=== PATIENT | female | born 1940 | race Caucasian/White ===

== ENCOUNTER 2018-02-05 02:13 | Outpatient (CLI) | payer MEDICARE, OTHER, SELFPAY ==
[2018-02-05 08:18] LABS: ALT 26 U/L (12-78); AST 20 U/L (15-37); Albumin 3.7 g/dL (3.4-5.0); Alkaline Phosphatase 95 U/L (46-116); Anion Gap 6.1 mmol/L (3-11); BUN 17 mg/dL (7-18); Bilirubin, Total 0.5 mg/dL (0.2-1.0); CO2 29.9 mmol/L (21.0-32.0); CREATININE 0.77 mg/dL (0.55-1.02); Chloride 104 mmol/L (98-107); Cholesterol 249 mg/dL (50-200); Glucose 87 mg/dL (70-100); HDL Cholesterol 84 mg/dL (40-60); LDL CHOLESTEROL 147 mg/dL (<100); Potassium 4.5 mmol/L (3.5-5.1); Sodium 140 mmol/L (136-145); Total Protein 6.9 g/dL (6.4-8.2); Triglyceride 90 mg/dL (30-150)
== END 2018-02-05 02:33 ==
DX: E78.5 Hyperlipidemia, unspecified (principal); K21.9 Gastro-esophageal reflux disease without esophagitis; R53.83 Other fatigue
CPT/HCPCS: 36415; 80053; 80061; 83721

== ENCOUNTER 2018-02-20 17:32 | Outpatient (REF) | payer MEDICARE, OTHER, SELFPAY ==
[2018-02-20 22:05] LABS: Bilirubin Negative (Negative); Blood Trace-intact (Negative); Clarity Clear; Glucose Negative (Negative); Ketones Negative (Negative); Leukocyte Esterase Trace (Negative); Nitrite Negative (Negative); Urobilinogen 0.2 EU/dL (Up TO 0.2); pH 5.5 (5-8)
[2018-02-20 22:24] LABS: Bacteria Rare HPF (Negative); C & S Indicated? No; Casts Negative LPF (Negative); Crystals Negative HPF (Negative); Epithelial Cells Negative HPF (Negative); Mucus Negative (Negative); Other Cells Negative (Negative)
== END 2018-02-20 17:52 ==
LOC: LBN 17:32
DX: R31.9 Hematuria, unspecified (principal)
CPT/HCPCS: 81003; 81015

== ENCOUNTER 2018-06-02 12:54 | Outpatient (REF) | payer MEDICARE, OTHER, SELFPAY ==
[2018-06-02 13:47] LABS: Bilirubin Negative (Negative); Blood Negative (Negative); Clarity Clear; Glucose Negative (Negative); Ketones Negative (Negative); Leukocyte Esterase Trace (Negative); Nitrite Negative (Negative); Specific Gravity 1.015 (1.005-1.025); Urobilinogen 0.2 EU/dL (Up TO 0.2); pH 6.5 (5-8)
[2018-06-02 14:37] LABS: Bacteria Rare HPF (Negative); C & S Indicated? Yes; Casts Negative LPF (Negative); Crystals Negative HPF (Negative); Epithelial Cells Negative HPF (Negative); Mucus Negative (Negative); Other Cells Rare Renal (Negative); RBC Negative (0-2)
== END 2018-06-02 13:14 ==
LOC: LBN 12:54
DX: R31.9 Hematuria, unspecified (principal)
CPT/HCPCS: 81003; 81015; 87086

== ENCOUNTER 2019-01-13 00:44 | Outpatient (CLI) | payer MEDICARE, OTHER, SELFPAY ==
[2019-01-13 09:02] LABS: ALT 22 U/L (14-59); AST 17 U/L (15-37); Albumin 3.8 g/dL (3.4-5.0); Alkaline Phosphatase 84 U/L (46-116); BUN 16 mg/dL (7-18); Bilirubin, Total 0.4 mg/dL (0.2-1.0); CREATININE 0.75 mg/dL (0.55-1.02); Calcium 9.5 mg/dL (8.5-10.1); Calculated LDL 143 mg/dL; Chloride 105 mmol/L (98-107); Cholesterol 251 mg/dL (50-200); Glucose 87 mg/dL (70-100); HDL Cholesterol 88 mg/dL (40-60); Potassium 4.5 mmol/L (3.5-5.1); Sodium 141 mmol/L (136-145); Total Protein 7.1 g/dL (6.4-8.2); Triglyceride 102 mg/dL (30-150)
== END 2019-01-13 01:04 ==
DX: E78.5 Hyperlipidemia, unspecified (principal); R53.83 Other fatigue; J30.9 Allergic rhinitis, unspecified
CPT/HCPCS: 36415; 80053; 80061

== ENCOUNTER 2019-02-23 09:21 | Emergency (ER) | payer MEDICARE, OTHER, SELFPAY ==
--- NOTE | 2019-02-23 09:38 | W.ED.GENAD ---
Discharge Plan Disposition Patient Disposition: HOME Condition: Good Discharge Details Chief Complaint: RashLesion Clinical Impression: Tick bite Primary Care Provider: Shelley Ortez ED Provider: Anastasia Cheng Home Meds and New Rx's Prescriptions: Continued cholecalciferol (vitamin D3) 1,000 unit capsule 1,000 unit PO DAILY RF: 0 calcium citrate-vitamin D3 1 EACH tablet 1 ea PO DAILY RF: 0 CENTRUM SILVER TABLET 1 EACH tablet 1 ea PO DAILY RF: 0 Prevnar 13 (PF) 0.5 mL syringe 0.5 ml IM ONCE Qty: 0.5 RF: 0 Shingrix (PF) 50 mcg/0.5 mL suspension for reconstitution 0.5 ml IM ONCE Qty: 1 RF: 0 Discharge Instructions Instructions: Tick Bite (ED) Additional Instructions: You were given a one-time dosing of doxycycline to cover you for Lyme disease after tick bite. This should be only does he need. Please do not take your calcium citrate today. Please monitor areas for signs of bacterial infection including spreading of the redness, pain, discharge, fever/chills. If you develop these or the new/worsening symptoms please seek care urgently once again. Otherwise, please follow-up with your primary care as needed. Referrals: Shelley Ortez, CREDIT AND COLLECTION MANAGER [Primary Care Provider] - Medical Decision Making Patient is an 78-year-old female, otherwise healthy, presenting today with chief complaint of tick bite. She reports that she removed a tick from her back yesterday evening. States that she does not how long it may have been embedded. Reports she does have cats and [place] area this is not unusual to note ticks. States that the tick was clearly embedded and may have been on for at least 48 hours. Denies any fevers or chills. No body aches. No chest pain or shortness of breath. Has a tick card and indicates the deer tick as the offending agent. At this point, patient similar for one-time dose of doxycycline. I do not see any evidence of bacterial infection at this point. Appears appropriately erythematous and irritated from the tick being removed. She was given return precautions. Advise follow-up with primary care as needed. She will be given a 200 mg dose of doxycycline here prior to discharge. All of her questions and concerns were addressed and she is in agreement this plan. Patient does take calcium citrate which is reactive with doxycycline, she has not taken this today and was advised to not take this until at least tomorrow. HPI General Mode of arrival: ambulatory. Date/Time Provider Initiated Documentation: 02/23/19 09:27. Limitations to Documentation: no limitations. Information obtained by: patient and RN notes reviewed. History of Present Illness 78 year old F presents to the emergency department with the chief complaint of tick bite, described as mild, and is localized to the back. Patient reports no radiation. Patient started experiencing this day(s) (found last night) Patient notes rash (small area of erythema where tick had been embedded); denies chest pain, cough, diaphoresis, fever/chills, loss of appetite, nausea/vomiting and shortness of breath. Patient did receive the following treatments prior to arrival, none Related Data Home Medications Medication Instructions Recorded Confirmed Centrum Silver Tablet 1 ea PO DAILY 01/03/13 02/04/19 calcium citrate-vitamin D3 1 ea PO DAILY 01/03/13 02/04/19 cholecalciferol (vitamin D3) 1,000 1,000 unit PO DAILY 02/20/18 02/04/19 unit capsule pneumoc 13-sandra conj-dip cr(PF) 0.5 0.5 ml IM ONCE #0.5 ml 02/12/19 mL IM syringe varicella-zoster [id number] (PF) 50 0.5 ml IM ONCE #1 each 02/12/19 mcg/0.5 mL IM susp, kit Previous Rx's Medication Instructions Recorded pneumoc 13-sandra conj-dip cr(PF) 0.5 0.5 ml IM ONCE #0.5 ml 02/12/19 mL IM syringe varicella-zoster [id number] (PF) 50 0.5 ml IM ONCE #1 each 02/12/19 mcg/0.5 mL IM susp, kit Allergies Allergy/AdvReac Type Severity Reaction Status Date / Time No Known Allergies Allergy Verified 02/23/19 09:25 General Stated Complaint: RashLesion DILLON: 5 Review of Systems Constitutional Constitutional: Reports as per HPI, Denies chills and Denies fever(s) Musculoskeletal Musculoskeletal: Reports as per HPI Integumentary/Breasts Skin/Breast: Reports as per HPI Neurologic Neurologic: Reports as per HPI, Denies sensory deficit and Denies paresthesias [facility] Surgical History Biopsy of breast (~2004) Extraction of cataract 10/2014~B/L Social History Smoking/Tobacco Use Status: Never Alcohol Intake: current Alcohol Intake frequency: a few times a month Alcohol type: beer, wine and hard liquor Drug use: Never Substance use type: does not use Counseling given: No Counseling provided: none Household members: none Pets and animals: Yes Pets and animals: cat(s) Duration: 30-45 minutes/day Frequency: 5-6 times per week Brooke/Religious: Scientology Special brooke needs: No Do you feel safe at home: Yes Do you feel safe in your relationship?: Yes Exam Const General: cooperative, healthy appearing, comfortable, no acute distress and well developed Nutritional Appearance: average body habitus and well nourished Orientation: alert and awake Resp Effort & Inspection: normal respiratory effort, able to speak in complete sentences and no respiratory distress Cardio Rate: regular rate Rhythm: regular rhythm Skin General skin exam: erythema Full body images: 1. 5mm area of erythema wth central open area consistent with where tick was removed. No retained fragments noted. No fluctuance, tenderness, warmth, discharge. Neuro General: alert and awake Cognition: normal cognition Speech: speech normal Gait: normal gait Sensory Exam: no sensory deficits noted Psych Appearance: grossly normal and well kempt Mental Status: mental status grossly normal Speech and Movement: speech and movement normal Course Vital Signs Vital signs: Respiratory Effort Non-Labored 02/23/19 09:23 Pain Level 0 02/23/19 09:23
[2019-02-23] MEDS: Doxycycline Hyclate 100 MG CAP 200 MG PO (09:46)
== END 2019-02-23 09:50 | disposition home or self-care (01) ==
LOC: ER 09:45
PROVIDERS: Emergency Provider Physician Assistant
DX: S21.95XA Open bite of unspecified part of thorax, initial encounter (principal); W57.XXXA Bitten or stung by nonvenomous insect and other nonvenomous arthropods, initial encounter
CPT/HCPCS: 99283

== ENCOUNTER 2020-01-22 02:28 | Outpatient (CLI) | payer MEDICARE, OTHER, SELFPAY ==
[2020-01-22 08:43] LABS: ALT 25 U/L (14-59); AST 21 U/L (15-37); Albumin 3.8 g/dL (3.4-5.0); Alkaline Phosphatase 88 U/L (46-116); Anion Gap 5.3 mmol/L (3-11); BUN 11 mg/dL (7-18); Bilirubin, Total 0.4 mg/dL (0.2-1.0); CO2 30.7 mmol/L (21.0-32.0); CREATININE 0.78 mg/dL (0.55-1.02); Calcium 9.6 mg/dL (8.5-10.1); Chloride 107 mmol/L (98-107); Glucose 92 mg/dL (74-106); Potassium 4.4 mmol/L (3.5-5.1); Sodium 143 mmol/L (136-145); Total Protein 6.9 g/dL (6.4-8.2)
== END 2020-01-22 02:48 ==
DX: Z00.00 Encounter for general adult medical examination without abnormal findings (principal)
CPT/HCPCS: 36415; 80053

== ENCOUNTER 2020-02-24 03:01 | Outpatient (CLI) | payer MEDICARE, OTHER, SELFPAY ==
[2020-02-24 14:22] LABS: TSH (W/Ref FT4) 1.85 uIU/mL (0.36-3.74)
== END 2020-02-24 03:21 ==
DX: E04.9 Nontoxic goiter, unspecified (principal)
CPT/HCPCS: 36415; 84443

== ENCOUNTER 2021-01-17 01:32 | Outpatient (CLI) | payer MEDICARE, OTHER, SELFPAY ==
[2021-01-17 09:07] LABS: ALT 21 U/L (14-59); AST 13 U/L (15-37); Albumin 4.1 g/dL (3.4-5.0); Alkaline Phosphatase 102 U/L (46-116); Anion Gap 7.9 mmol/L (3-11); BUN 14 mg/dL (7-18); Bilirubin, Total 0.4 mg/dL (0.2-1.0); CO2 31.1 mmol/L (21.0-32.0); CREATININE 0.9 mg/dL (0.55-1.02); Calcium 9.5 mg/dL (8.5-10.1); Chloride 105 mmol/L (98-107); Estimated GFR 59.94 (mL/min/1.73m2); Glucose 87 mg/dL (74-106); Potassium 4.7 mmol/L (3.5-5.1); Sodium 144 mmol/L (136-145); Total Protein 7.5 g/dL (6.4-8.2)
== END 2021-01-17 01:33 | disposition home or self-care (01) ==
LOC: LBO 01:32
DX: Z00.00 Encounter for general adult medical examination without abnormal findings (principal)
CPT/HCPCS: 36415; 80053

== ENCOUNTER 2022-02-06 01:56 | Outpatient (CLI) | payer MEDICARE, OTHER, SELFPAY ==
[2022-02-06 08:53] LABS: ALT 27 U/L (14-59); AST 20 U/L (15-37); Albumin 3.8 g/dL (3.4-5.0); Alkaline Phosphatase 86 U/L (46-116); Anion Gap 7.2 mmol/L (3-11); BUN 17 mg/dL (7-18); Bilirubin, Total 0.3 mg/dL (0.2-1.0); CO2 30.8 mmol/L (21.0-32.0); CREATININE 0.7 mg/dL (0.55-1.02); Calcium 9.2 mg/dL (8.5-10.1); Calculated LDL 149 mg/dL (<100); Chloride 104 mmol/L (98-107); Cholesterol 268 mg/dL (<200); Estimated GFR 85.76 (mL/min/1.73m2); Glucose 90 mg/dL (74-106); HDL Cholesterol 85 mg/dL (40-60); Sodium 142 mmol/L (136-145); Total Protein 7.6 g/dL (6.4-8.2); Triglyceride 174 mg/dL (<150)
== END 2022-02-06 01:57 | disposition home or self-care (01) ==
LOC: LBO 01:56
DX: R53.83 Other fatigue (principal); E04.9 Nontoxic goiter, unspecified; E78.2 Mixed hyperlipidemia; K21.9 Gastro-esophageal reflux disease without esophagitis
CPT/HCPCS: 36415; 80053; 80061

== ENCOUNTER 2022-02-24 14:52 | Outpatient (REF) | payer MEDICARE, OTHER, SELFPAY ==
[2022-02-24 16:53] LABS: Abs Immature Grans 0.03 10^3/uL (0.0-0.06); Absolute Basophil Count 0.05 10^3/uL (0.0-0.2); Absolute Eosinophil Count 0.08 10^3/uL (0.0-0.7); Absolute Lymphocyte Count 1.61 10^3/uL (1.2-3.4); Absolute Monocyte Count 0.53 10^3/uL (0.1-0.8); Absolute Neutrophil Count 5.98 10^3/uL (1.2-6.7); Basophils % 0.6; HCT 40.9 % (36.0-46.0); HGB 13.4 g/dL (11.2-15.7); Immature Grans % 0.4; Lymphocytes % 19.4; MCHC 32.8 % (32.0-36.0); MCV 98 fL (80-95); MPV 9.6 fL (8.0-11.0); Monocytes % 6.4; Neutrophils % 72.2; Platelet Count 418 10^3/uL (130-400); RBC 4.19 10^6/uL (3.93-5.22); RDW 13.4 % (11.7-14.6); RDW-SD 48.5 fL; WBC 8.28 10^3/uL (4.4-10.8)
[2022-02-24 17:18] LABS: TSH (W/Ref FT4) 2.04 uIU/mL (0.36-3.74)
== END 2022-02-24 14:53 | disposition home or self-care (01) ==
LOC: LBN 14:52
PROVIDERS: Visit Provider Nurse Practitioner Family
DX: R53.81 Other malaise (principal)
CPT/HCPCS: 87077; 87186; 84443; 85025; 87086

== ENCOUNTER 2023-02-02 09:40 | Emergency (ER) | payer MEDICARE, SELFPAY ==
[2023-02-02 10:04] VITALS: BP 152/78; PULSE 90; RESP 22; TEMP 36.8; O2SAT 95
--- NOTE | 2023-02-02 10:15 | DI.RAD_ITS ---
Exam(s) XR CHEST 2V PA LATERAL EXAM: XR CHEST 2V PA LATERAL CLINICAL HISTORY: Cough, SOB. TECHNIQUE: 2D digital imaging was performed. COMPARISON: CR CHEST 2 VIEWS PA,LAT from 08/23/2015 FINDINGS: 2 views: Heart size is normal. The mediastinum is not widened. There is mild infiltrate in the right upper lobe. Left upper lobe is clear but there appears to be s ome increased markings behind the left side of the heart in the left lower lobe posterior basal segme nt left lower lobe. There are no pleural effusions. IMPRESSION: Patchy right upper lobe infiltrate. Possible infiltrate in left lower lobe posterior basal segment. There are no pleural effusions. DATA REPOSITORY: RADIATION DOSE DELIVERED:
--- NOTE | 2023-02-02 10:20 | W.ED.GENAD ---
Discharge Plan Disposition Patient Disposition: Home Condition: Stable Discharge Details Clinical Impression: Pneumonia and influenza Primary Care Provider: Wooyd Wright ED Provider: Rahda Berg Home Meds and New Rx's Prescriptions: New doxycycline hyclate 100 mg tablet 100 mg PO BID 7 Days Qty: 14 0RF oseltamivir [Tamiflu] 75 mg capsule 75 mg PO BID 5 Days Qty: 10 0RF benzonatate 100 mg capsule 100 mg PO BID-TID PRN (Reason: cough) Qty: 14 0RF Rx Instructions: Take one capsule 2-3 times daily as needed for cough No Action cholecalciferol (vitamin D3) 1,000 unit capsule 1,000 unit PO DAILY calcium citrate-vitamin D3 1 EACH tablet 1 ea PO DAILY Patient Comments: 600mg CENTRUM SILVER TABLET 1 EACH tablet 1 ea PO DAILY ciprofloxacin HCl 500 mg tablet 500 mg PO BID Qty: 10 0RF Discharge Instructions Instructions: Influenza (ED), Community Acquired Pneumonia (ED) Additional Instructions: XR does show some mild left lower lobe pneumonia. Also you are testing positive for Influenza. Take the antibiotics and Tamiflu as directed. Use the Tessalon Perles as needed for cough, use the albuterol inhaler 1 or 2 puffs every 4-6 hours as needed for wheezing. Follow up with primary care provider in 3-5 days. Return to ED sooner if any worsening or concerns. Increase oral fluids. Please take Tylenol or Ibuprofen with food every 4-6 hours as needed for pain and swelling. Referrals: Woody Wright, WIRE MACHINE CUTTER [Primary Care Provider] - 3 days Discharge Data Discharge Date/Time-TO BE ENTERED AT DEPARTURE: 02/02/23 12:07 Medical Decision Making 82 year old female presents to the ED with chief complaint of cough for the last week. She reports a bronchial type cough. She recently got back from a cruise. She denies any fever denies any productive cough. Denies any sore throat ear pain. FLUVID swab obtained upon arrival. She is speaking in full sentences alert and oriented. Denies any nausea vomiting diarrhea. Chest x-ray ordered. Does have a history of a large thyroid gland, osteoporosis hyperlipidemia, GERD, eczema. She does have a history of a tonsillectomy. FLUVID swab ordered. Chest x-ray. Tessalon Perles and albuterol inhaler. Positive for influenza, Negative for Covid. Discussed test results with patient who verbalized understanding. XR pending at this time. Tamiflu ordered and Tessalon Perrles to go ordered. XR shows mild infiltrate, Doxycycline ordered. Discussed XR results with patient who verbalized understanding, Given prescription for Doxycycline, and discussed home care. This text was generated using [employer] dictation system, please disregard any oddities of phrase or misspellings. Imaging Data Radiologic Study: Imaging: X-Ray Radiologist's impression: TECHNIQUE: Imaging protocol: Radiologic exam of the chest. Views: 2 views. COMPARISON: No relevant prior studies available. FINDINGS: Lungs: Mild reticular, interstitial prominence over portions of lungs bilaterally and mild coarse linear markings left lung base suggesting infiltrate, atelectasis, and/or fibrosis, of uncertain age. Pulmonary vasculature appears within normal. Pleural spaces: No pneumothorax and no pleural effusion seen. Heart/Mediastinum: Heart size appears within normal. Vasculature: Atherosclerotic disease aorta. Bones/joints: Curvature, degenerative changes spine. Mild anterior wedge configuration of midthoracic vertebral bodies, of uncertain age. Rib cartilage calcifications. IMPRESSION: 1. Mild infiltrate, atelectasis, and/or fibrosis of lungs including left lung base, of uncertain age. 2. Osteopenia. Mild anterior wedge configuration midthoracic vertebral bodies, of uncertain age. Thank you for allowing us to participate in the care of your patient. Dictated and Authenticated by: Les Haney MD Lab Data Lab results reviewed: Yes I reviewed the patient's lab results. Labs: Laboratory Tests Range/Units 02/02/23 10:18 COVID-19 Source Nasopharynx SARS-CoV-2 (PCR) (Negative) Negative Influenza Type A (PCR) (Negative) Positive A Influenza Type B (PCR) (Negative) Negative RSV (PCR) (Negative) Negative HPI General Mode of arrival: ambulatory. Date/Time Provider Initiated Documentation: 02/02/23 09:42. Limitations to Documentation: no limitations. Information obtained by: patient, RN notes reviewed and old records reviewed. HPI Narrative: 82 year old female presents to the ED with chief complaint of cough for the last week. She reports a bronchial type cough. She recently got back from a cruise. She denies any fever denies any productive cough. Denies any sore throat ear pain. FLUVID swab obtained upon arrival. She is speaking in full sentences alert and oriented. Denies any nausea vomiting diarrhea. Chest x-ray ordered. Does have a history of a large thyroid gland, osteoporosis hyperlipidemia, GERD, eczema. She does have a history of a tonsillectomy. Related Data Home Medications Medication Instructions Recorded Confirmed Centrum Silver Tablet 1 ea PO DAILY 01/03/13 02/24/22 calcium citrate 315 mg-vitamin D3 1 ea PO DAILY 01/03/13 02/24/22 5 mcg (200 unit) tablet cholecalciferol (vitamin D3) 25 1,000 unit PO DAILY 02/20/18 02/24/22 mcg (1,000 unit) capsule ciprofloxacin HCl 500 mg tablet 500 mg PO BID #10 tabs 02/28/22 benzonatate 100 mg capsule 100 mg PO BID-TID PRN cough #14 02/02/23 caps doxycycline hyclate 100 mg tablet 100 mg PO BID 7 days #14 tabs 02/02/23 oseltamivir 75 mg capsule (Tamiflu) 75 mg PO BID 5 days #10 caps 02/02/23 Previous Rx's Medication Instructions Recorded ciprofloxacin HCl 500 mg tablet 500 mg PO BID #10 tabs 02/28/22 benzonatate 100 mg capsule 100 mg PO BID-TID PRN cough #14 02/02/23 caps doxycycline hyclate 100 mg tablet 100 mg PO BID 7 days #14 tabs 02/02/23 oseltamivir 75 mg capsule (Tamiflu) 75 mg PO BID 5 days #10 caps 02/02/23 Allergies Allergy/AdvReac Type Severity Reaction Status Date / Time No Known Allergies Allergy Verified 02/24/22 10:37 General Stated Complaint: RespSymp DILLON: 3 Review of Systems All systems reviewed & are unremarkable except as noted in HPI and below Cardiovascular Cardiovascular: Reports dyspnea Respiratory Respiratory: Reports chest congestion, Reports cough and Reports dyspnea PFSH All Active Problems (Updated 02/02/23 @ 11:37 by Radha Berg NP) Pneumonia and influenza (Acute) Enlarged thyroid gland (Acute) Encounter for annual physical exam (Acute) Xerostomia (Acute) Osteoporosis (Chronic) Hyperlipidemia (Acute) Gastroesophageal reflux disease (Chronic) Allergic rhinitis (Chronic) Medical History Toe erythema Left, 4th & 5th toes Urinary tract infection Surgical History Biopsy of breast (~2004) Extraction of cataract 10/2014~B/L History of cataract removal with insertion of prosthetic lens Status post breast biopsy Family History Mother , CHF at age 77. Heart disease Father , SUICIDE at age 77. Diabetes Neoplasm LUNG Sister No problems noted. Brother Mentally challenged Maternal Grandmother Neoplasm BREAST Son No problems noted. Daughter Uterine cancer Social History Smoking/Tobacco Use Status: Never Smoking risk assessment performed?: Yes Alcohol Intake: current Alcohol Intake frequency: a few times a month Alcohol type: beer, wine and hard liquor Drug use: Never Substance use type: does not use Counseling given: No Counseling provided: none Caregiver/Support person: No Household members: none Housing: house Communication Needs: None Do you need help understanding health information?: Never Pets and animals: Yes Pets and animals: cat(s) Sexually active: No Do you think of yourself as: straight/heterosexual Current gender identity: male What is your relationship status?: How often do you talk on the phone with friends or family?: three or more times per week How often do you get together with friends or relatives?: three or more times per week How often do you attend advent or sabianism services?: 4 or more times per year Do you belong to any clubs or organized social groups?: yes Panel score (0-1 are the most socially isolated patients): 3 What type of physical activity do you participate in: walking Duration: 45-60 minutes/day Frequency: 3-4 times per week Brooke/Spiritism: Orthodoxy Special brooke needs: No Seatbelt use: always Drive intox or ride w/intox milk truck driver: No Do you feel safe at home: Yes Do you feel safe in your relationship?: Yes Exam Narrative Exam Narrative: Constitutional: Alert and oriented x3. Appears stated age. Normal body habitus. Head: Normocephalic, no trauma. Eyes: Pupils PERRL, Red reflex noted, EOM's intact. Eyelids symmetrical without lesions, discharge, or swelling. ENT: Bilateral TM's WNL, External ear normal to inspection, no mastoid TTP, swelling, or erythema, Nasal turbinates WNL, no nasal discharge. Normal dentition, Posterior pharynx WNL, no exudate. Chest: RRR, Normal S1, S2, distal pulses intact. Resp: Lungs clear to auscultation bilaterally, no wheezes, rales, or rhonchi. Abdomen: Soft, non-distended, Normoactive bowel sounds all 4 quads. Musculoskeletal: Normal gait, 5/5 strength to all four extremities. Skin: No suspicious rashes or lesions. Capillary refill less than 2 sec. Neurologic: Cranial nerves II-XII intact. Alert and oriented x 3. Motor: No deficits noted. Sensory: Intact bilaterally all 4 extremities. Reflexes: DTR's intact bilaterally.. Hematologic/Lymphatic: No ecchymosis, no lymphadenopathy. Course Vital Signs Vital signs: Vital Signs Temperature 36.8 C 02/02/23 10:04 Pulse 90 02/02/23 10:04 Respiratory Rate 22 02/02/23 10:04 Blood Pressure 152/78 H 02/02/23 10:04 Pulse Oximetry 95 02/02/23 10:04 Temperature 36.8 C 02/02/23 10:04 Pulse 90 02/02/23 10:04 Respiratory Rate 22 02/02/23 10:04 Blood Pressure 152/78 H 02/02/23 10:04 Blood Pressure Position Sitting 02/02/23 10:04 Pulse Oximetry 95 02/02/23 10:04 Oxygen Delivery Method Room Air 02/02/23 10:04 Oxygen Flow Rate 0 02/02/23 10:04 Pain Level 0 02/02/23 10:04
[2023-02-02] MEDS: Benzonatate 100 MG CAP PO ×2 (10:45→11:47)
[2023-02-02] MEDS: Albuterol HFA 8 GM 60 PUFF INH IH (10:46)
[2023-02-02 11:01] LABS: COVID-19 PCR Negative (Negative); Influenza A PCR Positive (Negative); Influenza B PCR Negative (Negative); RSV PCR Negative (Negative)
[2023-02-02 11:06] LABS: Source Nasopharynx
--- NOTE | 2023-02-02 11:28 | DI.VRAD_ITS ---
PROCEDURE INFORMATION: Exam: XR Chest Exam date and time: 02/02/2023 11:11 AM Age: 82 years old Clinical indication: Cough TECHNIQUE: Imaging protocol: Radiologic exam of the chest. Views: 2 views. COMPARISON: No relevant prior studies available. FINDINGS: Lungs: Mild reticular, interstitial prominence over portions of lungs bilaterally and mild coarse linear markings left lung base suggesting infiltrate, atelectasis, and/or fibrosis, of uncertain age. Pulmonary vasculature appears within normal. Pleural spaces: No pneumothorax and no pleural effusion seen. Heart/Mediastinum: Heart size appears within normal. Vasculature: Atherosclerotic disease aorta. Bones/joints: Curvature, degenerative changes spine. Mild anterior wedge configuration of midthoracic vertebral bodies, of uncertain age. Rib cartilage calcifications. IMPRESSION: 1. Mild infiltrate, atelectasis, and/or fibrosis of lungs including left lung base, of uncertain age. 2. Osteopenia. Mild anterior wedge configuration midthoracic vertebral bodies, of uncertain age. Dictated and Authenticated by: Les Haney MD. Ordering:CHAI Garcia MD
[2023-02-02] MEDS: Oseltamivir 75 MG CAP PO (11:47)
[2023-02-02] MEDS: Doxycycline Hyclate 100 MG CAP PO (11:48)
[2023-02-02 11:56] VITALS: BP 177/82; PULSE 90; RESP 14; TEMP 36.6; O2SAT 93
[2023-02-02 12:07] VITALS: BP 177/82; PULSE 90; RESP 14; TEMP 36.6; O2SAT 93
--- NOTE | 2023-02-02 14:59 | NUR.NOTE ---
Nursing Note:Patient was questioning her prescriptions. Able to answer her questions
== END 2023-02-02 12:07 | disposition home or self-care (01) ==
PROVIDERS: Emergency Provider Registered Nurse Emergency; PCP Nurse Practitioner Family
DX: J18.9 Pneumonia, unspecified organism (principal); J11.00 Influenza due to unidentified influenza virus with unspecified type of pneumonia
CPT/HCPCS: 87637; 99283; 71046; 99284

== ENCOUNTER 2023-02-26 03:01 | Outpatient (CLI) | payer MEDICARE, SELFPAY ==
[2023-02-26 08:05] LABS: HCT 40.1 % (36.0-46.0); HGB 13.2 g/dL (11.2-15.7); MCH 31.7 pg (27.0-33.0); MCHC 32.9 % (32.0-36.0); MCV 96 fL (80-95); MPV 8.8 fL (8.0-11.0); Platelet Count 420 10^3/uL (130-400); RBC 4.16 10^6/uL (3.93-5.22); RDW 13.3 % (11.7-14.6); RDW-SD 47.7 fL; WBC 6.08 10^3/uL (4.4-10.8)
[2023-02-26 08:39] LABS: ALT 21 U/L (14-59); AST 19 U/L (15-37); Albumin 3.4 g/dL (3.4-5.0); Alkaline Phosphatase 89 U/L (46-116); Anion Gap 9.7 mmol/L (3-11); BUN 9 mg/dL (7-18); Bilirubin, Total 0.3 mg/dL (0.2-1.0); CO2 27.3 mmol/L (21.0-32.0); CREATININE 0.8 mg/dL (0.55-1.02); Calcium 9.5 mg/dL (8.5-10.1); Calculated LDL 143 mg/dL (<100); Chloride 106 mmol/L (98-107); Cholesterol 246 mg/dL (<200); Estimated GFR 72.61 (mL/min/1.73m2); Glucose 98 mg/dL (74-106); HDL Cholesterol 79 mg/dL (40-60); Sodium 143 mmol/L (136-145); TSH (W/Ref FT4) 3.56 uIU/mL (0.36-3.74); Total Protein 7.2 g/dL (6.4-8.2); Triglyceride 124 mg/dL (<150)
== END 2023-02-26 03:02 | disposition home or self-care (01) ==
LOC: LBO 03:02
PROVIDERS: PCP Nurse Practitioner Family; Visit Provider Nurse Practitioner Family
DX: R53.83 Other fatigue (principal); E78.2 Mixed hyperlipidemia; E04.9 Nontoxic goiter, unspecified
CPT/HCPCS: 36415; 80053; 80061; 85027; 84443

== ENCOUNTER 2023-11-01 10:37 | Observation (INO) | payer MEDICARE, SELFPAY ==
[2023-11-01] VITALS (28 sets, daily range): BP systolic 84–190; BP diastolic 62–106; PULSE 81–112; RESP 16–34; TEMP 36.2–36.4; O2SAT 95–97
--- NOTE | 2023-11-01 10:30 | RT.EKG_ITS ---
APPROVED REPORT Exam: Resting ECG Reason for Exam: Possible stroke Patient Location: E HR:91 bpm ECG Measurements Heart Rate 91 AXIS NH 184 P 9 QRSd 71 QRS -10 QT 341 T 9 QTc 420 Conclusion Sinus rhythm...normal P axis, V-rate 60- 99 Narrow complex normal sinus rhythm at a rate of 91. Left axis deviation no signs of LVH. No ST segm ent abnormalities. T wave inversion in lead III. No acute injury pattern. No prior for comparison.
--- NOTE | 2023-11-01 10:30 | DI.RAD_ITS ---
Exam(s) XR CHEST 1V IN DI DEPT EXAM: XR CHEST 1V IN DI DEPT CLINICAL HISTORY: Near syncope TECHNIQUE: 2D digital imaging was performed of the chest. One image was obtained. An AP view was ob tained. 2D digital imaging was performed of the chest. Two images were obtained. PA and lateral views were obtained. COMPARISON: CR,XR XR CHEST 2V PA LATERAL from 02/02/2023 FINDINGS: MEDIASTINUM: Normal. HEART: Normal. PULMONARY VASCULATURE: Normal. LUNGS: No focal consolidating infiltrates are seen. PLEURAL SPACE: No pleural effusion or pneumothorax. BONE:Within normal limits for the patient's age. OTHER FINDINGS:Normal. BONE:Within normal limits for the patient's age. There is a mild S-type thoracolumbar scoliosis. IMPRESSION: No acute pulmonary findings. DATA REPOSITORY: RADIATION DOSE DELIVERED:
--- NOTE | 2023-11-01 10:45 | W.ED.GENAD ---
Discharge Plan Disposition Patient Disposition: Admit to [facility] Discharge Details Clinical Impression: Episode of unresponsiveness Primary Care Provider: Woody Wright ED Provider: Zeferino Mancini Home Meds and New Rx's Prescriptions: No Action cholecalciferol (vitamin D3) 1,000 unit capsule 1,000 unit PO DAILY calcium citrate-vitamin D3 1 EACH tablet 1 ea PO DAILY Patient Comments: 600mg CENTRUM SILVER TABLET 1 EACH tablet 1 ea PO DAILY HPI General Date/Time Provider Initiated Documentation: 11/01/23 10:43. HPI Narrative: MDM This is an overall well-appearing mildly tachycardic but afebrile 86-year-old female with feeling of unease and ringing in ears with reported mental status changes concerning for the possibility of subacute CVA for which patient will undergo CT head. No aphasia visual changes neglect or upper extremity weakness so based on fast ED score core I did not feel that the patient required any vessel imaging as I did not feel that she would be a thrombectomy candidate. No reported tonic-clonic activity to suggest seizure. No nuchal rigidity nor fevers so doubt CVA. No emesis to suggest increased risk for electrolyte abnormalities. No chest pain to suggest ACS and ECG is nonischemic. Given no chest pain I am not suspicious for aortic dissection. Given no shortness of breath and no chest pain I am not concerned for Lyme carditis. No history of trauma to head some are concerning for intracranial hemorrhage. No vomiting so my suspicion is low for intracranial hemorrhage. No recent chiropractic manipulation to suggest increased risk for cervical arterial dissection. No significant dizziness to suggest posterior circulation CVA. No nystagmus I did not apply the hints exam. 11:38 AM Negative troponin. Comprehensive metabolic panel with no acute electrolyte abnormalities. No ANGEL. No LFT abnormalities. Normal reassuring magnesium. CBC showing macrocytosis but no anemia. No leukocytosis. Thrombocytosis improved compared to prior. I spoke to patient's son who reported that three days stiffen up and turn her head left. This episode lasted for several seconds and resolved spontaneously. Patient and the patient's age and lack of postictal phase and loss of bowel or bladder control my suspicion is higher for syncope versus seizure. 1:20 PM I spoke with neurology, Dr. Haque. He advised hospitalization for MRI telemetry and EEG. I spoke with Dr. Hopkins and he graciously agreed to accept the patient for hospitalization. I ordered an MRI EEG and TSH along with an echocardiogram. 1:30 PM I updated the patient on this plan of care. She requested to be a full code. Chronic conditions affecting the care of the patient: N/A History obtained from an outside historian: N/A External record [place] [facility] [place] [Diagnostic interpretations performed by me: Per my independent interpretation chest x-ray shows: No acute cardiopulmonary process Per my independent interpretation EKG shows: Narrow complex normal sinus rhythm at a rate of 91. Left axis deviation no signs of LVH. No ST segment abnormalities. T wave inversion in lead III. No acute injury pattern. No prior for comparison. ]Medications: N/A Social determinants of health affecting disposition: N/A Management discussed with: Neurology and hospitalist Treatment/interventions considered: N/A Response to therapies provided: N/A HPI This is a previously healthy 83-year-old female with no history of hypertension hyperlipidemia nor diabetes arrived to the emergency department via private vehicle in the setting of an intense ringing in her ears. This is occurred multiple times over the past several days. Her symptoms began initially 3 days ago. She feels nervous as if something is going to happen. She denies any weakness. She has had no difficulty speaking. No recent falls. No chest pain. No dysuria nor frequency. No abdominal pain nor vomiting. She reportedly transiently had an episode of unresponsiveness several days ago when she was with her son. Exam General: Well-appearing in no acute distress speaking in complete sentences. Head: Normocephalic, atraumatic. Eye:[Pupils equal, round reactive to light.] Extraocular eye movements intact. No conjunctival injection. No scleral icterus. Ear, nose, mouth, throat: Grossly normal inspection. Normal voice, handling secretions normally. Neck: Trachea midline. Cardiovascular: Well-perfused distal extremities. Regular rate and rhythm Respiratory: Nonlabored respiration. Clear lungs bilaterally Gastrointestinal: Nondistended abdomen. Soft nontender Musculoskeletal: No edema. Moving all 4 extremities spontaneously. Skin: Normal for age and race, grossly normal temperature and turgor. No acute rash. Neurologic: Alert and appropriate, no apparent acute deficits. GCS 15. Cranial nerves II through XII intact grossly. 5 out of 5 bilateral upper and lower extremity strength. No dysmetria. No dysdiadochokinesia. Please see neuroexam for full NIH stroke scale. Psychiatric: Mood and manner are appropriate. Grooming and personal hygiene are appropriate. Related Data Home Medications Medication Instructions Recorded Confirmed Centrum Silver Tablet 1 ea PO DAILY 01/03/13 11/01/23 calcium citrate 315 mg-vitamin D3 1 ea PO DAILY 01/03/13 11/01/23 5 mcg (200 unit) tablet cholecalciferol (vitamin D3) 25 1,000 unit PO DAILY 02/20/18 11/01/23 mcg (1,000 unit) capsule Allergies Allergy/AdvReac Type Severity Reaction Status Date / Time No Known Allergies Allergy Verified 11/01/23 10:46 General Stated Complaint: GenMedical DILLON: 3 Course Vital Signs Vital signs: Vital Signs Temperature 36.4 C L 11/01/23 10:41 Pulse 107 H 11/01/23 10:41 Respiratory Rate 22 11/01/23 10:41 Blood Pressure 178/81 H 11/01/23 10:41 Pulse Oximetry 97 11/01/23 10:41 Temperature 36.4 C L 11/01/23 10:41 Temperature Source Temporal Artery Scan 11/01/23 10:41 Pulse 107 H 11/01/23 10:41 Respiratory Rate 22 11/01/23 10:41 Blood Pressure 178/81 H 11/01/23 10:41 Blood Pressure Position Sitting 11/01/23 10:41 Pulse Oximetry 97 11/01/23 10:41 Pain Level 0 11/01/23 10:41 Medical Decision Making Quality:SDOH Health Related Social Needs: No Data to Display PFSH All Active Problems (Updated 11/01/23 @ 13:23 by Zeferino Mancini MD) Episode of unresponsiveness (Acute) Enlarged thyroid gland (Acute) Encounter for annual physical exam (Acute) Xerostomia (Acute) Osteoporosis (Chronic) Hyperlipidemia (Acute) Gastroesophageal reflux disease (Chronic) Allergic rhinitis (Chronic) Medical History Urinary tract infection Toe erythema Left, 4th & 5th toes Surgical History History of cataract removal with insertion of prosthetic lens Status post breast biopsy Extraction of cataract 10/2014~B/L Biopsy of breast (~2004) Family History Mother , CHF at age 77. Heart disease Father , SUICIDE at age 77. Diabetes Neoplasm LUNG Sister No problems noted. Brother Mentally challenged Maternal Grandmother Neoplasm BREAST Son No problems noted. Daughter Uterine cancer Social History (Updated 02/26/23 @ 09:21 by Suzette Manley) Smoking/Tobacco Use Status: Never Second Hand Exposure: Yes Smoking risk assessment performed?: Yes Alcohol Intake: current Alcohol Intake frequency: a few times a month Alcohol type: beer, wine and hard liquor Drug use: Never Substance use type: does not use Counseling given: No Counseling provided: none Adopted: No Caregiver/Support person: No Foster care: No Household members: none Housing: house Number of Children: 2 number of grandchildren: 4 Communication Needs: None Education Level: college Do you need help understanding health information?: Never current occupation: Retired Pets and animals: Yes Pets and animals: cat(s) Sexually active: No Do you think of yourself as: straight/heterosexual Current gender identity: female What is your relationship status?: How often do you talk on the phone with friends or family?: three or more times per week How often do you get together with friends or relatives?: three or more times per week How often do you attend methodist or religion services?: 4 or more times per year Do you belong to any clubs or organized social groups?: yes Panel score (0-1 are the most socially isolated patients): 3 What type of physical activity do you participate in: walking and weight lifting Duration: < 15 minutes/day Frequency: 5-6 times per week Brooke/Hoahaoism: Denominational Special brooke needs: No Agree to transfusion: Yes Seatbelt use: always Helmet use: Yes Drive intox or ride w/intox dairy truck driver: No Working smoke detector in home: Yes Carbon monox detector in home: Yes Firearms in home: No Do you feel safe at home: Yes Do you feel safe in your relationship?: Yes Victim of physical abuse: No Victim of emotional abuse: No Victim of sexual abuse: No Would you like helpful sources: No
--- NOTE | 2023-11-01 11:00 | DI.CT_ITS ---
Exam(s) CT HEAD WO EXAM: CT HEAD WO CLINICAL HISTORY: Near syncope. TECHNIQUE: Imaging Protocol: Axial computed tomography images with coronal and sagittal reformatted images were created and reviewed COMPARISON: No exams were available for comparison FINDINGS: Ventricles and Extra axial spaces: Normal in size and morphology for the patient's age. Hemorrhage: None. Cerebral parenchyma: There are areas of decreased attenuation in the white matter consistent with chr onic microvascular ischemic disease. No mass effect is identified. No acute territorial infarct is seen. Midline shift: None. Brainstem/Cerebellum: Normal. Calvarium: Normal. Visualized Paranasal sinuses/Mastoids: Clear. Soft Tissues: Unremarkable. IMPRESSION: No acute intracranial process. RADIATION DOSE DELIVERED: 636.93mGy.cm Total DLP DATA REPOSITORY: All CT scans at this facility are submitted to the National Radiology Data Registry (NRDR) Dose Index Registry (DIR) with the [employer] (ACR). RADIATION OPTIMIZATION: All CT scans at this facility use at least one of these dose optimization te chniques: automated exposure control; mA and/or kV adjustment per patient size (includes targeted exa ms where dose is matched to clinical indication); or iterative reconstruction.
[2023-11-01 11:18] LABS: Abs Immature Grans 0.03 10^3/uL (0.0-0.06); Absolute Basophil Count 0.05 10^3/uL (0.0-0.2); Absolute Eosinophil Count 0.12 10^3/uL (0.0-0.7); Absolute Lymphocyte Count 1.88 10^3/uL (1.2-3.4); Absolute Monocyte Count 0.47 10^3/uL (0.1-0.8); Absolute Neutrophil Count 5.22 10^3/uL (1.2-6.7); Basophils % 0.6 %; Eosinophils % 1.5 %; HCT 40.8 % (36.0-46.0); HGB 13.7 g/dL (11.2-15.7); Immature Grans % 0.4 %; Lymphocytes % 24.2 %; MCH 32.2 pg (27.0-33.0); MCHC 33.6 % (32.0-36.0); MCV 96 fL (80-95); MPV 8.5 fL (8.0-11.0); Neutrophils % 67.3 %; Platelet Count 407 10^3/uL (130-400); RBC 4.25 10^6/uL (3.93-5.22); RDW-SD 46.2 fL; WBC 7.77 10^3/uL (4.4-10.8)
[2023-11-01 11:36] LABS: ALT 24 U/L (14-59); AST 20 U/L (15-37); Albumin 3.7 g/dL (3.4-5.0); Alkaline Phosphatase 85 U/L (46-116); Anion Gap 7.9 mmol/L (3-11); BUN 12 mg/dL (7-18); CO2 27.1 mmol/L (21.0-32.0); CREATININE 0.8 mg/dL (0.55-1.02); Chloride 106 mmol/L (98-107); Estimated GFR 72.16 (mL/min/1.73m2); Glucose 93 mg/dL (74-106); Magnesium 1.9 mg/dL (1.8-2.4); Potassium 3.8 mmol/L (3.5-5.1); Sodium 141 mmol/L (136-145); Total Protein 7.3 g/dL (6.4-8.2); Troponin I < 50 ng/L (< or =60)
--- NOTE | 2023-11-01 12:45 | DI.MRI_ITS ---
Exam(s) MR BRAIN WO EXAM: MR BRAIN WO CLINICAL HISTORY: ? sz TECHNIQUE: Multiplanar multisequence MRI of the brain was performed. COMPARISON: CT CT HEAD WO from 11/01/2023 FINDINGS: VENTRICLES AND EXTRA AXIAL SPACES: Normal in size and morphology for the patient's age. MIDLINE SHIFT: None. CEREBRAL PARENCHYMA: No focus of restricted diffusion to suggest acute infarct. No space-occupying le cliff identified. There are areas of hyperintense signal in the white matter on the FLAIR and T2 weigh tila images consistent with chronic microvascular ischemic disease. There is atrophy of the right hip pocampus with right temporal horn dilatation. This can be seen with mesial temporal sclerosis. HEMORRHAGE: None. BRAINSTEM/CEREBELLUM: Normal. CALVARIUM: Normal. VISUALIZED PARANASAL SINUSES/MASTOIDS:Clear. KENAITZE OF HILARIO: Normal flow void. PITUITARY GLAND: Unremarkable. OTHER FINDINGS: None. IMPRESSION: 1. Findings suggesting mesial temporal sclerosis. 2. No evidence of an acute territorial infarct. 3. Age-related cerebral atrophy and chronic microvascular ischemic disease. DATA REPOSITORY:
--- NOTE | 2023-11-01 13:30 | DI.US_ITS ---
APPROVED REPORT EXAM: Comprehensive 2D, Doppler, and color-flow Echocardiogram Patient Location: ER Intake Counselor: Pete Elder RDCS (AE) Indications: syncope Echo Enhancing Agent Indication: Rule out Shunt Agent(s) / Amount(s) Used: Agitated Saline 30.0 cc Comments: Contrast study was performed with 3 IV injections of 10ccs of agitated normal saline, at re st, with cough and post valsalva maneuver. Negative contrast study for shunt flow. Conclusion Normal left ventricular wall thickness and chamber size. Ejection fraction is 55 to 60%. Wall motio n is normal Normal right ventricular size and function Both atria are normal in size No intracardiac shunting is identified with injection of agitated saline Aortic valve is calcified. There is moderate aortic stenosis. Peak gradient is 35, mean is 22 mmHg. Calculated aortic valve area 0.9 cm??. There is no aortic regurgitation Wall motion Left Ventricle The left ventricle is grossly normal size. Unable to measure due to vertical orientation of the LV. T he overall left ventricular systolic function appears normal. Unable to assess LV wall thickness. The re is normal LV segmental wall motion. There is no ventricular septal defect visualized. LVEF is55-60 %. Right Ventricle The right ventricle is normal size. The right ventricular systolic function is normal. Atria The left atrium size is normal. The right atrium size is normal. The interatrial septum is intact wit h no evidence for an atrial septal defect. Saline bubble contrast intravenous injection does not demo nstrate PFO. Aortic Valve Aortic valve is calcified. Peak aortic valve gradient is 35.70 mmHg. Highest mean aortic valve gradie nt is 22.21 mmHg. Calculated VAL by the continuity equation is 0.9 cm2. No aortic regurgitation is pr esent. Mitral Valve The mitral valve is normal in structure. No evidence of mitral valve stenosis. Trace to mild mitral r egurgitation. Tricuspid Valve The tricuspid valve is normal in structure. There is no tricuspid valve stenosis. Trace tricuspid reg urgitation. Pulmonic Valve The pulmonary valve is normal in structure. There is no pulmonic valvular stenosis. There is no pulmo kristina valvular regurgitation. Great Vessels The aortic root is normal in size. The ascending aorta is normal in size. IVC is normal in size and c ollapses >50% with inspiration. Pericardium There is no pericardial effusion. 2D Dimensions Ao Root d 2.62 cm F: 2.7 - 3.3 Ao Asc Diam d 3.17 cm F: 2.3 - 3.1 M-Mode TAPSE 1.66 cm (M/F) >1.7 Auto EF LV EDV A4C 70.8 mL LV EDV A2C 56.4 mL LV EDV BP 62.9 mL LV ESV A4C 37.1 mL LV ESV A2C 31.3 mL LV ESV BP 33.8 mL LVEF(%) A4C 47.7 % LVEF(%) A2C 44.5 % LVEF(%) BP 46.3 % LV SV A4C 33.8 ml LV SV A2C 25.1 ml LV SV BP 29.1 ml LV CO A4C 3.2 L/min LV CO A2C 2.5 L/min LV CO BP 2.8 L/min HR A4C 94.50 BPM HR A2C 99.17 BPM LV EDV Index (BP) LA Volume LA Length A4C 3.3 cm LA Length A2C 4.6 cm LA Area A4C s 7.01 cm2 LA Area A2C s 9.34 cm2 LA Vol A4C A-L 12.59 mL LA Vol A2C A-L 16.08 mL LA Vol Biplane A-L 16.8 mL LA Vol/BSA A4C A-L LA Vol/BSA A2C A-L LA Vol/BSA BP A-L 11.0 mL/m2 LA Vol A4C MOD 12.1 mL LA Vol A2C MOD 16.0 mL LA Vol BP MOD 16.4 mL RA Volume RA Area A4C 4.9 cm2 RA ESV A4C (A-L) 10.4mL RA Vol/BSA A4C A-L RA Length A4C 1.9 cm RA ESV A4C (MOD) 9.3mL LV Diastology MV E' medial 0.137 (>0.07 m/s) MV E Vmax 0.68 (0.4-1.3 m/s) MV E/E' MED 4.94 (<14) MV A Vmax 1.10 (0.4-1.3 m/s) MV E' lateral 0.098 (>0.1 m/s) E/A Ratio 0.6 MV E/E' LAT 6.89 (<14) MV E' Average 0.118 m/s MV E/E'(average) 5.75 Aortic Valve AoV Vmax 2.99 m/s LVOT Vmax 1.04 m/s AoV Peak Grad 35.7 mmHg LVOT Peak Grad 4.3 mmHg AoV Area (Vmax) 0.84 cm2 LVOT VTI 0.245 m AoV VTI 0.659 m LVOT Mean Grad 2.5 mmHg AoV Mean Govind. 2.24 m/s LVOT SV 59.05 mL AoV Mean Grad 22.2 mmHg LVOT Diam s 1.75 cm AoV Area (VTI) 0.90 cm2 Velocity Ratio 0.35 Mitral Valve MV DT 284 (160-240 msec)
--- NOTE | 2023-11-01 14:16 | HPE_ITS ---
Date of service: 11/01/23 Time of Service: 14:16 Assessment and Plan Assessment and plan (1) Episode of unresponsiveness: Status: Acute Assessment and plan: intially I thought her symptoms were consistent syncope/near syncope but after further hx and now w/ abnormal MRI I am suspecting she has temporal lobe seizures w/ absence. I have sent her MRI images to [facility] and have requested repeat follow up teleneurology consult to discuss MRI findings and recommendations on starting her on AED medicaitons. She is quite anxious about going on new meds and what side effects it may have. 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 Patient and her daughter have been told no driving or swimming or tub baths and to avoid any activities in which she could be harmed in the event of sudden collapse from seizure/syncope. (3) Aortic stenosis: Status: Chronic Assessment and plan: moderate A.S. per echo. I have discussed this finding w/ her and given her copies of her echocardiogram. I told her that there is no immediate concerns but this needs follow up by cardiology w/ serial monitoring probably annual. Qualifiers: Cardiac valve disease etiology: etiology unspecified Qualified Code(s): I35.0 - Nonrheumatic aortic (valve) stenosis History of Present Illness Narrative: 83-year-old female right handed w/ past medical history of hyperlipidemia, GERD, thyromegaly, osteoporosis, who presents to the E.D. w/ c/o of experiencing intense ringing in her ears that began 3 days ago, a feeling of doom and per Dr. Mancini's report to me of his discussion w/ her son, she had a period of decreased consciousness associated stiffness. No noted tonic-clonic activity, no fevers or rigors and no dyspnea or CP and no focal weakness or language deficits. No hx of head or neck trauma. Patient had CT head done w/o contrast and no acute intracranial process was noted. Dr. Mancini obtained tele-neurology consult w/Dr. Jelani Haque. he obtained the following info from discussion w/ her son Juaquin: on 10/29/23 patient developed tinnitus in both ears described as a ringing guillaume, lasting a few seconds occurring while sitting w/ no positional changes. Repeat episode occurred again later that day again lasting a few seconds. Her son was w/ her during the first episode and reported yelling at her but she was not responding to him. Patient and son denied any focal weakness or language difficulty, and no urinary incontinence or tongue/mouth laceration. Son says that they were sitting on the porch together during this episode in which her eyes were open but she was not responding to him and this lasted 3 to 5 seconds. Tele neurology exam was nonfocal and the neurologist recommended admission for observation on telemetry, obtian EEG and MRI but decision for AED meds was deferred pending results of these tests. MRI was done as well as echo which was ordered by Dr. Mancini as part of syncope workup. However, EEG could not be completed today and this is Saturday afternoon so EEG will not get done until next week. Review of Systems All systems reviewed & are unremarkable except as noted in HPI and below Constitutional Constitutional: Reports as per HPI, Denies frequent falls, Denies headache(s) and Denies weakness Eyes Eyes: Denies loss of vision ENT Ears, Nose, Mouth, and Throat: Denies vertigo, Denies dizziness and Denies headache(s) Cardiovascular Cardiovascular: Reports system reviewed and no additional complaints, except as documented and Denies syncope Respiratory Respiratory: Reports system reviewed and no additional complaints, except as documented Gastrointestinal Gastrointestinal: Reports system reviewed and no additional complaints, except as documented Genitourinary Genitourinary: Reports system reviewed and no additional complaints, except as documented Musculoskeletal Musculoskeletal: Denies abnormal gait, Denies numbness and Denies tingling Neurologic Neurologic: Denies abnormal movements, Denies abnormal speech, Denies abnormal gait, Denies burning sensations, Denies confusion, Denies vertigo, Denies dizziness, Denies syncope, Denies frequent falls, Denies headache(s), Denies lack of coordination, Denies localized weakness, Denies loss of vision, Denies memory loss, Denies numbness, Denies other visual disturbances, Denies convulsions, Denies sensory deficit, Denies tingling, Denies paresthesias, Denies tremor(s) and Denies weakness Psychiatric Psychiatric: Reports system reviewed and no additional complaints, except as documented, Denies confusion and Denies memory loss Endocrine Endocrine: Reports system reviewed and no additional complaints, except as documented Hematologic/Lymphatic Hematologic/Lymphatic: Reports system reviewed and no additional complaints, except as documented PFSH All Active Problems (Updated 11/01/23 @ 19:07 by Michael Cullen MD) Aortic stenosis (Chronic) Episode of unresponsiveness (Acute) Enlarged thyroid gland (Acute) Encounter for annual physical exam (Acute) Xerostomia (Acute) Osteoporosis (Chronic) Hyperlipidemia (Acute) Gastroesophageal reflux disease (Chronic) Allergic rhinitis (Chronic) Medical History Urinary tract infection Toe erythema Left, 4th & 5th toes Surgical History History of cataract removal with insertion of prosthetic lens Status post breast biopsy Extraction of cataract 10/2014~B/L Biopsy of breast (~2004) Family History Mother , CHF at age 77. Heart disease Father , SUICIDE at age 77. Diabetes Neoplasm LUNG Sister No problems noted. Brother Mentally challenged Maternal Grandmother Neoplasm BREAST Son No problems noted. Daughter Uterine cancer Social History Smoking/Tobacco Use Status: Never Second Hand Exposure: Yes Smoking risk assessment performed?: Yes Alcohol Intake: current Alcohol Intake frequency: a few times a month Alcohol type: beer, wine and hard liquor Drug use: Never Substance use type: does not use Counseling given: No Counseling provided: none Adopted: No Caregiver/Support person: No Foster care: No Household members: none Housing: house Number of Children: 2 number of grandchildren: 4 Communication Needs: None Education Level: college Do you need help understanding health information?: Never current occupation: Retired Pets and animals: Yes Pets and animals: cat(s) Sexually active: No Do you think of yourself as: straight/heterosexual Current gender identity: female What is your relationship status?: How often do you talk on the phone with friends or family?: three or more times per week How often do you get together with friends or relatives?: three or more times per week How often do you attend latter-day or restoration services?: 4 or more times per year Do you belong to any clubs or organized social groups?: yes Panel score (0-1 are the most socially isolated patients): 3 What type of physical activity do you participate in: walking and weight lifting Duration: < 15 minutes/day Frequency: 5-6 times per week Brooke/Pentecostalism: Tenriism Special brooke needs: No Agree to transfusion: Yes Seatbelt use: always Helmet use: Yes Drive intox or ride w/intox racing driver: No Working smoke detector in home: Yes Carbon monox detector in home: Yes Firearms in home: No Do you feel safe at home: Yes Do you feel safe in your relationship?: Yes Victim of physical abuse: No Victim of emotional abuse: No Victim of sexual abuse: No Would you like helpful sources: No Meds Allergies and Home Medications Allergies Allergy/AdvReac Type Severity Reaction Status Date / Time No Known Allergies Allergy Verified 11/01/23 10:46 Home Medications Medication Instructions Recorded Confirmed Type Centrum Silver Tablet 1 ea PO DAILY 01/03/13 11/01/23 History calcium citrate 315 mg-vitamin D3 1 ea PO DAILY 01/03/13 11/01/23 History 5 mcg (200 unit) tablet cholecalciferol (vitamin D3) 25 1,000 unit PO DAILY 02/20/18 11/01/23 History mcg (1,000 unit) capsule Exam Narrative Exam Narrative: Alert and oriented x4 HEENT: Atraumatic normocephalic, pupils equally round reactive to light and accommodation, extraocular motion intact, TMs intact, nares moist and patent without exudate or bleeding, oropharynx noninjected without exudate, normal movement of palate and tongue, tongue midline Neck: Supple, nontender, without thyromegaly or lymphadenopathy or JVD. Bilateral carotid murmurs with slightly diminished carotid upstroke Lungs: Clear to auscultation and percussion Heart: Regular rate and rhythm with grade 3 crescendo decrescendo murmur over the second right intercostal space with transmission to the base of her carotids, no S3 gallop, rub no palpable thrill Abdomen: Nondistended, normal bowel sounds, nontender to palpation or percussion, no organomegaly, no bruits, no palpable masses Genitalia and rectal exam: Deferred Breasts: Deferred Extremities: Normal range of motion with normal strength. No peripheral cyanosis or edema. Normal pulses Neurologic: Cranial nerves II through XII grossly within normal limits. Normal strength and sensation over the face trunk and extremities. DTRs within normal limits. No tremors or asterixis. Babinski reflex absent Results Imaging Imaging Studies: CT HEAD w/o contrast: FINDINGS: Ventricles and Extra axial spaces: Normal in size and morphology for the patient's age. Hemorrhage: None. Cerebral parenchyma: There are areas of decreased attenuation in the white matter consistent with chronic microvascular ischemic disease. No mass effect is identified. No acute territorial infarct is seen. Midline shift: None. Brainstem/Cerebellum: Normal. Calvarium: Normal. Visualized Paranasal sinuses/Mastoids: Clear. Soft Tissues: Unremarkable. IMPRESSION: No acute intracranial process MRI BRAIN W/O CONTRAST: FINDINGS: VENTRICLES AND EXTRA AXIAL SPACES: Normal in size and morphology for the patient's age. MIDLINE SHIFT: None. CEREBRAL PARENCHYMA: No focus of restricted diffusion to suggest acute infarct. No space-occupying lesion identified. There are areas of hyperintense signal in the white matter on the FLAIR and T2 weighted images consistent with chronic microvascular ischemic disease. There is atrophy of the right hippocampus with right temporal horn dilatation. This can be seen with mesial temporal sclerosis. HEMORRHAGE: None. BRAINSTEM/CEREBELLUM: Normal. CALVARIUM: Normal. VISUALIZED PARANASAL SINUSES/MASTOIDS:Clear. LUMMI OF HILARIO: Normal flow void. PITUITARY GLAND: Unremarkable. OTHER FINDINGS: None. IMPRESSION: 1. Findings suggesting mesial temporal sclerosis. 2. No evidence of an acute territorial infarct. 3. Age-related cerebral atrophy and chronic microvascular ischemic disease. Labs 11/01/23 11:13 11/01/23 11:13 Labs: Laboratory Results - last 24 hr 11/01/23 11:13 WBC 7.77 RBC 4.25 Hgb 13.7 Hct 40.8 MCV 96 H MCH 32.2 MCHC 33.6 RDW 13.0 Plt Count 407 H MPV 8.5 Immature Gran % 0.4 Neutrophils % 67.3 Lymphocytes % 24.2 Monocytes % 6.0 Eosinophils % 1.5 Basophils % 0.6 Nucleated RBC % 0.0 Absolute Neutrophils 5.22 Absolute Lymphocytes 1.88 Absolute Monocytes 0.47 Absolute Eosinophils 0.12 Absolute Basophils 0.05 Sodium 141 Potassium 3.8 Chloride 106 Carbon Dioxide 27.1 Anion Gap 7.9 BUN 12 Creatinine 0.8 Est GFR (CKD-EPI 2020) 72.16 Glucose 93 Calcium 9.0 Magnesium 1.9 Total Bilirubin 0.30 AST 20 ALT 24 Alkaline Phosphatase 85 Troponin I < 50 Total Protein 7.3 Albumin 3.7 Last Vital Signs Temp 36.4 C L 11/01/23 10:41 Pulse 87 11/01/23 13:31 Resp 19 11/01/23 13:31 BP 115/99 H 11/01/23 13:31 Pulse Ox 97 11/01/23 10:41 Time Spent Time spent with Patient: 55-74 minutes Time was spent: preparing to see the patient(eg.review tests), obtaining and/or reviewing separately otained hiistory, ordering medications,tests, procedures, referring, communicating with other health respiratory care practitioner (discussion w/ Dr. Flores and w/ nursing), indepentently interpreting results, counseling the patient and care coordination
--- NOTE | 2023-11-01 14:40 | IN_ITS ---
PT Notes Visit Reasons: possible stroke Physical Therapy Inpatient Initial Evaluation Date: 11/01/2023 Referring Doctor: Michael Cullen MD PT Orders: PT CONSULT: Fall Safety assessment Precautions: Fall. Standard. Activity as tolerated. Patient Profile/Admitting Diagnosis: Suzette is an 83-year-old female admitted to the ED today with report of ringing sensation in ears multiple times in the past several days and altered mental status. She is being admitted for continued assessment to rule out subacute CVA. PMHX: All Active Problems (Updated 11/01/23 @ 13:23 by Zeferino Manicni MD) Episode of unresponsiveness (Acute) Enlarged thyroid gland (Acute) Encounter for annual physical exam (Acute) Xerostomia (Acute) Osteoporosis (Chronic) Hyperlipidemia (Acute) Gastroesophageal reflux disease (Chronic) Allergic rhinitis (Chronic) Medical History Urinary tract infection Toe erythema Left, 4th & 5th toes Surgical History History of cataract removal with insertion of prosthetic lens Status post breast biopsy Extraction of cataract 10/2014~B/L Biopsy of breast (~2004) Social History/Home Situation: Lives alone in a private home with 2 steps to enter with rails on B sides. Independent with all aspects of ADLs prior to admission. Still drives. Equipment Owned/DME: None Subjective: From below forehead down, patient states she feels normal. Still has the sensation of spaciness in her head which she feels she wants to know and understand more about. Feels that she may have had a TIA. On Saturday, felt some ringing sensation through her R ear which she felt moved over to her L side, symptom has not happened since. Her son stated that she looked like she went stiff for a moment before she could respond to him calling her name that day. Drover herself to the ED for examination as she still has that persistent spaciness. Objective: General Observation: Seated on bedside chair. IV access through antecubital area. Mental Status: Alert and oriented as to person, place, time, and purpose. Able to pay attention, focus, and respond appropriately. Pain: None reporetd Vital Signs: 143/82 mmHg, 106 bpm, 98% on RA ROM: Right Upper Extremity: Shoulder Flexion WFL. Shoulder abduction WFL. Elbow flexion WFL. Wrist flexion WFL. Functional opening and closing of hand WFL. Left Upper Extremity: Shoulder Flexion WFL. Shoulder abduction WFL. Elbow flexion WFL. Wrist flexion WFL. Functional opening and closing of hand WFL. Right Lower Extremity: Hip flexion WFL. Hip abduction WFL. Knee flexion WFL. Ankle dorsiflexion WFL. Ankle plantarflexion WFL. Left Lower Extremity: Hip flexion WFL. Hip abduction WFL. Knee flexion WFL. Ankle dorsiflexion WFL. Ankle plantarflexion WFL. Strength: Right Upper Extremity: Shoulder flexors 4-/5. Shoulder abductors 4-/5. Elbow flexors 5/5. Elbow extensors 4/5. Exhaust And Muffler Fitter strong. Left Upper Extremity: Shoulder flexors 4-/5. Shoulder abductors 4-/5. Elbow flexors 5/5. Elbow extensors 4/5. Exhaust And Muffler Fitter strong. Right Lower Extremity: Hip flexors 4/5. Hip abductors 4/5. Knee flexors 4/5. Knee extensors 4/5. Ankle dorsiflexors 4/5. Ankle plantarflexors 4/5. Left Lower Extremity: Hip flexors 4/5. Hip abductors 4/5. Knee flexors 4/5. Knee extensors 4/5. Ankle dorsiflexors 4/5. Ankle plantarflexors 4/5. Bed Mobility/Transfers: Supine to sit independent Sit to supine independent Sit to stand independent Stand to sit independent Bed to reclining chair supervision Reclining chair to bed supervision Gait: 300 feet without assistive device with stand by assist. Mild path deviation x 2 but no LOB. No report of increased spaciness. Denied headache, chest pain, and lightheadedness. No decline in gait speed per patient. Balance: Static Sitting: Normal Dynamic Sitting: Normal Static Standing: Fair Dynamic Standing: Fair Special Tests: Mobility Limitations Standardized Measure [facility]-PAC 6 clicks Basic Mobility Inpatient Short Form: Raw Score: 24 CMS Score: 0% deficit Romberg Test: Negative 4-Stage balance Test: Feet together 10 seonds Semi-tandem 10 seconds Full tandem with L foot leading 10 seonds Full Tandem with r foot leading <10 seonds One-legged stance Unable Rapid Alternating movements: Intact Pronator Drift: Negative Informed Consent/Education: Patient was instructed in purpose of PT consult and plan of care. Agreeable to proceed with established PT POC to achieve personal goals. Assessment: Strength to B UE/LE symmetric. Mild path deviation x 2 during level surface ambulation which may be age-related. Ringing sensation resolved. Feeling of being spacey remains. Patient presents with clinical signs and symptoms consistent with current/admitting diagnoses that have resulted to mobility limitations as demonstrated by the following impairment level findings: 1. Impaired standing balance 2. Impaired activity tolerance Impairments are contributing to the following functional limitations: 1. Increased completion time for mobility ADL performance 2. Increased risk for falls 3. Difficulty with managing steps alone safely Patient is assessed as a [id number] moderate complexity based on the following: History: 83-year-old female with past medical history as indicated above Examination: Demonstrable impairment in strength, balance, and mobility level with underlying impairments and functional limitations as exhibited above as well as deficit score of 11% utilizing the [facility] Mobility Inpatient Short Form Presentation: Evolving Decision Makin moderate complexity Goals: Goals X1 week 1. Supine-Sit independent 2. Sit-Supine independent 3. Sit-Stand independent 4. Stand-Sit independent with no AD 5. Bed-Chair independent with no AD 6. Chair-Bed independent with no AD 7. Independent gait on level surface with use of no AD for at least 300 feet without report of pain nor dyspnea 8. Independent stair negotiation while holding onto B rails for at least 2 steps without report of pain nor dyspnea 9. Independent with home exercise program 10. Good static and dynamic standing balance/tolerance Plan of Care/Treatment Plan: 1-2x/day, 7 days/week x 1 week. Plan of care has been reviewed with the LOGGING TRUCK DRIVER providing the service under Physical Therapy direction. Initiate Physical Therapy intervention for pain management as needed, strengthening, bed mobility, transfers, gait, stairs, balance training, and use of assistive device. -- Follow up appointment/session with PT/LOGGING TRUCK DRIVER to ensure safety with ambulation task performance without assistive device. DISCHARGE RECOMMENDATIONS: [] Home with no services 4- [X] Home with services. Patient will benefit from home health PT services in order to progress mobility level using least restrictive assistive ambulatory device, assess home safety, identify additional equipment needs, and establish a functional maintenance program that will increase ability of patient to remain at home. [] Home with outpatient PT [] [] SNF for continued rehabilitation [] [] [facility] [] [] SNF versus LTC based on ability to participate and progress [] TREATMENT CODE/TIME: 13177 x 20 minutes for 1 unit, 87643 x 18 minutes for 1 unit (14:40-15:18). Thank you for the opportunity to participate in the care of this patient. Ela Matta PT, DPT, CLT [facility] [place], [place]
[2023-11-01] MEDS: Enoxaparin 40 MG/0.4 ML SYR SC (17:50)
[2023-11-01 21:20] LABS: TSH (W/Ref FT4) 5.39 uIU/mL (0.36-3.74)
[2023-11-01 21:37] LABS: FREE T4 0.85 ng/dL (0.76-1.46)
[2023-11-01] MEDS: Normal Saline Flush 10 ML SYR IVP (23:16)
[2023-11-02 02:35] VITALS: BP 132/85; PULSE 91; RESP 16; TEMP 36.7; O2SAT 94
[2023-11-02 08:34] VITALS: BP 133/69; PULSE 93; RESP 15; TEMP 36.9; O2SAT 95
[2023-11-02] MEDS: Divalproex 500 MG TABEC PO (09:30)
--- NOTE | 2023-11-02 09:34 | PDOC.CMIN ---
Date of service: 11/02/23 Time of Service: 09:35 Care Management Initial Assmt Initial Assessment Reason for Hospitalization: seizure Functional Status/Living Situation Patient Presentation: Nelida was sitting up in a chair, fully dressed, waiting for her discharge paperwork when CM met with her. She stated she feels great and is anxious to get home. Her great granddaughter has a birthday alliance party today and Nikky wants to participate. Nikky came to the hospital because of a possible seizure. She had an echocardiogram, head CT and an MRI which seems to make the diagnosis of a seizure more likely. She will have an EEG scheduled as an outpatient. Town of Residence: [facility] Resides with: Alone Natural Supports: son ,daughter and [id number] all live with in 5 minuted of her. Employment Status: Retired Instrumental Activities of Daily Living (ADLs): Independent Medications Medication Management: No Issues/Barriers identified Physical Functioning/Mobility Assistive Device: none Advance Directives Advance Directives: Do you have an Advance Directive: Y 12/11/12 14:48 AD On File at [facility]: Y 12/11/12 14:43 Date Asked 11/01/23 11/01/23 10:39 AD Date Reviewed 02/23/23 02/23/23 18:03 COLST On File at [facility] COLST Date Scanned Code Status Resuscitation Status Full Code Portal Pt does not currently have a portal and education provided: No Insurance Coverage/Financial Issues Insurance: Medicare [place] supplement ACO Member: Yes Care Team Visit Care Team Role Provider Type Woody Puente NP Primary Care Provider NURSE PRACTITIONER InPatient Almas Costello Other Providers OTHER Zeferino Mancini MD Emergency Provider [facility] STAFF PHYSICIAN Michael Cullen MD Admit Provider [facility] STAFF PHYSICIAN Attending Provider Discharge Potential Discharge Needs: PCP F/U Appt Anticipated Barriers to Discharge: None Identified Patient/Family Education Needs: Review discharge instructions, discuss Ask Me Three Transportation: Private vehicle Plan: Nikky will be discharged home with no new services. She will follow up with her PCP and plan of care. An outpatient EEG will be scheduled with likely follow up with neurology. Nikky will transport with family via private vehicle. CM will continue to support discharge needs. PFSH All Active Problems Medication monitoring encounter (Acute) Aortic stenosis (Chronic) Episode of unresponsiveness (Acute) Enlarged thyroid gland (Acute) Encounter for annual physical exam (Acute) Xerostomia (Acute) Osteoporosis (Chronic) Hyperlipidemia (Acute) Gastroesophageal reflux disease (Chronic) Allergic rhinitis (Chronic) Medical History Urinary tract infection Toe erythema Left, 4th & 5th toes Surgical History History of cataract removal with insertion of prosthetic lens Status post breast biopsy Extraction of cataract 10/2014~B/L Biopsy of breast (~2004) Family History Mother , CHF at age 77. Heart disease Father , SUICIDE at age 77. Diabetes Neoplasm LUNG Sister No problems noted. Brother Mentally challenged Maternal Grandmother Neoplasm BREAST Son No problems noted. Daughter Uterine cancer Social History Smoking/Tobacco Use Status: Never Second Hand Exposure: Yes Smoking risk assessment performed?: Yes Alcohol Intake: current Alcohol Intake frequency: a few times a month Alcohol type: beer, wine and hard liquor Drug use: Never Substance use type: does not use Counseling given: No Counseling provided: none Adopted: No Caregiver/Support person: No Foster care: No Household members: none Housing: house Number of Children: 2 number of grandchildren: 4 Communication Needs: None Education Level: college Do you need help understanding health information?: Never current occupation: Retired Pets and animals: Yes Pets and animals: cat(s) Sexually active: No Do you think of yourself as: straight/heterosexual Current gender identity: female What is your relationship status?: How often do you talk on the phone with friends or family?: three or more times per week How often do you get together with friends or relatives?: three or more times per week How often do you attend restorationist or episcopalian services?: 4 or more times per year Do you belong to any clubs or organized social groups?: yes Panel score (0-1 are the most socially isolated patients): 3 What type of physical activity do you participate in: walking and weight lifting Duration: < 15 minutes/day Frequency: 5-6 times per week Brooke/Baptist: Holiness Special brooke needs: No Agree to transfusion: Yes Seatbelt use: always Helmet use: Yes Drive intox or ride w/intox experienced truck driver: No Working smoke detector in home: Yes Carbon monox detector in home: Yes Firearms in home: No Do you feel safe at home: Yes Do you feel safe in your relationship?: Yes Victim of physical abuse: No Victim of emotional abuse: No Victim of sexual abuse: No Would you like helpful sources: No SDOH(Care Management) Screening Will the Patient Participate in the Screening?: Yes Do you worry about having a steady place to live?: no Problems where you live: no known problems In the past 12 months, have you had to go without electric, gas, oil or water in your home?: no Have you or anyone in your house had to go without enough food to eat?: no Has lack of transportation kept you from medical appointments or from doing things needed for daily living?: no Has anyone in your support network made you feel unsafe for any reason?: no
[2023-11-02] MEDS: Multivitamin TAB 1 TAB PO (10:23)
--- NOTE | 2023-11-02 11:32 | W.PM.DS.N ---
Date of service: 11/02/23 Time of Service: 11:32 DS: Diagnosis Discharge Diagnosis (1) Episode of unresponsiveness: Status: Acute Asessment and Plan: patient had witnessed episode of transient decreased level of consciousness that lasted less than a minute, witnessed by her son and associated w/ generalized stiffness but not actual tonic/clonic seizures, and not associated w/ post ictal state although patient described some feeling of fuzziness in her head. She has another episode which was unwitnessed. Suspected ddx included near syncope/syncope vs seizure. CT head was negative for CVA, bleed or mass but showed chronic small vessle disease. Tele-neurology consult was obatined w/ Dr. Jelani Vega, who recommended overnight admission for observation, telemetry monitoring, neuro checks, seizure precautions and obtain MRI brain and EEG. Because she was admitted on Saturday afternoon, EEG was unavailable. 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 She has no arrhythmias overnight and no further episodes of decreased LOC. Initiation of anti-epileptic drugs was deferred pending results of her studies but when the MRI came back abnormal, Dr. Vega was recontacted to overread the MRI and discuss AED use. He agreed w/ radiologists diagnosie and recommended initiation of AED w/ depakote 500 mg loading and 250 mg bid. The patient initially refused the depakote 500 mg loading dose however on the day of her discharge she did take the loading dose and agreed to go on the maintenance dose of depakote 250 mg bid. She also had an echocardiogram to evaluate a crescendo/decrescendo murmur and was found to have moderate aortic stenosis. Patient will be dc home w/ Rx for depakote sustained release 250 mg bid and orders for EEG next week and valproic acid level next week. Patient will be referred to Dr. Cassidy Dodson for local neurology follow up and w/ Dr. Ramos for her aortic stenosis. (2) Mesial temporal sclerosis: Status: Chronic (3) Aortic stenosis: Status: Chronic (4) Seizure: Status: Suspected Discharge Plan Disposition Patient Disposition: Home Condition: Good Discharge Details Reason For Visit: Syncope Admit Date/Time: 11/01/23 13:21 Admit Provider: Michael Cullen Attending Provider: Michael Cullen Primary Care Provider: Woody Wright Home Meds and New Rx's Prescriptions: New divalproex [Depakote] 250 mg tablet,delayed release (DR/EC) 250 mg PO BID Qty: 60 1RF Continued cholecalciferol (vitamin D3) 1,000 unit capsule 1,000 unit PO DAILY calcium citrate-vitamin D3 1 EACH tablet 1 ea PO DAILY Patient Comments: 600mg CENTRUM SILVER TABLET 1 EACH tablet 1 ea PO DAILY Discharge Instructions Instructions: Seizures, Valproic Acid and Derivatives Additional Instructions: You were admitted to evaluate you for episodes of brief unresponsiveness associated w/ generalized stiffness in your limbs that had been preceded by vague feelings of sense of doom, bilateral tinnitus (ringing in the ears) and feelings of spaciness in your head. As these spells for fleeting lasting a few seconds, it is difficult to determine the exact etiology. It was suspected that you either were having non-convulsive seizures, probably temporal lobe seizures or were having near syncope. CT of the head was performed which showed decreased attenuation of the white matter of the brain that is consistent w/ aging and microvascular ischemic changes, i.e. atherosclerosis. but no strokes or tumors or bleeds. A tele-neurology consult was obtained w/ [facility] provider, Dr. Jelani Haque, who interviewed you and talked w/ your son who described your episodes. Dr. Haque recommended overnight admission for observation, telemetry monitoring for any cardiac arrhythmias and to proceed w/ getting an MRI of the brain and an EEG. Unfortunately an EEG could not be done prior to your discharge but will be scheduled as an outpatient. 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 This is an area of scar tissue that predisposes to seizures. Based on a follow up conversation w/ Dr. Haque, it was recommended that you be started on depakote 250 mg twice a day w/ a loading dose of 500 mg to be started prior to your discharge home. You should have a follow up with a local neurologist, Dr. Dodson within the next 2 to 4 weeks. Because of a heart murmur that was found on your examination, you had an echocardiogram (ultrasound of the heart) you were found to have moderate aortic stenosis (narrowing of the aortic valve of the heart). Nothing needs to be done immediately about this but you should have a follow up w/ a body team member to monitor this w/ follow up echocardiogram in a year. Avoid swimming, tub baths, driving, any dangerous sports or activities that can potentially lead to injuries in the event of sudden loss of consciousness including (but not limited to only) driving, motorcycle use, climbing up ladders and working on high spaces or cycling. Continue these precautions until you are cleared by your neurologist. Stand Alone Forms: Nursing Discharge Form Referrals: Woody Wright NP [Primary Care Provider] - (call the office for follow up in the next week) Marycruz Ramos MD [ [facility] STAFF PHYSICIAN] - (call office next week for follow up in the next month for follow up on aortic stenosis) Cassidy Dodson MD [ [facility] STAFF PHYSICIAN] - (call the office on Saturday to set up follow appointment in the next 2 to 4 weeks regarding mesial temporal lobe sclerosis and probable seizure disorder) Activity:: see above restrictions Equipment/Supplies:: No Equipment Needed Diet:: Normal Diet Discharge Orders Discharge Orders: Discharge Order (Routine); Ordered 11/02/23 Ordered By: Michael Cullen Other Ambulatory Orders: EEG(Regular) (Routine) Timeframe: 1 Week Facility: [facility] - Location: Respiratory Therapy Ordered By: Michael Cullen Valproic Acid (Routine) Timeframe: 1 Week Facility: [facility] - Location: Laboratory Outpatient - [facility] Ordered By: Michael Cullen Discharge Data Discharge Date/Time-TO BE ENTERED AT DEPARTURE: 11/02/23 12:13 DS: Summary Time Spent with Patient providing and/or coordinating discharge services: Greater than 30 minutes Specific discharge activities: Interview/exam of patient; review of discharge instructions, completion of prescriptions/discharge instructions; discussion w/ nursing and CM; documentation of hospital visit Status at Discharge Functional status at discharge: independent ambulation Overall status at discharge: patient is progressing back to baseline Mental Status: mental status grossly normal Speech and Movement: speech and movement normal Mood: congruent mood Affect: normal affect Quality:SDOH Health Related Social Needs: No Data to Display Exam Narrative Exam Narrative: Maryjo is sitting up in her chair eating breakfast she is alert and orient x 3 no acute distress she has had no tremors no seizures overnight. She is an anxious individual has a lot of questions which I went over with her as well as her family. She refused to take the Depakote last night because she did not have a chance to talk to me again about the results of my conversation with the [facility] neurologist. However she understands she needs to take a loading dose of Depakote 500 mg before she leaves here. She will go home on Depakote 250 mg twice a day and follow-up with a neurologist within the next month and see her primary care provider next week. Also explained to her and her family that she needs to follow-up with cardiology regarding her moderate aortic stenosis. Psych Mental Status: mental status grossly normal Speech and Movement: speech and movement normal Mood: congruent mood Affect: normal affect DS: Data Vitals/I&O Vitals and I&O: Vital Signs Temperature 36.9 C 11/02/23 08:34 Temperature Source Temporal Artery Scan 11/02/23 08:34 Pulse 93 H 11/02/23 08:34 Pulse Rhythm Regular 11/02/23 08:15 Pulse 85 11/01/23 13:31 Respiratory Rate 15 11/02/23 08:34 Respiratory Effort Normal, Non-Labored 11/02/23 08:15 Respiratory Depth Normal 11/02/23 08:15 Respiratory Pattern Normal 11/02/23 08:15 Blood Pressure 133/69 11/02/23 08:34 Blood Pressure Mean 103 11/01/23 13:31 Blood Pressure Position Sitting 11/01/23 10:41 Pulse Oximetry 95 11/02/23 08:34 Oxygen Delivery Method Room Air 11/02/23 08:34 Oxygen Flow Rate 0 11/02/23 08:34 Pain Level 0 11/02/23 08:34 Intake & Output 11/01/23 11/01/23 11/02/23 11:59 23:59 11:59 Intake Total 240 / 240 Output Total 400 / 400 Balance 240 / 240 -400 / -400 Weight 57.153 kg 57 kg Intake: Oral 240 / 240 Output: Urine 400 / 400 Other: Urine Color Yellow Urine Appearance Clear Clear Urine Odor None Stool Size Small Stool Characteristics Soft Voiding Methods Toilet Data Completed and Pending Labs on day of discharge: Labs from last 24 hours 11/01/23 11/01/23 20:22 11:13 Sodium 141 Potassium 3.8 Chloride 106 Carbon Dioxide 27.1 Anion Gap 7.9 BUN 12 Creatinine 0.8 Est GFR (CKD-EPI 2020) 72.16 Glucose 93 Calcium 9.0 Magnesium 1.9 Total Bilirubin 0.30 AST 20 ALT 24 Alkaline Phosphatase 85 Troponin I < 50 Total Protein 7.3 Albumin 3.7 TSH 5.39 H Free T4 0.85 PFSH All Active Problems (Updated 11/02/23 @ 15:03 by Michael Cullen MD) Medication monitoring encounter (Acute) Aortic stenosis (Chronic) Mesial temporal sclerosis (Chronic) Episode of unresponsiveness (Acute) Enlarged thyroid gland (Acute) Encounter for annual physical exam (Acute) Xerostomia (Acute) Osteoporosis (Chronic) Hyperlipidemia (Acute) Gastroesophageal reflux disease (Chronic) Allergic rhinitis (Chronic) Medical History Urinary tract infection Toe erythema Left, 4th & 5th toes Surgical History History of cataract removal with insertion of prosthetic lens Status post breast biopsy Extraction of cataract 10/2014~B/L Biopsy of breast (~2004) Family History Mother , CHF at age 77. Heart disease Father , SUICIDE at age 77. Diabetes Neoplasm LUNG Sister No problems noted. Brother Mentally challenged Maternal Grandmother Neoplasm BREAST Son No problems noted. Daughter Uterine cancer Social History Smoking/Tobacco Use Status: Never Second Hand Exposure: Yes Smoking risk assessment performed?: Yes Alcohol Intake: current Alcohol Intake frequency: a few times a month Alcohol type: beer, wine and hard liquor Drug use: Never Substance use type: does not use Counseling given: No Counseling provided: none Adopted: No Caregiver/Support person: No Foster care: No Household members: none Housing: house Number of Children: 2 number of grandchildren: 4 Communication Needs: None Education Level: college Do you need help understanding health information?: Never current occupation: Retired Pets and animals: Yes Pets and animals: cat(s) Sexually active: No Do you think of yourself as: straight/heterosexual Current gender identity: female What is your relationship status?: How often do you talk on the phone with friends or family?: three or more times per week How often do you get together with friends or relatives?: three or more times per week How often do you attend shinto or protestant services?: 4 or more times per year Do you belong to any clubs or organized social groups?: yes Panel score (0-1 are the most socially isolated patients): 3 What type of physical activity do you participate in: walking and weight lifting Duration: < 15 minutes/day Frequency: 5-6 times per week Brooke/Scientology: Orthodox Special brooke needs: No Agree to transfusion: Yes Seatbelt use: always Helmet use: Yes Drive intox or ride w/intox miniature train driver: No Working smoke detector in home: Yes Carbon monox detector in home: Yes Firearms in home: No Do you feel safe at home: Yes Do you feel safe in your relationship?: Yes Victim of physical abuse: No Victim of emotional abuse: No Victim of sexual abuse: No Would you like helpful sources: No Time Spent with Patient Time Spent with Patient: <45 minutes Time was spent: preparing to see the patient(eg.review tests), ordering medications,tests, procedures, referring, communicating with other health home health aide caregiver, indepentently interpreting results, counseling the patient and care coordination
--- NOTE | 2023-11-02 16:27 | PDOC.CMDIS ---
Date of service: 11/02/23 Time of Service: 16:27 LACE Index Scoring Tool Questions: Length of Stay (in days): 1 Was the patient admitted via the E.D.?: Yes E.D. Visits: 1 Answers: Total Score: 5 Risk of Readmission: Low Risk Care Management Discharge Plan Reason for Hospitalization: seizure Discharge Plan: Nikky will be discharged home with no new services. She will follow up with her PCP and plan of care. An outpatient EEG will be scheduled with likely follow up with neurology. Nikky will transport with family via private vehicle. . Patient/Family Education Needs: Review discharge instructions, discuss Ask Me Three SDOH Health Related Social Needs: No Data to Display
== END 2023-11-02 12:13 | disposition home or self-care (01) ==
LOC: ER 13:23 → MS 14:33
PROVIDERS: Admitting Provider Internal Medicine; Emergency Provider Emergency Medicine; PCP Nurse Practitioner Family; Visit Provider Internal Medicine
DX: R40.4 Transient alteration of awareness (principal); I35.0 Nonrheumatic aortic (valve) stenosis; H93.13 Tinnitus, bilateral; R90.89 Other abnormal findings on diagnostic imaging of central nervous system; E04.9 Nontoxic goiter, unspecified; J30.9 Allergic rhinitis, unspecified; E78.5 Hyperlipidemia, unspecified; M81.0 Age-related osteoporosis without current pathological fracture; K21.9 Gastro-esophageal reflux disease without esophagitis; K11.7 Disturbances of salivary secretion
CPT/HCPCS: 00123; 80053; 93005; 93306; 96372; 97163; 97530; 99285; J1650; 70450; 70551; 71045; 83735; 84439; 84443; 84484; 85025; 93010; 99222; 99238; G0378

== ENCOUNTER 2023-11-18 03:58 | Outpatient (CLI) | payer MEDICARE, SELFPAY ==
[2023-11-18 15:55] LABS: VALPROIC ACID 74.1 ug/mL
== END 2023-11-18 03:59 | disposition home or self-care (01) ==
LOC: LBO 03:58
PROVIDERS: PCP Nurse Practitioner Family; Visit Provider Internal Medicine
DX: Z51.81 Encounter for therapeutic drug level monitoring (principal)
CPT/HCPCS: 36415; 80164

== ENCOUNTER 2023-11-19 05:00 | Outpatient (CLI) | payer MEDICARE, SELFPAY ==
--- NOTE | 2023-11-20 22:35 | PDOC.EEG_ITS ---
Neurology EEG EEG: [facility] Department of Neurology EEG REPORT Date of Recordin11/19/23 Interpreting Physician: Dr. Cassidy Dodson PCP/Referring Provider: Woody Puente NP/Dr. Cullen Reason for study: Ms. Courtney is an 83 year-old who had a recent episode concerning for seizure. Current Medications: Home Medications ?Medication ?Instructions ?Recorded ?Confirmed ?Type Centrum Silver Tablet 1 ea PO DAILY 01/03/13 11/12/23 History calcium citrate 315 mg-vitamin D3 1 ea PO DAILY 01/03/13 11/12/23 History 5 mcg (200 unit) tablet cholecalciferol (vitamin D3) 25 1,000 unit PO DAILY 02/20/18 11/12/23 History mcg (1,000 unit) capsule divalproex 250 mg tablet,delayed 250 mg PO BID #60 tabs 11/02/23 11/12/23 Rx release (Depakote) METHODS: A 21 channel digitized electroencephalogram was performed in the [facility]. The 10/20 international system of electrode placement was used and bipolar and referential electrode montages were recorded. In addition to EEG the patient was monitored for EKG and lateral/vertical eye movements. Activation procedures of photic stimulation and hyperventilation were performed if applicable. Video was used during activation procedures and during events where applicable. The duration of the recording was 30 minutes. DESCRIPTION OF EEG: The patient was noted to be awake only during the recording. During maximal wakefulness a 9-Hz posterior background rhythm was present which was well-m odulated, symmetrical, reactive to eye opening, and of moderate voltage. With eye opening the background activity changed to a low voltage mixture of alpha, beta, and occasional theta range frequencies. Faster frequencies were present in the bilateral anterior head regions. There was a normal anterior-posterior voltage gradient. No drowsiness or stage II sleep was recorded. Activating Procedures: Photic stimulation was performed which produced a symmetrical posterior driving response at various flash frequencies. Hyperventilation was performed with moderate effort and produced no physiological slowing of the background. EKG: EKG revealed normal sinus rhythm. INTERPRETATION: This EEG is normal during the awake state as well as during photic stimulation and hyperventilation. PRIOR EEG: none CLINICAL CORRELATION: No focal regions of cerebral dysfunction or epileptiform activity was present. No sleep was recorded during the study which reduces the sensitivity of the exam. If seizure remains a part of the differential, consider a repeat sleep- deprived EEG or overnight ambulatory EEG. Epilepsy remains a clinical diagnosis and a normal EEG does not rule out epilepsy. Clinical correlation is advised. Cassidy Dodson MD Date of service: 11/19/23
== END 2023-11-19 05:01 | disposition home or self-care (01) ==
LOC: RT 05:00
PROVIDERS: PCP Nurse Practitioner Family; Visit Provider Internal Medicine
DX: G93.81 Temporal sclerosis (principal)
CPT/HCPCS: 95816

== ENCOUNTER 2023-12-13 12:48 | Outpatient (CLI) | payer MEDICARE, SELFPAY ==
--- NOTE | 2023-12-13 12:45 | RT.EKG_ITS ---
APPROVED REPORT Exam: Resting ECG Reason for Exam: baseline Patient Location: O HR:99 bpm ECG Measurements Heart Rate 99 AXIS WI 213 P -25 QRSd 71 QRS -8 QT 341 T 13 QTc 438 Conclusion Sinus rhythm...normal P axis, V-rate 50- 99 Borderline prolonged WI interval...WI >207, V-rate 91-120 Otherwise normal ECG
== END 2023-12-13 12:49 | disposition home or self-care (01) ==
LOC: DI.CARD 12:50
PROVIDERS: PCP Nurse Practitioner Family; Referring Provider Nurse Practitioner Family; Visit Provider Internal Medicine Cardiovascular Disease
DX: I35.0 Nonrheumatic aortic (valve) stenosis (principal)
CPT/HCPCS: 93010

== ENCOUNTER → 2023-12-13 12:48 | Outpatient (BNVA) | payer MEDICARE, SELFPAY | PROVIDERS: PCP Nurse Practitioner Family; Referring Provider Nurse Practitioner Family; Visit Provider Internal Medicine Cardiovascular Disease | DX: I44.0 Atrioventricular block, first degree (principal); I35.0 Nonrheumatic aortic (valve) stenosis | CPT/HCPCS: 93005; 99214 ==

== ENCOUNTER → 2023-12-25 14:49 | Outpatient (BNVA) | payer MEDICARE, SELFPAY | PROVIDERS: PCP Nurse Practitioner Family; Referring Provider Nurse Practitioner Family; Visit Provider Psychiatry & Neurology Neurology | DX: G93.81 Temporal sclerosis (principal); R40.4 Transient alteration of awareness | CPT/HCPCS: 99215; G2212 ==

== ENCOUNTER 2024-03-03 09:22 | Outpatient (CLI) | payer MEDICARE, SELFPAY ==
--- OUTSIDE RECORDS SUMMARY | 2024-03-03 09:29 | XMS_ITS | Encounter Summary ---
Author Organization [facility] [place] [address] Care Team Providers Care Laborer Car Barn Name Role Phone Woody Puente TOLU Primary Care Provider [phone] Encounter Details Date Type Department Care Team (Late st Contact Info) Description 12/03/2023 11:15 AM EDT Office Visit Dermatology at [place] [address] [place] [id number] Alicja Goss MD [facility] [place] [place] [address] Skin tag; SK (seborrheic keratosis); AK (actinic keratosis); Seborrheic dermatitis; Inflamed seborrheic keratosis Social History Tobacco Use Types Packs/Day Years Used Date Smoking Tobacco: Never Smokeless Tobacco: Never Sex and Gender Information Value Date Recorded Sex Assigned at Not on file Gender Identity Not on file Sexual Orientation Not on file documented as of this encounter Progress Notes * Alicja Goss MD - 12/03/2023 11:15 AM EDT Images from the original note were not included. DEPARTMENT OF DERMATOLOGY Medical Dermatology Clinic Provider: ALICJA GOSS MD Patient's preferred name [place] Preferred contact method for results [x]Phone []myD-H []Letter Detailed phone message OK? Yes Are there any other people with whom we may discuss your care? 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 Patient returns to clinic today for a full skin exam with the following concerns: - she wants to recheck her nose which was frozen with LN2 last year. - right ear has a scaly spot. - a spot on her left inframammary that she just wants to know what it is. Last visit at Dermatology: 11/20/2022 Last visit with this provider: 11/20/2022 Medications: Reviewed in eD-H Allergies: Reviewed in eD-H Skin Examination: Full skin examination: Patient asked to undress to their comfort level. Verbalized that the provider???s preference is that the patient remove all clothing and that the provider will not examine areas patient elects to keep covered. Patient elects to keep underwear on and have the following examined: scalp, hair, face, ears, neck, chest, axillae, abdomen, back, and upper and lower extremities. Genitalia and buttocks were not examined. Assessment/Plan A. Actinic Keratoses - Ill-defined gritty papules on the nasal dorsum x2, right lower vermilion lipx1, left nasal tip x1, left medial canthus x1. - Explained premalignant potential of these lesions. - Discussed treatment with cryotherapy. Patient elects to proceed with cryotherapy today. - Instructed patient to return to clinic for re-evaluation if lesion(s) does not resolve as expected with this treatment. Procedure: Destruction of lesion(s) with cryotherapy (LN2). Location(s): As noted above. Number: 5 Discussed procedure and expectations, including risks and benefits. Verbal consent obtained. Treated with LN2. There were no complications; Patient tolerated the procedure well. Post-procedure expectations and wound care reviewed. B. Inflamed Seborrheic Keratosis - Inflamed, stuck on, waxy papule on the left neck x1. - Discussed benign nature of lesion(s) and provided reassurance. - Due to irritation present on today's exam and history of symptoms, discussed removal with cryotherapy. - Patient elects to proceed with cryotherapy today. Procedure: Destruction of lesion(s) with cryotherapy (LN2). Location(s): As noted above Number: 1 Discussed procedure and expectations including risks and benefits. Verbal consent obtained. Treatedwith LN2. There were no complications; Patient tolerated the procedure well. Post-procedure expectations and wound care were reviewed. C. Seborrheic Dermatitis - Diffuse greasy, loosely adherent scale throughout the scalp. - Discussed etiology and treatment options. - Recommended an OTC anti-dandruff shampoo, such as Head and Shoulders or Selsun Blue. Lather on scalp, leave on for 3-5 minutes, then rinse out. D. Skin Tag - Sessile, flesh-colored papule on the left inframammary. - Discussed benign nature of lesion and provided reassurance. No treatment necessary at this time. E. Seborrheic Keratoses - Stuck on, waxy papules on the trunk and extremities, including on the left neck, and right preauricular. - Discussed benign nature of lesions and provided reassurance. No treatment necessary at this time. Other: N/A RTC: 2 years for FSE []Note routed to foreclosure specialist [x]Recall placed in scheduling system []Appointment scheduled at checkout Scribe attestation: MATILDE Paredes has performed the documentation for this encounter in thepresence of and acting as a scribe for ALICJA GOSS MD. I performed the above scribed service and agree with the accuracy of the documentation in this encounter. Reviewed and signed by: ALICJA GOSS MD Dermatology [facility] documented in this encounter Plan of Treatment Not on file documented as of this encounter Visit Diagnoses Diagnosis Skin tag Unspecified hypertrophic and atrophic condition of skin SK (seborrheic keratosis) Other seborrheic keratosis AK (actinic keratosis) Actinic keratosis Seborrheic dermatitis Seborrheic dermatitis, unspecified Inflamed seborrheic keratosis documented in this encounter Care Teams Laborer Car Barn Relationship Specialty Start Date End Date Woody Puente DNP [address] [place] [id number] PCP - General Family Medicine 05/09/23 documented as of this encounter
--- OUTSIDE RECORDS SUMMARY | 2024-03-03 09:29 | XMS_ITS | Encounter Summary ---
Author Organization [facility] [place] [address] [place] [address] Care Team Providers Care Fisher Terrapin Name Role Phone Karine Garza MD Primary Care Provider [phone] Encounter Details Date Type Department Care Team (Late st Contact Info) Description 10/12/2011 [place] [address] Melonie Hutchison MD [facility] [place] [address] Abnormal findings on diagnostic imaging of breast (Primary Dx) Social History Tobacco Use Types Packs/Day Years Used Date Smoking Tobacco: Never Assessed Sex and Gender Information Value Date Recorded Sex Assigned at Not on file Gender Identity Not on file Sexual Orientation Not on file documented as of this encounter Plan of Treatment Not on file documented as of this encounter Results * Mammo stereotactic (10/16/2011 12:13 PM EDT) Anatomical Region Laterality Modality Breast N/A Mammography 10/16/2011 12:1 3 PM EDT Impressions 10/17/2011 11:17 AM EDT Impression: concordant Recommendation: F/U mammgraphy in one year. As discussed with Mrs. Courtney by Dr. Fox on 10/17/11. ?? I performed the procedure without a resident. Narrative 10/17/2011 11:17 AM EDT VACUUM ASSISTED STEREOTACTIC BIOPSY OF THE RIGHT BREAST ON 10/16/11: Informed consent was obtained, sterile technique and 1% lidocaine used for local anesthesia and stereotactic guidance used throughout the procedure. Clinical indication: Right breast 11mm cluster of calcifications in the deep central breast at 1200, 8cm from the nipple. An AccutFit Lorad Stage drape was used to cover the track of the biopsy device. ?? 9-gauge Eviva Regular device 6 core biopsy specimens obtained. The specimen was X-rayed; the calcifications are present on specimen digital X-ray. A SMark Eviva-Stereo 2S-13 Bowtie marker clip was placed. Cranio-caudal and lateral digital mammography performed to determine biopsy marker placement, which was shown to be less than 1cm from the biopsy site in superior direction. Satisfactory sampling was obtained. There were no procedural complications. Imaging diagnosis: Fibroadenomatous change versus FCD versus DCIS. Pathologic diagnosis: Fibroadenomatous change Procedure Note Vishnu Fox MD - 10/17/2011 VACUUM ASSISTED STEREOTACTIC BIOPSY OF THE RIGHT BREAST ON 10/16/11: Informed consent was obtained, sterile technique and 1% lidocaine used for local anesthesia and stereotactic guidance used throughout theprocedure. Clinical indication: Right breast 11mm cluster of calcifications in thedeep central breast at 1200, 8cm from the nipple. An AccutFit Lorad Stage drape was used to cover the track of the biopsydevice. 9-gauge Eviva Regular device 6 core biopsy specimens obtained. The specimen was X-rayed; the calcifications are present on specimendigital X-ray. A SMark Eviva-Stereo 2S-13 Bowtie marker clip was placed. Cranio-caudaland lateral digital mammography performed to determine biopsy markerplacement, which was shown to be less than 1cm from the biopsy site in superiordirection. Satisfactory sampling was obtained. There were no procedural complications. Imaging diagnosis: Fibroadenomatous change versus FCD versus DCIS. Pathologic diagnosis: Fibroadenomatous change IMPRESSION Impression: concordant Recommendation: F/U mammgraphy in one year. As discussed with Mrs. James Dr. Fox on 10/17/11. I performed the procedure without a resident. Melonie Hutchison MD IMG MAMMO ORD ERABLES * Mammo specimen (10/16/2011 12:12 PM EDT) Anatomical Region Laterality Modality Breast N/A Mammography 10/16/2011 12:1 2 PM EDT Impressions 10/17/2011 11:17 AM EDT Impression: concordant Recommendation: F/U mammgraphy in one year. As discussed with Mrs. Courtney by Dr. Fox on 10/17/11. ?? I performed the procedure without a resident. Narrative 10/17/2011 11:17 AM EDT VACUUM ASSISTED STEREOTACTIC BIOPSY OF THE RIGHT BREAST ON 10/16/11: Informed consent was obtained, sterile technique and 1% lidocaine used for local anesthesia and stereotactic guidance used throughout the procedure. Clinical indication: Right breast 11mm cluster of calcifications in the deep central breast at 1200, 8cm from the nipple. An AccutFit Lorad Stage drape was used to cover the track of the biopsy device. ?? 9-gauge Eviva Regular device 6 core biopsy specimens obtained. The specimen was X-rayed; the calcifications are present on specimen digital X-ray. A SMark Eviva-Stereo 2S-13 Bowtie marker clip was placed. Cranio-caudal and lateral digital mammography performed to determine biopsy marker placement, which was shown to be less than 1cm from the biopsy site in superior direction. Satisfactory sampling was obtained. There were no procedural complications. Imaging diagnosis: Fibroadenomatous change versus FCD versus DCIS. Pathologic diagnosis: Fibroadenomatous change Procedure Note Vishnu Fox MD - 10/17/2011 VACUUM ASSISTED STEREOTACTIC BIOPSY OF THE RIGHT BREAST ON 10/16/11: Informed consent was obtained, sterile technique and 1% lidocaine used for local anesthesia and stereotactic guidance used throughout theprocedure. Clinical indication: Right breast 11mm cluster of calcifications in thedeep central breast at 1200, 8cm from the nipple. An AccutFit Lorad Stage drape was used to cover the track of the biopsydevice. 9-gauge Eviva Regular device 6 core biopsy specimens obtained. The specimen was X-rayed; the calcifications are present on specimendigital X-ray. A SMark Eviva-Stereo 2S-13 Bowtie marker clip was placed. Cranio-caudaland lateral digital mammography performed to determine biopsy markerplacement, which was shown to be less than 1cm from the biopsy site in superiordirection. Satisfactory sampling was obtained. There were no procedural complications. Imaging diagnosis: Fibroadenomatous change versus FCD versus DCIS. Pathologic diagnosis: Fibroadenomatous change IMPRESSION Impression: concordant Recommendation: F/U mammgraphy in one year. As discussed with Mrs. Courtneyby Dr. Fox on 10/17/11. I performed the procedure without a resident. Melonie Hutchison MD IMG MAMMO ORD ERABLES * Mammo direct digital unilateral (10/16/2011 12:12 PM EDT) Anatomical Region Laterality Modality Breast N/A Mammography 10/16/2011 12:1 2 PM EDT Impressions 10/17/2011 11:17 AM EDT Impression: concordant Recommendation: F/U mammgraphy in one year. As discussed with Mrs. Courtney by Dr. Fox on 10/17/11. ?? I performed the procedure without a resident. Narrative 10/17/2011 11:17 AM EDT VACUUM ASSISTED STEREOTACTIC BIOPSY OF THE RIGHT BREAST ON 10/16/11: Informed consent was obtained, sterile technique and 1% lidocaine used for local anesthesia and stereotactic guidance used throughout the procedure. Clinical indication: Right breast 11mm cluster of calcifications in the deep central breast at 1200, 8cm from the nipple. An AccutFit Lorad Stage drape was used to cover the track of the biopsy device. ?? 9-gauge Eviva Regular device 6 core biopsy specimens obtained. The specimen was X-rayed; the calcifications are present on specimen digital X-ray. A Vascular [employer]rk Eviva-Stereo 2S-13 Bowtie marker clip was placed. Cranio-caudal and lateral digital mammography performed to determine biopsy marker placement, which was shown to be less than 1cm from the biopsy site in superior direction. Satisfactory sampling was obtained. There were no procedural complications. Imaging diagnosis: Fibroadenomatous change versus FCD versus DCIS. Pathologic diagnosis: Fibroadenomatous change Procedure Note Vishnu Fox MD - 10/17/2011 VACUUM ASSISTED STEREOTACTIC BIOPSY OF THE RIGHT BREAST ON 10/16/11: Informed consent was obtained, sterile technique and 1% lidocaine used for local anesthesia and stereotactic guidance used throughout theprocedure. Clinical indication: Right breast 11mm cluster of calcifications in thedeep central breast at 1200, 8cm from the nipple. An AccutFit Lorad Stage drape was used to cover the track of the biopsydevice. 9-gauge Eviva Regular device 6 core biopsy specimens obtained. The specimen was X-rayed; the calcifications are present on specimendigital X-ray. A SMark Eviva-Stereo 2S-13 Bowtie marker clip was placed. Cranio-caudaland lateral digital mammography performed to determine biopsy markerplacement, which was shown to be less than 1cm from the biopsy site in superiordirection. Satisfactory sampling was obtained. There were no procedural complications. Imaging diagnosis: Fibroadenomatous change versus FCD versus DCIS. Pathologic diagnosis: Fibroadenomatous change IMPRESSION Impression: concordant Recommendation: F/U mammgraphy in one year. As discussed with Mrs. James Dr. Fox on 10/17/11. I performed the procedure without a resident. Melonie Hutchison MD IMG MAMMO ORD ERABLES documented in this encounter Visit Diagnoses Diagnosis Abnormal findings on diagnostic imaging of breast- Primary Other (abnormal) findings on radiological examination of breast Abnormal findings on diagnostic imaging of breast Other (abnormal) findings on radiological examination of breast Abnormal findings on diagnostic imaging of breast Other (abnormal) findings on radiological examination of breast Abnormal findings on diagnostic imaging of breast Other (abnormal) findings on radiological examination of breast documented in this encounter Care Teams Fisher Terrapin Relationship Specialty Start Date End Date Karine Garza MD [address] [place] [address] PCP - General 03/28/10 11/20/17 documented as of this encounter
--- OUTSIDE RECORDS SUMMARY | 2024-03-03 09:29 | XMS_ITS | Encounter Summary ---
Author Organization [facility] [place] [address] Care Team Providers Care Sap Technical Architect Name Role Phone Karine Garza MD Primary Care Provider [phone] Encounter Details Date Type Department Care Team (Late st Contact Info) Description 10/06/2010 9:11 AM EDT - 10/06/2010 11:59 PM EDT Hospital Encounter XRay at [facility] [address] [place] [address] Social History Tobacco Use Types Packs/Day Years Used Date Smoking Tobacco: Never Assessed Sex and Gender Information Value Date Recorded Sex Assigned at Not on file Gender Identity Not on file Sexual Orientation Not on file documented as of this encounter Medications at Time of Discharge Medication Sig Dispensed Refills Start Date End Date [facility] Free Text Med - Aspirin 02/17/2009 alendronate (FOSAMAX) 70 mg tablet 2008 MULTIVITAMINS W-MINERALS/LUT (CENTRUM SILVER ORAL) 02/17/2009 Docusate Sodium 100 mg Tab 02/17/2009 [facility]IS Free Text Med - Calcium 600 with Vitamin D 02/17/2009 11/21/2017 documented as of this encounter Plan of Treatment Not on file documented as of this encounter Procedures Procedure Name Priority Date/Time Associated Diagnosis Comments DXA CENTRAL SPINE, HIP, AND/OR WHOLE BODY (GENERIC) Routine 10/06/2010 9:50 AM EDT documented in this encounter Results * DEXA CENTRAL-SPINE, HIP, AND/OR WHOLE BODY (10/06/2010 9:50 AM EDT) Anatomical Region Laterality Modality C-spine, Hip N/A Radiographic Becca ging 10/06/2010 9:50 AM EDT Impressions 10/10/2010 3:55 PM EDT IMPRESSION: 1. ??When compared to the patient's most recent previous study from 2008, there is a small measured increase in bone density at the lumbar spine. ?? 2. ??Osteoporosis by WHO criteria. ESTIMATING FRACTURE RISK: ?? The relationship between bone mineral density (BMD) and risk of fracture is well established. As BMD decreases, risk increases. Quantifying risk is difficult and is usually limited to estimation of the relative risk - a term which may have limited value when trying to discuss an individual's risk. Estimating the absolute risk for a patient requires an understanding of the incidence rate in a given population and consideration of multiple, partially independent, risk factors in addition to BMD. ?? The World Health Organization (WHO) has developed a fracture risk prediction tool that calculates a ten-year risk of major osteoporotic fracture based on femoral neck bone density measurements and nine clinical risk factors for individuals who have not been treated for osteoporosis. This is available through an interactive web-based interface (http://www.shef.ac.uk/FRAX/) and can be used to estimate a given patient's absolute risk of major osteoporotic fracture or hip fracture over the next 10 years. These estimates may prove useful when discussing risk with a patient. It is important, however, to understand the tool's limitations and how a given individual's risk might differ from the tool's estimate. The tool does not take into account the dose-response associated with most risk factors. ??For example, the significant increase in risk associated with multiple prior fractures compared to a single prior fracture is not taken into account. Similarly, the location of a previous fracture, the amount of glucocorticoids and number of cigarettes smoked are not considered. These limitations are discussed in a Frequently Asked Questions section of the FRAX website which you are encouraged to review. ?? DEXA data sheets with BMD measurements and plots are available in CIS under Radiology Images. Paper copies will be sent to providers without CIS access. If you have received this report without the data sheet and do not have access to CIS, please contact Radiology Lift Supervisor at [phone] Saturday thru Saturday 8am-4pm. Narrative 10/10/2010 3:55 PM EDT DEXA, 10/06/10: CLINICAL HISTORY: ??A 70 -year-old woman with onset of menopause at age 51. She has a history of treatment with Evista, and is currently receiving alendronate. ?? TECHNIQUE: ??Measurements were acquired at the lumbar spine and left hip. COMPARISON: ??The total hip and total spine measurements are compared to 2008, 2004, and 1997. ?? FINDINGS: ??At the hip, there has been no change since 2008. The current measurement remains 6% lower than the baseline 1997 exam. The spine measurement has actually increased by 4.4% since 2008, and the current measurement is not significantly changed when compared to the baseline examination. The patient's lowest measurement at a diagnostic of region of interest is a T-score of -3.2 at the femoral neck. This measurement is diagnostic of osteoporosis by WHO criteria. ?? Procedure Note Mick Faria MD - 10/10/2010 DEXA, 10/06/10: CLINICAL HISTORY: A 70 -year-old woman with onset of menopause at age 51.She has a history of treatment with Evista, and is currently receivingalendronate. TECHNIQUE: Measurements were acquired at the lumbar spine and left hip. COMPARISON: The total hip and total spine measurements are compared [id number], 2004, and 1997. FINDINGS: At the hip, there has been no change since 2008. The current measurement remains 6% lower than the baseline 1997 exam. The spinemeasurement has actually increased by 4.4% since 2008, and the current measurement isnot significantly changed when compared to the baseline examination. Thepatient's lowest measurement at a diagnostic of region of interest is a T-score of-3.2 at the femoral neck. This measurement is diagnostic of osteoporosis by WHO criteria. IMPRESSION IMPRESSION: 1. When compared to the patient's most recent previous study from 2008,there is a small measured increase in bone density at the lumbar spine. 2. Osteoporosis by WHO criteria. ESTIMATING FRACTURE RISK: The relationship between bone mineral density (BMD) and risk of fractureis well established. As BMD decreases, risk increases. Quantifying risk is difficult and is usually limited to estimation of the relative risk - aterm which may have limited value when trying to discuss an individual's risk. Estimating the absolute risk for a patient requires an understanding ofthe incidence rate in a given population and consideration of multiple,partially independent, risk factors in addition to BMD. The World Health Organization (WHO) has developed a fracture riskprediction tool that calculates a ten-year risk of major osteoporotic fracture basedon femoral neck bone density measurements and nine clinical risk factors for individuals who have not been treated for osteoporosis. This is available through an interactive web-based interface (http://www.shef.ac.uk/FRAX/)and can be used to estimate a given patient's absolute risk of majorosteoporotic fracture or hip fracture over the next 10 years. These estimates may prove useful when discussing risk with a patient. It is important, however, to understand the tool's limitations and how a given individual's risk might differ from the tool's estimate. The tool does not take into account the dose-response associated with most risk factors. For example, thesignificant increase in risk associated with multiple prior fractures compared to asingle prior fracture is not taken into account. Similarly, the location of aprevious fracture, the amount of glucocorticoids and number of cigarettes smokedare not considered. These limitations are discussed in a Frequently AskedQuestions section of the FRAX website which you are encouraged to review. DEXA data sheets with BMD measurements and plots are available in CIS under Radiology Images. Paper copies will be sent to providers without CIS access. If you have received this report without the data sheet and do not have access to CIS, please contact Radiology Lift Supervisor at [phone] Saturday thru Saturday 8am-4pm. Karine Garza MD IMG DEXA ORDERABLES documented in this encounter Visit Diagnoses Not on filedocumented in this encounter Care Teams Sap Technical Architect Relationship Specialty Start Date End Date Karine Garza MD [address] [place] [address] PCP - General 03/28/10 11/20/17 documented as of this encounter
--- OUTSIDE RECORDS SUMMARY | 2024-03-03 09:29 | XMS_ITS | Encounter Summary ---
Author Organization [facility] [place] [address] Care Team Providers Care Healthcare Consulting Manager Name Role Phone Karine Garza MD Primary Care Provider [phone] Encounter Details Date Type Department Care Team (Late st Contact Info) Description 10/06/2010 Orders Only [facility] [address] [place] [address] Melonie Hutchison MD [facility] [place] [address] Abnormal mammogram, unspecified (Primary Dx) Social History Tobacco Use Types Packs/Day Years Used Date Smoking Tobacco: Never Assessed Sex and Gender Information Value Date Recorded Sex Assigned at Not on file Gender Identity Not on file Sexual Orientation Not on file documented as of this encounter Plan of Treatment Not on file documented as of this encounter Visit Diagnoses Diagnosis Abnormal mammogram, unspecified- Primary documented in this encounter Care Teams Healthcare Consulting Manager Relationship Specialty Start Date End Date Karine Garza MD [address] [place], [place] [id number] PCP - General 03/28/10 11/20/17 documented as of this encounter
--- OUTSIDE RECORDS SUMMARY | 2024-03-03 09:29 | XMS_ITS | Encounter Summary ---
Author Organization [facility] [place] [address] Care Team Providers Care Physical Therapy Asst Name Role Phone Karine Garza MD Primary Care Provider [phone] Encounter Details Date Type Department Care Team (Latest Contact Info) Description 12/02/2012 9:19 AM EDT - 12/02/2012 11:59 PM EDT Hospital Encounter XRay at [facility] [address] [place] [id number] CLINIC, Karine Delarosa MD [address] [place] [address] Discharge Disposition: Home Social History Tobacco Use Types Packs/Day Years Used Date Smoking Tobacco: Never Sex and Gender Information Value [...] SPINE, HIP, AND/OR WHOLE BODY (GENERIC) Routine 12/02/2012 10:00 AM EDT documented in this encounter Results * Dexa central-spine, hip, and/or whole body (12/02/2012 10:00 AM EDT) Anatomical Region Laterality Modality C-spine, Hip N/A Radiographic Becca ging 12/02/2012 10:0 0 AM EDT Narrative 12/03/2012 9:54 AM EDT Examination DXA CENTRAL-SPINE,HIP, AND/OR WHOLE BODY Clinical History POST MENOPAUSAL OSTEPOROSIS SCREENING; LAST DEXA 10/06/10 Technique Scans were acquired at the lumbar spine, left hip, . Findings Lowest T-score at a diagnostic region of interest: T-score: -3.3,SRI: Lumbar spine, WHO diagnosis: Osteoporosis ........Comparison......... Recent scan: 2010, Baseline scan: 1997 Total Hip: Compared to the most recent scan, no significant chain. ?? Compared to the baseline scan, 5.8 % decrease. ?? Total spine: Compared to the most recent scan, no significant change. Compared to the baseline scan, 4.7 % decrease. ?? Impression The measurements fulfill the WHO classification for osteoporosis and they are unchanged since 2010. ?? _ Estimating Fracture Risk: The relationship between bone mineral density (BMD) [...] associated with most risk factors. For example, the significant increase in risk associated [...] BMD measurements and plots are available in [employer] under the imaging tab. Paper copies will be sent to providers without [employer] access. If you have received this report without the data sheet and do not have access to [employer] [facility] [employer], please contact Radiology Cafe Operator at [phone] Saturday thru Saturday 8am-4pm. Procedure Note Ankita French MD - 12/03/2012 Examination DXA CENTRAL-SPINE,HIP, AND/OR WHOLE BODY Clinical History POST MENOPAUSAL OSTEPOROSIS SCREENING; LAST DEXA 10/06/10 Technique Scans were acquired at the lumbar spine, left hip, . Findings Lowest T-score at a diagnostic region of interest: T-score: -3.3,SRI: Lumbar spine, WHO diagnosis: Osteoporosis ........Comparison......... Recent scan: 2010, Baseline scan: 1997 Total Hip: Compared to the most recent scan, no significant chain. Compared to the baseline scan, 5.8 % decrease. Total spine: Compared to the most recent scan, no significant change. Compared to the baseline scan, 4.7 % decrease. Impression The measurements fulfill the WHO classification for osteoporosis and theyare unchanged since 2010. _ Estimating Fracture Risk: The relationship between bone mineral density (BMD) [...] BMD measurements and plots are available in E-DHunder the imaging tab. Paper copies will be sent to providers without E-DHaccess. If you have received this report without the data sheet and do not haveaccess to E-DH, please contact Radiology Cafe Operator at [phone] Saturdaythru Saturday 8am-4pm. Karine Garza MD IMG DEXA ORDERABLES documented in this encounter Visit Diagnoses Not on filedocumented in this encounter Care Teams Physical Therapy Asst Relationship Specialty Start Date End Date Karine Garza MD [address] [place] [address] PCP - General 03/28/10 11/20/17 documented as of this encounter
--- OUTSIDE RECORDS SUMMARY | 2024-03-03 09:29 | XMS_ITS | Encounter Summary ---
Author Organization [facility] [place] [address] Care Team Providers Care Garage Supervisor Name Role Phone Unknown Primary Care Provider Unavailabl e Reason for Visit * Reason Comments Skin Cancer Examination Encounter Details Date Type Department Care Team (Late st Contact Info) Description 11/20/2022 10:30 AM EDT Office Visit Dermatology at [facility] [address] [place] [address] Alicja Goss MD [facility] [place] [address] Scar; Actinic keratoses; Seborrheic keratoses; Milium Social History Tobacco Use Types Packs/Day Years Used Date Smoking Tobacco: Never Smokeless Tobacco: Never Sex and Gender Information Value Date Recorded Sex Assigned at Not on file Gender Identity Not on file Sexual Orientation Not on file documented as of this encounter Progress Notes * Alicja Goss MD - 11/20/2022 10:30 AM EDT Images from the original note were not included. DEPARTMENT OF DERMATOLOGY Medical Dermatology Clinic Provider: ALICJA GOSS MD Patient's preferred name Nelida Preferred contact method for results [x]Phone []myD-H [...] of Present Illness: Nelida Courtney is a 82 y.o. Patient returns to clinic today for a full skin exam with the following concerns: - Lesion on the right nasal tip that was treated with cryotherapy but did not resolve. The lesion is asymptomatic. - Red lesions on the bilateral inframammary that started ~6 months ago on the left inframammary andthen spread to the right inframammary. Denies pain or pruritus. She has been treating with Cetaphilcream with improvement. She questions whether her bra caused some irritation. - Lesion on the left ear that she has attempted to squeeze unsuccessfully. - Lesion on the left neck. - Lesion on the right lower lip that was treated with cryotherapy previously. She does endorse biting the lesion. Last visit at Dermatology: 11/01/2021 Last visit with this provider: 11/01/2021 Medications: Reviewed in eD-H Allergies: Reviewed in [...] Keratoses - Ill-defined gritty papules on the right nasal tip x1, right lower lip x1, and right cheek x1. - Explained premalignant potential of these lesions. - Discussed treatment with cryotherapy. Patient elects to proceed with cryotherapy today. - Instructed patient to return to clinic for re-evaluation if lesion(s) does not resolve as expected with this treatment. Procedure: Destruction of lesion(s) with cryotherapy (LN2). Location(s): As noted above. Number: 3 Discussed procedure and expectations, including risks and benefits. Verbal consent obtained. Treated with LN2. There were no complications; Patient tolerated the procedure well. Post-procedure expectations and wound care reviewed. B. Scars - 2-4 mm punctate scars on the left > right inframammary. - Discussed benign nature of lesions and provided reassurance. No treatment necessary at this time. - Reviewed that lesions may fade but not resolve entirely. C. Milium - 0.1 cm firm, round, white subcutaneous papule on the left earlobe rim. - Discussed benign nature of lesion and provided reassurance. No treatment necessary. D. Seborrheic Keratoses - Stuck on, waxy papules on the trunk and extremities, including on the left neck. - Discussed benign nature of lesions and provided reassurance. No treatment necessary at this time. Other: OTC skin products discussed: Cetaphil Cream RTC: 1 year for FSE []Note routed to clinical secretary [x]Recall placed in scheduling system []Appointment scheduled at checkout Scribe attestation: Devi Washington CMA has performed the documentation for this encounter in the presence of and acting as a scribe for ALICJA GOSS MD. I performed the above scribed service and agree with the accuracy of the documentation in this encounter. Reviewed and signed by: ALICJA GOSS MD Dermatology [facility] documented in this encounter Plan of Treatment Not on file documented as of this encounter Visit Diagnoses Diagnosis Scar Scar condition and fibrosis of skin Actinic keratoses Actinic keratosis Seborrheic keratoses Milium Sebaceous cyst documented in this encounter Care Teams Garage Supervisor Relationship Specialty Start Date End Date Unknown None PCP - General 01/27/22 05/08/23 documented as of this encounter
--- OUTSIDE RECORDS SUMMARY | 2024-03-03 09:29 | XMS_ITS | Encounter Summary ---
Author Organization [facility] [place] [address] Care Team Providers Care Stakeholder Manager Name Role Phone Karine Garza MD Primary Care Provider [phone] Reason for Visit * Reason Comments Follow-up Encounter Details Date Type Department Care Team (Late st Contact Info) Description 02/17/2015 11:00 AM EDT Office Visit Dermatology at [facility] [address] [place] [address] Chris Anderson MD [address] [facility] [facility] [place] [address] AK (actinic keratosis) (Primary Dx); Eczema; Seborrheic keratosis Social History Tobacco Use Types Packs/Day Years Used Date Smoking Tobacco: Never Sex and Gender Information Value Date Recorded Sex Assigned at Not on file Gender Identity Not on file Sexual Orientation Not on file documented as of this encounter Progress Notes * Pipe Tapia LPN - 02/17/2015 10:53 AM EDT Patient is established to this clinic. Chief Complaint: efudex follow up History of Present Illness Nelida Courtney is a 74 y.o. female. Here today for efudex follow up on her nasal tip she applied it for two weeks then took two weeks off and then applied for additional two weeks she reports a good blistering cherelle reaction. Healed well. No complications. Also, complains of a persistent rough lesion on her lower lip that has developed since Dec 2014. No pain. No bleeding. Never treated or biopsied. Also, complains of red patches on her bilateral thumbs that occasionally flare and cause mildly tender fissures. No known triggers. Does not garden and denies exposure to harsh chemicals. Also, concerned about an asymptomatic brown lesions on her right cheek and right chest. Present for months. No bleeding. Never been treated or biopsied. Interval changes to Medications and Medical, Family and Social Histories (including alcohol and tobacco use) Since Last Visit 12-09-14: No significant interval history. Skin Cancer History No personal history of skin cancer No family history of skin cancer Allergies Allergies Allergen Reactions ??? Cis Free Text Allergy Environmental. CIS - Allergic Rhinitis Medications Reconciled as above. Social History Tobacco use - none Alcohol use - socially here today - wheel chair bound Review of Systems Significant for no fevers, chills, night sweats, or fatigue and no other pertinent and acute changes in constitutional, other skin, HEENT, allergy/immunology systems upon specific queries. Examination [facility] Mood is appropriate. Well developed, well-nourished in no apparent distress, alert and oriented to time, person, place and situation. Skin Type: II. Examination of the face and hands: significant for the following: - 9 mm brown stuck on papules on the right cheek x 1 and on the right chest x 1 - dry scaly patches on the volar thumbs - 8 x 2 mm hyperkeratotic papule right lower lip mark border - Depigmented, atrophic slightly pink papule without scale on the right nasal tip Assessment and Plan Actinic Keratosis Resolved on the right nasal tip post efudex c/b scar. New AK on the lip. Counseled: AKs, risk for progression to SCCs, and treatment options, including observation, cryotherapy (recommended), topicals, and PDT. Answered all questions. Handout given. Total 1 treated with cryotherapy, 2 cycles at 5 seconds each cycle with 30 seconds thaw interval for each, after verbally discussing the disease and treatment options, cryotherapy method, expected results/course and potential adverse effects, including crusting, persistent erythema, scar, blister, pain, dyspigmentation, and recurrence. Patient verbally agreed. Patient tolerated well with no complications. Wound care instructions provided. If no resolution in 2 weeks or recurrence, recommend return to clinic for biopsy. Dyshidrotic Eczema, Thumbs DDx: Dishydrotic eczema over psoriasis or ACD. Counseled: hand dermatitis/dyshidrotic eczema, etiology, barrier dysfunction, skin care, aggressivemoisturization with nightly occlusion with white cotton gloves, decreased water-work/exposure and post-water moisturization, as well as treatment options (including risks and benefits), including topical steroids, phototherapy, and systemic immunosuppresives. Risks and benefits of topical steroids discussed. Answered all questions. Handout given. FLARES Aquaphor 5-10 x per day Clobetasol twice daily prn severe eczema. Soak and smear or wet wraps 3 x per week for 3 weeks optional. MILD ACTIVITY Clobetasol twice daily prn severe eczema. Soak and smear or wet wraps 3 x per week for 3 weeks optional. Cetaphil 3-7 x per day MAINTENANCE Hand and skin care Cetaphil 2-3 x per day Consider biopsy in the future. Seborrheic Keratosis Benign. No treatment necessary. Counseled: SKs, benign, treatment options for symptomatic lesions. Answered all questions. Handout given Follow-up: RTC in September 2015 skin check, reminder placed in system today. I am documenting this encounter acting as the scribe for and in the presence of Dr. Anderson: PIPE TAPIA LPN I performed the above scribed service and agree with the accuracy of the documentation in this encounter. Chris Anderson MD [facility]AD Section of Dermatology [facility] documented in this encounter Plan of Treatment Not on file documented as of this encounter Visit Diagnoses Diagnosis AK (actinic keratosis)- Primary Actinic keratosis Eczema Contact dermatitis and other eczema, due to unspecified cause Seborrheic keratosis Other seborrheic keratosis documented in this encounter Care Teams Stakeholder Manager Relationship Specialty Start Date End Date Karine Garza MD [address] [address] PCP - General 03/28/10 11/20/17 documented as of this encounter
--- OUTSIDE RECORDS SUMMARY | 2024-03-03 09:29 | XMS_ITS | Encounter Summary ---
Author Organization [facility] [place] [address] Care Team Providers Care Caseworker Protective Services Name Role Phone Karine Garza MD Primary Care Provider [phone] Encounter Details Date Type Department Care Team (Latest Contact Info) Description 10/16/2011 10:13 AM EDT - 10/16/2011 11:59 PM EDT Hospital [place] [address] CLINIC, Karine Delarosa MD [address] [place] [address] Abnormal findings on diagnostic imaging of breast Discharge Disposition: Home Social History Tobacco Use [...] 02/17/2009 11/21/2017 documented as of this encounter Miscellaneous Notes * Miscellaneous - Provider, Scanning - 10/24/2011 9:36 AM EDT documented in this encounter Plan of Treatment Not on file documented as of this encounter Procedures Procedure Name Priority Date/Time Associated Diagnosis Comments MAMMO STEREOTACTIC BIOPSY Routine 10/16/2011 12:13 PM EDT Abnormal findings on diagnostic imaging of breast documented in this encounter Results * Mammo stereotactic (10/16/2011 [...] Diagnosis Abnormal findings on diagnostic imaging of breast Other (abnormal) findings on radiological examination of breast documented in this encounter Care Teams Caseworker Protective Services Relationship Specialty Start Date End Date Karine Garza MD [address] [place] [address] PCP - General 03/28/10 11/20/17 documented as of this encounter
--- OUTSIDE RECORDS SUMMARY | 2024-03-03 09:29 | XMS_ITS | Encounter Summary ---
Author Organization [facility] [place] [address] Care Team Providers Care Air Brake Adjuster Name Role Phone Woody Puente DNP Primary Care Provider Encounter Details Date Type Department Care Team (Late st Contact Info) Description 11/01/2023 11:15 AM EDT Telehealth [place] [address] Telehealth, Neurology None Social History Tobacco Use Types Packs/Day Years Used Date Smoking Tobacco: Never Smokeless Tobacco: Never Sex and Gender Information Value Date Recorded Sex Assigned at Not on file Gender Identity Not on file Sexual Orientation Not on file documented as of this encounter Plan of Treatment Not on file documented as of this encounter Visit Diagnoses Not on filedocumented in this encounter Care Teams Air Brake Adjuster Relationship Specialty Start Date End Date Woody Puente DNP [address] [place] [address] PCP - General Family Medicine 05/09/23 documented as of this encounter
--- OUTSIDE RECORDS SUMMARY | 2024-03-03 09:29 | XMS_ITS | Encounter Summary ---
Author Organization [facility] [place] [address] Care Team Providers Care Telecommunications Facility Examiner Name Role Phone Woody Puente DNP Primary Care Provider Encounter Details Date Type Department Care Team (Late st Contact Info) Description 11/01/2023 7:15 PM EDT Telehealth [place] [address] Telehealth, Neurology None Social History Tobacco Use [...] on filedocumented in this encounter Care Teams Telecommunications Facility Examiner Relationship Specialty Start Date End Date Woody Puente DNP [address] [place] [address] PCP - General Family Medicine 05/09/23 documented as of this encounter
--- OUTSIDE RECORDS SUMMARY | 2024-03-03 09:29 | XMS_ITS | Encounter Summary ---
Author Organization [facility] [place] [address] Care Team Providers Care Defense Travel Administrator Name Role Phone Karine Garza MD Primary Care Provider [phone] Encounter Details Date Type Department Care Team (Latest Contact Info) Description 10/12/2011 9:36 AM EDT - 10/12/2011 11:59 PM EDT Hospital [place] [address] CLINIC, Karine Delarosa MD [address] [place] [address] Abnormal mammogram, unspecified Discharge Disposition: Home Social History Tobacco Use [...] Name Priority Date/Time Associated Diagnosis Comments MAMMO UNILATERAL DIAGNOSTIC SCREENING WITH CAD Routine 10/12/2011 10:30 AM EDT Abnormal mammogram, unspecified documented in this encounter Results * MAMMO UNILATERAL DIAGNOSTIC SCREENING WITH CAD (10/12/2011 10:30 AM EDT) Anatomical Region Laterality Modality Breast N/A Mammography 10/12/2011 10:3 0 AM EDT Narrative 10/15/2011 8:40 AM EDT BILATERAL MAMMOGRAPHY ON 10/12/11: DIAGNOSTIC IMAGING SUMMARY: RIGHT BREAST LESION 1: SUSPICIOUS (BIRADS Category 4). Finding: Cluster of microcalcifications. Size: 11mm. Location: 1200, 8cm from the nipple. Recommendation: This group of indeterminate calcifications has shown a change since the previous exam during follow-up; this change requires intervention. Stereotactic biopsy is recommended to determine the histology. This has been scheduled for 10/16/11 at 10:50am. Findings discussed with the patient who concurs. This is a (BIRADS Category 1) NEGATIVE Left mammogram. The next Left mammogram is recommended in one year. Preliminary report E-mailed to Dr. Karine Garza on 10/15/11. NARRATIVE: CLINICAL INDICATION: One year follow-up for BIRADS Category 3 probably benign Right breast for calcifications and screening of the Left breast. TECHNIQUE: Bilateral CC and MLO views, Right mag CC and Right mag ML views obtained with direct digital capture. FINDINGS: This is a (BIRADS Category 4) SUSPICIOUS Right breast for an 11mm group of ten to twelve microcalcifications in the superior central Right breast at 1200, 8cm from the nipple. Although the new calcifications have a fairly benign morphology, the change/ increase in number requires further evaluation with biopsy. ??No associated mass or architectural distortion is seen. The remainder of the Right breast is unremarkable. This is a (BIRADS Category 1) NEGATIVE Left mammogram. There is an unremarkable fibroglandular pattern in the Left breast which is stable compared to prior studies. There is no mammographic evidence of cancer. The breasts are heterogeneously dense which may limit the sensitivity of mammography for the detection of malignancy. Procedure Note Melonie Hutchison MD - 10/15/2011 BILATERAL MAMMOGRAPHY ON 10/12/11: DIAGNOSTIC IMAGING SUMMARY: RIGHT BREAST LESION 1: SUSPICIOUS (BIRADS Category 4). Finding: Cluster of microcalcifications. Size: 11mm. Location: 1200, 8cm from the nipple. Recommendation: This group of indeterminate calcifications has shown achange since the previous exam during follow-up; this change requiresintervention. Stereotactic biopsy is recommended to determine the histology. This hasbeen scheduled for 10/16/11 at 10:50am. Findings discussed with the patient who concurs. This is a (BIRADS Category 1) NEGATIVE Left mammogram. The next Leftmammogram is recommended in one year. Preliminary report E-mailed to Dr. Karine Garza on 10/15/11. NARRATIVE: CLINICAL INDICATION: One year follow-up for BIRADS Category 3 probablybenign Right breast for calcifications and screening of the Left breast. TECHNIQUE: Bilateral CC and MLO views, Right mag CC and Right mag ML views obtained with direct digital capture. FINDINGS: This is a (BIRADS Category 4) SUSPICIOUS Right breast for an11mm group of ten to twelve microcalcifications in the superior central Rightbreast at 1200, 8cm from the nipple. Although the new calcifications have afairly benign morphology, the change/ increase in number requires furtherevaluation with biopsy. No associated mass or architectural distortion is seen. The remainder of the Right breast is unremarkable. This is a (BIRADS Category 1) NEGATIVE Left mammogram. There is anunremarkable fibroglandular pattern in the Left breast which is stable compared toprior studies. There is no mammographic evidence of cancer. The breasts are heterogeneously dense which may limit the sensitivity of mammography for the detection of malignancy. Karine Garza MD IMG MAMMO ORDERABLES documented in this encounter Visit Diagnoses Diagnosis Abnormal mammogram, unspecified documented in this encounter Care Teams Defense Travel Administrator Relationship Specialty Start Date End Date Karine Garza MD [address] [place] [address] PCP - General 03/28/10 11/20/17 documented as of this encounter
--- OUTSIDE RECORDS SUMMARY | 2024-03-03 09:29 | XMS_ITS | Encounter Summary ---
Author Organization Formerly [facility] [place] [address] Care Team Providers Care Construction Foreman Name Role Phone Karine Graza MD Primary Care Provider [phone] Reason for Visit * Reason Comments Skin Lesion nose, left arm, left breast Encounter Details Date Type Department Care Team (Late st Contact Info) Description 12/02/2012 11:00 AM EDT Office Visit Dermatology at [facility] [address] [place] [id number] CLINIC, Zeferino Funk MD [facility] [place] [address] Eczema (Primary Dx); Seborrheic keratosis; Hemangioma; Milia Discharge Disposition: Home Social History Tobacco Use Types Packs/Day Years Used Date Smoking Tobacco: Never Sex and Gender Information Value Date Recorded Sex Assigned at Not on file Gender Identity Not on file Sexual Orientation Not on file documented as of this encounter Progress Notes * Fior Castellanos LPN - 12/02/2012 10:50 AM EDT DERMATOLOGY CONSULT NOTE Date of service: 12/02/2012 Nelida Courtney : 1940 Provider: Zeferino Stephens MD PROBLEM: The patient is seen at the request of herself, was last seen by Dr. Florian on 02/17/09 and is newto me. REEBCCA Courtney is a 72 y.o. year old female who is here today for evaluation of a pink spot on the tip of her nose, a spot on her left arm, a spot on her left breast and some skin dryness betweenher thumbs and index fingers. She uses sunscreen and moisturizes her skin daily. PAST MEDICAL HX: Denies SOCIAL HX: for 55 years FAMILY HX: Denies PATIENT SCREENING QUESTIONS What blood thinner do you take? ASA 81 mg ADR: Allergies Allergen Reactions ??? Cis Free Text Allergy Environmental. CIS - Allergic Rhinitis MEDS: Current Outpatient Prescriptions Medication Sig Dispense Refill ??? CIS Free Text Med - Aspirin ??? CIS Free Text Med - Calcium 600 with Vitamin D ??? alendronate (FOSAMAX) 70 mg tablet ??? MULTIVITAMINS W-MINERALS/LUT (CENTRUM SILVER ORAL) ??? Docusate Sodium 100 mg Tab ROS General: feeling well Skin: denies other skin complaints EXAM General: NAD, pleasant, cooperative An abbreviated skin exam was done today of: Left breast, nose, bilateral hands, left upper arm Significant skin findings: A. 0.2-0.4cm bright red, well-demarcated papule on tip of nose B. Small cystic lesion on upper left arm consistent of a miliam C. 0.4-1 cm, brown-black papules/plaques with waxy stuck on appearance on left chest ASSESSMENT/PLAN: A. Hemangioma Procedure: Destruction of lesion. Site: Tip of :Nose. Discussed indications and expectations including risks and benefits. Verbal consent obtained. The entire lesion plus a small margin was treated by curettage and electrodesiccation. No complications. Expectations (including discomfort management)and wound care reviewed. B. Miliam ?? Benign-patient reassured C. Seborrheic Keratosis Procedure Note: Procedure: Destruction of lesion(s) with cryotherapy. Number: 1 Location: as above Discussed procedure and expectations including risks (including risk of hypopigmentation) and benefits. Verbal consent obtained. Frozen with LN2, 15-30 second thaw time, TWICE. There were no complications; the patient tolerated the procedure well. Post-procedure expectations and wound care were reviewed. D. Eczema ?? Continue with current regimen of Triamcinolone as needed I am documenting this encounter acting as the scribe for and in the presence of Dr. Stephens: Fior Castellanos LPN RTC: Patient to schedule full skin check next September with her . I performed the above scribed service and agree with the accuracy of the documentation in this encounter. Zeferino Stephens MD Section of Dermatology [facility] documented in this encounter Plan of Treatment Not on file documented as of this encounter Visit Diagnoses Diagnosis Eczema- Primary Contact dermatitis and other eczema, due to unspecified cause Seborrheic keratosis Other seborrheic keratosis Hemangioma Hemangioma of unspecified site Milia Sebaceous cyst documented in this encounter Care Teams Construction Foreman Relationship Specialty Start Date End Date Karine Garza MD [address] [place] [address] PCP - General 03/28/10 11/20/17 documented as of this encounter
--- OUTSIDE RECORDS SUMMARY | 2024-03-03 09:29 | XMS_ITS | Encounter Summary ---
Author Organization [facility] [place] [address] Care Team Providers Care Motion Picture Photographer Name Role Phone Karine Garza MD Primary Care Provider [phone] Encounter Details Date Type Department Care Team (Latest Contact Info) Description 10/16/2011 10:13 AM EDT - 10/16/2011 11:59 PM EDT Hospital [place] [phone] Abnormal findings on diagnostic imaging of breast Social History Tobacco Use Types Packs/Day Years [...] Procedure Name Priority Date/Time Associated Diagnosis Comments SURGICAL PATHOLOGY REPORT Routine 10/16/2011 12:37 PM EDT MAMMO SPECIMEN Routine 10/16/2011 12:12 PM EDT Abnormal findings on diagnostic imaging of breast documented in this encounter Results * SURGICAL PATHOLOGY REPORT (10/16/2011 12:37 PM EDT) Surgical Pathology Report ? [facility] ? Provider: ?? VISHNU OFX ?? Pt. Name: ?? BRANDO QUINONES ? Acc #: ?S ?Pt. ? Col Date: ?? 10/16/2011 ? /Sex: ?1940,(71 ? years),Female ? Rec Date: ?? 10/16/2011 ? LOC: ?3S ? SURGICAL PATHOLOGY ? ---Pathologic Diagnosis--- ? Needle biopsies: ?Right breast. ? 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 Microcalcifications : ??Present, associated with fibroadenomatous change ? CR-0 ? 10/17/11 ? JOSEMANUEL ? 10/17/11 Verified by: ? Chris Barillas MD ? Pathologist ? (Electronic Signature) ? The attending pathologist whose signature appears on this report has ? reviewed all diagnostic slides and has edited the gross and/or ? microscopic portion of the report in rendering the final pathologic ? diagnosis. ? ---Microscopic Description--- ? Slides reviewed, microscopic description not recorded. ? ---Gross Description--- ? Specimen: ?Received in two containers. ? 1 - Labeled/Fixative: ??Right breast calcs, formalin. ? Qty/Size/Weight: ? Two cylindrical cores of orr-white and ?yellow-white, fatty and fibrofatty tissue, ?0.6 x 0.3 cm to 3.0 x 0.3 cm. ? Sections/Processing : ?? Submitted in (A1). ? 2 - Labeled/Fixative: ??Right breast no calcs, formalin. ? Qty/Size/Weight: ? Multiple cylindrical cores of orr-white and ?yellow-white, fatty and fibrofatty tissue, ranging ?from minute to 3.5 x 0.3 cm. ? Sections/Processing : ?? Submitted in (A2-A4). ? Ischemic Time: ? 15 minutes. ??(T4) ??aje/SNS ? ---Clinical Information--- ? Specimen Submitted: ? A - Right Breast SBx 9 gauge ? Clinical History/Diagnosis: ? [facility] ? Provider: ?? VISHNU FOX ?? Pt. Name: ?? BRANDO QUINONES ? Acc #: ?Pt. ? Col Date: ?? 10/16/2011 ? /Sex: ?1940,(71 ? years),Female ? Rec Date: ?? 10/16/2011 ? LOC: ?3S ? Coarse calcs, FAC, FCD, DCIS ? SURGICAL PATHOLOGY ? Report to: ? Karine Garza MD ? [facility] ? [address] ? [place] [address] TRISTAN GALVANIUM 10/16/2011 12:3 7 PM EDT Vishnu Fox MD PATHOLOGY/CYTOLOGY O RDERABLES Performing Organization Address City/State/[facility] Co de Phone Number TRISTAN SHETH * Mammo specimen (10/16/2011 12:12 PM EDT) Anatomical Region Laterality Modality Breast N/A Mammography 10/16/2011 12:1 2 PM EDT Impressions 10/17/2011 11:17 AM EDT Impression: concordant Recommendation: F/U mammgraphy in one year. As discussed with Mrs. Quinones by Dr. Fox on 10/17/11. ?? I [...] breast documented in this encounter Care Teams Motion Picture Photographer Relationship Specialty Start Date End Date Karine Garza MD [address] [place] [address] PCP - General 11/23/10 7/18/18 documented as of this encounter
--- OUTSIDE RECORDS SUMMARY | 2024-03-03 09:29 | XMS_ITS | Encounter Summary ---
Author Organization Formerly [facility] [place] [address] Care Team Providers Care Vp Design Name Role Phone Karine Garza MD Primary Care Provider [phone] Encounter Details Date Type Department Care Team (Late st Contact Info) Description 12/30/2014 Telephone Dermatology at [facility] [address] [place] [phone] Chris Anderson MD [address] [facility] [place] [address] Social History Tobacco Use Types Packs/Day Years Used Date Smoking Tobacco: Never Sex and Gender Information Value Date Recorded Sex Assigned at Not on file Gender Identity Not on file Sexual Orientation Not on file documented as of this encounter Miscellaneous Notes * Telephone Encounter - Chris Andreson MD - 12/30/2014 1:00 PM EDT Discussed with patient benign results as below. No further treatment necessary. Skin, left upper arm: Dermal fibrosis with increase of stellate shaped fibroblasts (see discussion). DISCUSSION The biopsy shows increase of stellate shaped fibroblasts within a nodular, eosinophilic and fibrotic stroma. The histologic differential diagnosis includes keloidal scar, sclerotic fibroma, keloidal dermatofibroma and desmoplastic fibroblastoma(collagenous fibroma). Nevertheless, this lesion is benign with no evidence of malignancy. Multiple deeper levels have been examined. Drs. Vela and Wolfgang have reviewed this case and concur with this diagnosis. documented in this encounter Plan of Treatment Not on file documented as of this encounter Visit Diagnoses Not on filedocumented in this encounter Care Teams Vp Design Relationship Specialty Start Date End Date Karine Garza MD [address] [place] [address] PCP - General 03/28/10 11/20/17 documented as of this encounter
--- OUTSIDE RECORDS SUMMARY | 2024-03-03 09:29 | XMS_ITS | Encounter Summary ---
Author Organization [facility] [place] [place] [address] Care Team Providers Care Career Development Coordinator Name Role Phone Shelley Ortez APRN Primary Care Provider [phone] Reason for Visit * Reason Comments Skin Cancer Examination Encounter Details Date Type Department Care Team (Late st Contact Info) Description 11/01/2021 11:30 AM EDT Office Visit Dermatology at [facility] [address] [place] [address] Alicja Coughlin MD [facility] [place] [address] [place] (actinic keratosis); SK (seborrheic keratosis); Venous pritchard Social History Tobacco Use Types Packs/Day Years Used Date Smoking Tobacco: Never Smokeless Tobacco: Never Sex and Gender Information Value Date Recorded Sex Assigned at Not on file Gender Identity Not on file Sexual Orientation Not on file documented as of this encounter Progress Notes * Alicja Coughlin MD - 11/01/2021 11:30 AM EDT Images from the original note were not included. DEPARTMENT OF DERMATOLOGY [facility] Provider: ALICJA COUGHLIN MD Patient's preferred name [place] Preferred contact method for results [x]Phone []myD-H [...] fibrosis with increase of stellate shaped fibroblasts ?? Dyshidrotic eczema (thumbs) Family History Details Melanoma N NMSC N Other relevant family history N Social History Occupation: retired Other: Pre-Procedure Questions Details Allergy to lidocaine, epinephrine, Dermabond, chlorhexidine, or adhesives N Bleeding disorder or blood thinners N Pacemaker, defibrillator, deep brain stimulator, cochlear implant N History of Present Illness: Nelida Courtney is a 81 y.o. Patient returns to clinic today for a full skin exam with the following concerns: - Mole on the left breast that was treated with LN2 previously, but has recurred. - Lesion on the right lower lip that was treated with LN2 as an AK but has not changed and is stillpresent. - New dry patch on the right nose that came in the last two months. - Redness on the nasal bridge. - Skin colored lesion on the right forehead. Last visit at Dermatology: 11/17/2019 Last visit with this provider: 11/17/2019 Medications: Reviewed in eD-H Allergies: Reviewed in eD-H Skin Examination: Full skin examination: Patient asked to undress to their comfort level. Verbalized that the provider's preference is that patient remove all clothing and that the provider will not examine areas patient elects to keep covered. Patient elects to keep underwear on. Examination of the scalp, hair, head, face, ears, neck, chest, axillae, abdomen, back, buttocks, and upper and lower extremities was normal with the exception of the findings below. Genitalia and buttocks not examined. Assessment/Plan: A. Actinic Keratoses - Ill-defined gritty papules on the right side of nose x3, left side of nose nose x1, left tip of nose x1, right lower lip x1, and left breast x1. - Explained premalignant potential of these lesions. - Discussed treatment with cryotherapy. Patient elects to proceed with cryotherapy today. - Instructed patient to return to clinic for re-evaluation if lesion(s) does not resolve as expected with this treatment. Procedure: Destruction of lesion(s) with cryotherapy (LN2). Location(s): As noted above. Number: 7 Discussed procedure and expectations, including risks and benefits. Verbal consent obtained. Treated with LN2. There were no complications; Patient tolerated the procedure well. Post-procedure expectations and wound care reviewed. B. Venous Pritchard - Blue-purple vascular macule that blanches upon diascopy on the central lower lip. - Discussed benign nature of lesion and provided reassurance. No treatment necessary at this time. C. Seborrheic Keratoses - Stuck on, waxy papules on the trunk and extremities including right upperforehead. - Discussed benign nature of lesions and provided reassurance. No treatment necessary at this time. Other: ??? N/A RTC: 1 year for FSE []Note routed to receptionist secretary [x]Recall placed in scheduling system []Appointment scheduled at checkout Scribe attestation: Eri Barrios and Devi Washington CMA have performed the documentation for this encounter in the presence of and acting as a scribe for ALICJA COUGHLIN MD. I performed the above scribed service and agree with the accuracy of the documentation in this encounter. Reviewed and signed by: ALICJA COUGHLIN MD Dermatology [facility] documented in this encounter Plan of Treatment Not on file documented as of this encounter Visit Diagnoses Diagnosis AK (actinic keratosis) Actinic keratosis SK (seborrheic keratosis) Other seborrheic keratosis Venous pritchard Hemangioma of skin and subcutaneous tissue documented in this encounter Care Teams Career Development Coordinator Relationship Specialty Start Date End Date Shelley Ortez APRN [address] [place] [address] PCP - General Family Medicine 11/21/17 01/26/22 documented as of this encounter
--- OUTSIDE RECORDS SUMMARY | 2024-03-03 09:29 | XMS_ITS | Encounter Summary ---
Author Organization [facility] [place] [address] Care Team Providers Care Equity Research Analyst Name Role Phone Karine Garza MD Primary Care Provider [phone] Encounter Details Date Type Department Care Team (Latest Contact Info) Description 10/16/2011 10:13 AM EDT - 10/16/2011 11:59 PM EDT Hospital En[place] [phone] Abnormal findings on diagnostic imaging of breast [...] Name Priority Date/Time Associated Diagnosis Comments MAMMO DIRECT DIGITAL UNILATERAL Routine 10/16/2011 12:12 PM EDT Abnormal findings on diagnostic imaging of breast documented in this encounter Results * Mammo direct digital unilateral (10/16/2011 12:12 [...] breast documented in this encounter Care Teams Equity Research Analyst Relationship Specialty Start Date End Date Karine Garza MD [address] [place] [address] PCP - General 03/28/10 11/20/17 documented as of this encounter
--- OUTSIDE RECORDS SUMMARY | 2024-03-03 09:29 | XMS_ITS | Encounter Summary ---
Author Organization [facility] Address [facility] [place] [address] Care Team Providers Care Ad Setter Name Role Phone Karine Garza MD Primary Care Provider [phone] Encounter Details Date Type Department Care Team (Late st Contact Info) Description 12/09/2014 11:00 AM EDT Follow-Up Dermatology at [facility] [address] [place] [id number] CLINIC, Carolyn Machuca MD [address] [facility] [place] [address] Neoplasm of uncertain behavior of skin (Primary Dx); Actinic keratosis; SK (seborrheic keratosis) Discharge Disposition: Home Social History Tobacco Use Types Packs/Day Years Used Date Smoking Tobacco: Never Sex and Gender Information Value Date Recorded Sex Assigned at Not on file Gender Identity Not on file Sexual Orientation Not on file documented as of this encounter Patient Instructions * Patient Instructions* Huyen Antonio - 12/09/2014 11:10 AM EDT Post-Biopsy Wound Care Instructions You have just had a skin biopsy. Wound care will be important to prevent infection and minimize scarring. ??? Keep the wound clean. You may wash the wound with soapy water running over the wound. Do not scrub. ??? Apply antibiotic ointment - e.g., polysporin, neosporin, bacitracin or bactroban - or clean vaseline to the wound and cover with a bandaid 1-2 times a day. ??? Keep the wound dressed this way 24h a day until healed - typically 7-14 days, though healing times may vary depending on the size of the wound and the location. ??? Do not let the wound scab over or dry up, which may delay wound healing and more likely producea more apparent scar than will already be formed. ??? The site may be itchy for up to several weeks. ??? If you notice redness spreading out from the wound, thick white or yellow drainage, increased swelling, tenderness at the wound or have any other questions or problems about the biopsy, please contact the clinic immediately. If you have any questions, please contact the clinic during the day at . In the case of urgency after 5PM and on weekends, please call the hospital number and ask for the Building Mover customer relations assistant. Pathology results may take 5-14 days depending on the number of stains that must be performed. If you do not hear back within 3 weeks of the biopsy, contact the clinic nurse or director of front office during normal business hours for the results. documented in this encounter Progress Notes * Cassidy Knox LPN - 12/24/2014 11:11 AM EDTQuick Note: Spoke to pt regarding results. * Pipe Tapia LPN - 12/09/2014 10:50 AM EDT Chief Complaint: Lesion History of Present Illness Brando Quinones is a 74 y.o. female. Complains of a lesion on the tip of the nose and left chest developing over months. No bleeding. Never been treated .She is also concerned with a lesion on left breast. Never treated or biopsied. Requests full body skin cancer screening (except buttocks and pubic areas). Interval changes to Medical, Family and Social History (including alcohol and tobacco use) Since Last Visit: She had cataract surgery in the October 19 right eye left eye November 02. Skin Cancer History None Allergies Allergies Allergen Reactions ??? Cis Free Text Allergy Environmental. CIS - Allergic Rhinitis Medications Reconciled as above. Social History Tobacco use - none Alcohol use - socially Review of Systems Significant for no fevers, chills, night sweats, or fatigue and no other pertinent and acute changes in constitutional, other skin, HEENT, allergy/immunology systems upon specific queries. Examination Standby: Huyen Antonio, Clinical Scribe Pain 0/10. Mood is good. Well developed, well-nourished in no apparent distress, alert and orientedto time, person, place and situation. Skin Type: I. Examination of the head - including the scalp, face, ears, nose, lips - neck, chest, abdomen, back,upper extremities significant for 4mm pearly papule on left upper arm. 6mm hyperkeratotic papule on right nasal tip. 3mm stuck-on brown papule on left chest on left upper breast. Procedure Shave Procedure Indication: Neoplasm of uncertain behavior Procedure: A. Shave Location: A. Left upper arm Pre-operative diagnosis: A. Scar v BCC Consent: Discussed indications for procedure and expectations including risks and benefits. Verbal consent obtained Time Out Performed: Full Name, , site(s) confirmed with patient : N/A Defibrillator or Pacemaker: Denies Anesthesia: 1% lidocaine with 1:100,000 epinephrine Prep: alcohol Lesion biopsied with shave technique using tj blade. Hemostasis achieved with Drysol/elecrocautery. <1ml blood loss. No complications. Specimen(s): Placed in formalin and sent to Pathology for histologic examination. Post-op care: Vaseline, bandaid Post-operative pain: 0/10. Assessment and Plan Neoplasm of Uncertain Behavior Wound care instructions provided. Wound care: Vaseline or antiobiotic ointment qd-bid and cover with bandaid until healed. May shower and let soapy water over top. Vitamin E oil or Mederma massaged into wound 1-3 x per day for several months to minimize scar after wound healed (limited efficacy data to support) Actinic Keratosis Counseled: AKs, risk for progression to SCCs, and treatment options, including observation, cryotherapy (recommended), topicals, and PDT. Answered all questions. Handout given. Patient declines cryotherapy and would like to do efudex. Extensively discussed efudex, efficacy, appropriate use, risks of bleeding, scarring, pain/discomfort, contact dermatitis, expected results and sun protection while using. Images of expected course shown to patient. Answered all questions. Patient verbally understands. Handout with instructions given. Patient agrees with this plan. Efudex to nose bid for 2-4 weeks. Seborrheic Keratosis Benign. No treatment necessary. Counseled: SKs, benign, treatment options for symptomatic lesions. Answered all questions. Handout given Patient Counseling Counseled: Counseled: sun protection, self skin exams, provider skin exams every 12 months, and theABCDEs of melanoma/NMSC (handout given). Answered all questions. Follow-up: 2-3 months; appointment scheduled upon exit. Patient instructed to call with questions or concerns. I am documenting this encounter acting as the scribe for and in the presence of Dr. Anderson: PIPE TAPIA CLASS A TRUCK DRIVER and Huyen Antonio, Clinical Scribe I performed the above scribed service and agree with the accuracy of the documentation in this encounter. Carolyn Anderson MD FAAD Section of Dermatology [facility] documented in this encounter Plan of Treatment Not on file documented as of this encounter Procedures Procedure Name Priority Date/Time Associated Diagnosis Comments SPECIMEN TO PATHOLOGY (NON-OR) Routine 12/09/2014 12:07 PM EDT Neoplasm of uncertain behavior of skin SURGICAL PATHOLOGY REPORT Routine 12/09/2014 12:07 PM EDT documented in this encounter Results * Surgical Pathology Report (12/09/2014 12:07 PM EDT) Final Diagnosis ? [facility] ? Provider: ?? CAROLYN ANDERSON ?? Pt. Name: ?? BRANDO QUINONES ? Acc #: ?[id number] ? Pt. ? Col Date: ?? 12/09/2014 ?/Sex: ?1940,(74 ? years),Female ? Rec Date: ?? 12/09/2014 ?LOC: ?HDM ? SURGICAL PATHOLOGY ? DIAGNOSIS ? Skin, left upper arm: ?Dermal fibrosis with increase of stellate shaped fibroblasts (see ? discussion). ? CR-0 ? 12/10/14 ? ANL ? 12/13/14 Verified by: ? Zuhair BERGER, PhD, Luis Fernando ? Dermatopathologist ? (Electronic Signature) ? The attending pathologist whose signature appears on this report has ? reviewed all diagnostic slides and has edited the gross and/or ? microscopic portion of the report in rendering the final pathologic ? diagnosis. ? DISCUSSION ? The biopsy shows increase of stellate shaped fibroblasts within a nodular, ? eosinophilic and fibrotic stroma. The histologic differential diagnosis ? includes keloidal scar, sclerotic fibroma, keloidal dermatofibroma and ? desmoplastic fibroblastoma(collage nous fibroma). Nevertheless, this lesion ? is benign with no evidence of malignancy. Multiple deeper levels have been ? examined. ??Drs. Vela and Wolfgang have reviewed this case and concur with ? this diagnosis. ? GROSS DESCRIPTION ? A - Labeled/Fixative: Patient's information, formalin. ? Quantity/Size: Single, 0.8 x 0.5 x 0.2 cm. ? Tissue Description: Shave of diaz skin with a 0.4 x 0.4 cm firm, eccentric, ? diaz papule. ? Sections/Processing: Inked and trisected. (T1) ??aml ? CLINICAL INFORMATION ? Specimen Submitted: ? A - Skin, left upper arm, shave, (1) ? Clinical History: ? 4 mm pearly papule ? Clinical Diagnosis: ? Scar versus BCC 12/13/2014 2:38 PM EDT [facility] SPECIMEN FROM SKIN / Unknown 12/09/2014 12:07 PM EDT 12/09/2014 12:07 PM EDT Carolyn Anderson MD PATHOLOGY/CYTOLOGY O JESSICA Performing Organization Address City/[facility]/ZIP Co de Phone Number TRISTAN SHETH [facility] [place] [address] * Specimen to Pathology (NON-OR) (12/09/2014 12:07 PM EDT) AP Specimen 12/09/2014 12:0 7 PM EDT 12/09/2014 12:07 PM EDT Narrative TRISTAN SHETH - 12/09/2014 12:07 PM EDT Specimen requisition ordered. ??Separate Pathology report to follow Carolyn Anderson MD PATHOLOGY/CYTOLOGY O JESSICA Performing Organization Address [facility]/ZIP Co de Phone Number TRISTAN JOEKEVON documented in this encounter Visit Diagnoses Diagnosis Neoplasm of uncertain behavior of skin- Primary Actinic keratosis SK (seborrheic keratosis) Other seborrheic keratosis documented in this encounter Care Teams Ad Setter Relationship Specialty Start Date End Date Karine Garza MD [address] [place] [address] PCP - General 03/28/10 11/20/17 documented as of this encounter
--- OUTSIDE RECORDS SUMMARY | 2024-03-03 09:29 | XMS_ITS | Encounter Summary ---
Author Organization [facility] [place] [address] Care Team Providers Care Crusher Loader Operator Name Role Phone Karine Garza MD Primary Care Provider [phone] Encounter Details Date Type Department Care Team (Late st Contact Info) Description 10/16/2011 [place] [address] Vishnu Fox MD [facility] [place] [address] Social History Tobacco Use Types Packs/Day Years Used Date Smoking Tobacco: Never Assessed Sex and Gender Information Value Date Recorded Sex Assigned at Not on file Gender Identity Not on file Sexual Orientation Not on file documented as of this encounter Progress Notes * Vishnu Fox MD - 10/16/2011 11:01 AM EDT Procedure date: done today Procedure type: right Breast stereotactic needle biopsy Special Instructions: none Allergies: Cis free text allergy Medications: Current outpatient prescriptions:CIS Free Text Med - Aspirin, , Disp: , Rfl: ; CIS Free Text Med - Calcium 600 with Vitamin D, , Disp: , Rfl: ; alendronate (FOSAMAX) 70 mg tablet, , Disp: , Rfl: ; MULTIVITAMINS W- MINERALS/LUT (CENTRUM SILVER ORAL), , Disp: , Rfl: ; Docusate Sodium 100 mg Tab, , Disp: , Rfl: Anticoagulation status: ASA Imaging reviewed and procedural plan approved by Dr. VISHNU FOX MD documented in this encounter Plan of Treatment Not on file documented as of this encounter Visit Diagnoses Not on filedocumented in this encounter Care Teams Crusher Loader Operator Relationship Specialty Start Date End Date Karine Garza MD [address] [place] [address] PCP - General 03/28/10 11/20/17 documented as of this encounter
--- OUTSIDE RECORDS SUMMARY | 2024-03-03 09:29 | XMS_ITS | Encounter Summary ---
[place] [address] Care Team Providers Care Production Planning Supervisor Name Role Phone Unknown Primary Care Provider Unavailabl e Encounter Details Date Type Department Care Team (Latest Contact Info) Description 11/20/2022 Travel Social History Tobacco Use Types Packs/Day Years [...] on filedocumented in this encounter Care Teams Production Planning Supervisor Relationship Specialty Start Date End Date Unknown None PCP - General 01/27/22 05/08/23 documented as of this encounter
--- OUTSIDE RECORDS SUMMARY | 2024-03-03 09:29 | XMS_ITS | Encounter Summary ---
Author Organization [facility] [place] [place] [address] Care Team Providers Care Cobol Engineer Name Role Phone Shelley Ortez APRN Primary Care Provider [phone] Reason for Visit * Reason Comments Skin Cancer Examination Encounter Details Date Type Department Care Team (Late st Contact Info) Description 11/17/2019 11:00 AM EDT Office Visit Dermatology at [facility] [address] [place] [address] Reyna Goss MD [facility] [address] AK (actinic keratosis); SK (seborrheic keratosis); Multiple benign nevi; History of Dyshidrotic eczema; Oilton of foot Social History Tobacco Use Types Packs/Day Years Used Date Smoking Tobacco: Never Smokeless Tobacco: Never Sex and Gender Information Value Date Recorded Sex Assigned at Not on file Gender Identity Not on file Sexual Orientation Not on file documented as of this encounter Patient Instructions * Patient Instructions* Cristela Barrett, [facility] - 11/17/2019 11:00 AM EDT Actinic Keratoses Diagnosis: You have been diagnosed today with an actinic keratosis. These dry, scaly patches are considered the earliest stage in the development of skin cancer. A significant percentage of actinic keratoses develop into squamous cell carcinoma skin cancer; estimates range from 10-20% over a 10-year period. Because of this risk, actinic keratoses are usually treated. Treatment: You were treated today with liquid nitrogen. This is the most common treatment for actinic keratoses. Liquid nitrogen is extremely cold and freezes the surface of the skin, causing the lesion to flake off. This treatment can be uncomfortable but discomfort should subside after a couple of hours. The area treated will look red and irritated, and it may blister up or turn dark, then fall off. This is normal. Wound care: You do not need any special treatment for the area, but you may find cold compresses and/or a lightapplication of Vaseline soothing. For best results, do not rub or pick at the healing lesion. Expected healing time is 3-4 weeks. Please contact the clinic if the lesion has not fully resolved after 6 weeks. Prevention: Long-term exposure to the sun is the single most significant cause of actinic keratoses, so the best defense against them is a comprehensive sun protection program. This includes wearing protective clothing and a wide-brimmed hat, avoiding the sun at midday when ultraviolet rays are strongest, staying in the shade as much as possible, and wearing a broad-spectrum sunscreen with a sun protection factor (SPF) of at least 30. Contact information: On weekdays (8am to 5pm), please call the clinic at [phone]. After 5pm, and on weekends and holidays, please call the hospital at [phone] and ask for the Wait Staff Cement Grinding Mill Operator. documented in this encounter Progress Notes * Reyna Goss MD - 11/17/2019 11:00 AM EDT DERMATOLOGY ESTABLISHED PATIENT CLINIC NOTE Date of Service: 11/17/2019 Nelida Courtney : 1940 Provider: Reyna Goss MD Chief Complaint Patient presents with ??? Skin Cancer Examination SKIN HX Personal History Y/N Date, location, treatment Melanoma No DN No SCC No BCC No AK or field cancerization therapy Yes LN2, 5-FU (nasal tip) Immunosuppression or malignancy No Blistering sunburns or tanning bed use Yes + Blistering sunburns, with history of outdoor tanning Other (i.e., eczema, psoriasis) No 12/09/14: Left upper arm,dermal fibrosis with increase of stellate shaped fibroblasts Dyshidrotic eczema (thumbs) Relevant social history Family History Y/N Parents, siblings, children Melanoma No NMSC No Other No Patient Preferences Preferred name Nelida Preferred contact method [x] Home [] Cell [] myD-H [] Other: Permission to leave detailed message including results [x] Yes [] No Permission to discuss care with Daughter (Nikki) Preferred pharmacy [facility] in [place], [place] Procedure Screening Questions Y/N Allergies to lidocaine or epinephrine No Blood thinners No Pacemaker or defibrillator No HPI Nelida Courtney is a 79 y.o. female, established patient, new to me, last seen by Dr. Rabago on 11/21/2017. 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 Calcium Carbonate (Calcium 600) 600 mg calcium (1,500 mg) Tablet Take by mouth daily. ??? calcium-vitamin D3 600 mg calcium- 400 unit Tablet Take by mouth. ??? MULTIVITAMINS W-MINERALS/LUT (CENTRUM SILVER ORAL) ??? clobetasol (TEMOVATE) 0.05 % Ointment Apply to affected areas as directed (Patient not taking: Reported on 11/21/2017) 60 g 0 ??? fluorouracil (EFUDEX) 5 % Cream Apply thin layer to the nasal tip bid for 2- 4 weeks as directed(Patient not taking: Reported on 11/21/2017) 40 g 0 ??? CIS Free Text Med - Aspirin (Patient not taking: No sig reported) ??? alendronate (FOSAMAX) 70 mg tablet (Patient not taking: No sig reported) ??? Docusate Sodium 100 mg Tab (Patient not taking: No sig reported) No current facility-administered medications for this visit. ADR Allergies Allergen Reactions ??? Cis Free Text Allergy Environmental. CIS - Allergic Rhinitis ROS General: Feeling well Skin: Denies other skin complaints EXAM General: NAD, pleasant, cooperative Skin: Patient was asked to undress to the level of her comfort. Verbalized that the provider will not be checking mucous membranes/areas covered by underwear (COVID-19). Patient's decision was to remove bra and keep underwear on and have the following examined: skin of the scalp, hair, face, ears, neck, chest, breasts, abdomen, back, axillae, upper and lower extremities, hands, and feet. Areas of face under mask examined (COVID-19): [x] Yes [] No Significant Skin Findings: A. Right lower vermilion lip x 1: 0.2-0.3 cm scaly irregular pink papule. [Total: 1] B. Trunk (including the left chest) and extremities: Brown papules/plaques with waxy stuck-on appearance. C. Trunk and extremities: Multiple 0.3-0.5 cm medium-brown, evenly-pigmented macules and papules. All with regular pigment pattern on dermoscopy. No pigmented lesions suspicious for melanoma. D. Bilateral hands: No active eczema. E. Left plantar foot: Focal hyperkeratotic papule with central keratin core. F. Vertex scalp: No residual lesion appreciated on exam. ASSESSMENT/PLAN A. Actinic Keratosis - Explained etiology, natural history and premalignant potential of these lesions. - Discussed treatment with cryotherapy, including the risks and benefits. - Patient elects to proceed with cryotherapy today. Procedure: Destruction of lesion with cryotherapy (LN2). Location: As noted above. Number: 1 Discussed procedure and expectations, including risks (especially hypopigmentation) and benefits. Verbal consent obtained. Frozen with LN2, 15-30 second thaw time, twice. There were no complications;patient tolerated the procedure well. Post-procedure expectations and wound care reviewed. - Instructed patient to return to clinic for re-evaluation if lesion does not resolve with this treatment. B. Seborrheic Keratoses - Etiology discussed. - Patient reassured that benign in nature. C. Benign-Appearing Nevi - No atypical lesions or features worrisome for malignancy. - Advised patient to watch for anything new or changing. Discussed changes (bleeding, pain, change in color or shape) that should prompt re-evaluation.?? - Will continue to monitor. D. H/O Dyshidrotic Eczema - Not active. - Patient manages flares with Gold Becerril eczema cream. E. Oilton - Continue OTC treatment PRN. F. No Clinically Apparent Lesion - Based on patient history, it was likely seborrheic dermatitis or ISK resolved (sloughed off) without treatment. Follow Up: RTC in 2 years (per patient preference) for: [x] FSE [] Follow up [x] Reminder placed in system [] Appointment scheduled before exiting Note initiated by: MATILDE Bowen I am documenting this encounter acting as the scribe for and in the presence of Dr. Goss: Rand Gomez I performed the above scribed service and agree with the accuracy of the documentation in this encounter. Reyna Goss MD Electric Motor Repairman of Dermatology Department of Dermatology [facility] cc: Shelley Ortez APRN documented in this encounter Plan of Treatment Not on file documented as of this encounter Visit Diagnoses Diagnosis AK (actinic keratosis) Actinic keratosis SK (seborrheic keratosis) Other seborrheic keratosis Multiple benign nevi Benign neoplasm of skin, site unspecified History of Dyshidrotic eczema Dyshidrosis Oilton of foot Corns and callosities documented in this encounter Care Teams Cobol Engineer Relationship Specialty Start Date End Date Shelley Ortez APRN [address] [place] [address] PCP - General Family Medicine 11/21/17 01/26/22 documented as of this encounter
--- OUTSIDE RECORDS SUMMARY | 2024-03-03 09:29 | XMS_ITS | Encounter Summary ---
Author Organization [facility] [place] [address] Care Team Providers Care Clinical Operations Leader Name Role Phone Karine Garza MD Primary Care Provider Encounter Details Date Type Department Care Team (Latest Contact Info) Description 10/06/2010 9:09 AM EDT - 10/06/2010 11:59 PM EDT Hospital [place] [id number] Karine Garza MD [address] [place], [place] [id number] Discharge Disposition: Home Social History Tobacco Use [...] on filedocumented in this encounter Care Teams Clinical Operations Leader Relationship Specialty Start Date End Date Karine Garza MD [address] [place] [address] PCP - General 03/28/10 11/20/17 documented as of this encounter
--- OUTSIDE RECORDS SUMMARY | 2024-03-03 09:29 | XMS_ITS | Encounter Summary ---
[place] [address] Care Team Providers Care Toggle Press Folder And Feeder Name Role Phone Unavailable Primary Care Provider Unavailabl e Encounter Details Date Type Department Care Team (Late st Contact Info) Description 03/24/2010 11:00 AM EST Procedure visit [facility] [place] [address] Social History Tobacco Use Types Packs/Day Years [...]
--- OUTSIDE RECORDS SUMMARY | 2024-03-03 09:29 | XMS_ITS | Encounter Summary ---
Author Organization [facility] [place] [address] Care Team Providers Care Lead Carpenter Name Role Phone Woody Puente DNP Primary Care Provider [phone] Encounter Details Date Type Department Care Team (Latest Contact Info) Description 12/03/2023 Travel Social History Tobacco Use Types Packs/Day [...] on filedocumented in this encounter Care Teams Lead Carpenter Relationship Specialty Start Date End Date Woody Puente DNP [address] [place] [id number] PCP - General Family Medicine 05/09/23 documented as of this encounter
--- OUTSIDE RECORDS SUMMARY | 2024-03-03 09:29 | XMS_ITS | Encounter Summary ---
Author Organization [facility] [place] [address] Care Team Providers Care First Assistant Manager Name Role Phone Shelley Ortez APRN Primary Care Provider Encounter Details Date Type Department Care Team (Late st Contact Info) Description 11/17/2019 9:38 AM EDT - 11/17/2019 11:59 PM EDT Hospital Encounter Mammography[place] [address] Shelley Ortez APRN [address] [place], [place] [address] Encounter for screening mammogram for breast cancer Discharge Disposition: Home Social History Tobacco Use Types Packs/Day Years Used Date Smoking Tobacco: Never Smokeless Tobacco: Never Sex and Gender Information Value Date Recorded Sex Assigned at Not on file Gender Identity Not on file Sexual Orientation Not on file documented as of this encounter Medications at Time of Discharge Medication Sig Dispensed Refills Start Date End Date Calcium Carbonate 600 mg calcium (1,500 mg) Tablet Take by mouth daily. calcium-vitamin D3 600 mg calcium- 400 unit Tablet Take by mouth. clobetasol (TEMOVATE) 0.05 % OintmentIndications:Eczem a Apply to affected areas as directed 60 g 0 02/17/2015 fluorouracil (EFUDEX) 5 % CreamIndications:Actinic keratosis Apply thin layer to the nasal tip bid for 2-4 weeks as directed 40 g 0 12/09/2014 CIS Free Text Med - Aspirin 02/17/2009 alendronate (FOSAMAX) 70 mg tablet 02/17/2009 MULTIVITAMINS W-MINERALS/LUT (CENTRUM SILVER ORAL) 02/17/2009 Docusate Sodium 100 mg Tab 02/17/2009 documented as of this encounter Plan of Treatment Not on file documented as of this encounter Procedures Procedure Name Priority Date/Time Associated Diagnosis Comments MAMMO SCREENING CAD AND QUINTON BILATERAL Routine 11/17/2019 10:17 AM EDT Encounter for screening mammogram for breast cancer documented in this encounter Results * Mammo Screening Cad and Quinton Bilateral (11/17/2019 10:17 AM EDT) Anatomical Region Laterality Modality Breast Bilateral Mammography Narrative 11/17/2019 11:52 AM EDT BILATERAL MAMMOGRAPHY REASON FOR EXAM: Screening TECHNIQUE: CC and MLO views were obtained of each breast using standard 2-D mammography as well as 3-D tomosynthesis. Computer aided detection was used. This is compared with prior images. FINDINGS: ??The breasts are heterogeneously dense, which may obscure small masses. There are no suspicious microcalcifications, masses, or areas of distortion. The pattern is stable. CONCLUSION: No mammographic evidence of malignancy. RECOMMENDATION: Regular screening mammograms starting between age 40 and 50 reduces the risk of from breast cancer. All screening tests have both risks and benefits. These risks and benefits should be assessed for each individual patient through discussion with their provider to determine their preferred breast cancer screening schedule. Women should report any breast changes to a health care provider right away. Some women, because of their family history, a genetic tendency, or other factors, should be screened with annual breast MRI as well as with mammograms. (The number of women who fall into this category is very small). Patients and health care providers should discuss each patient? s history to decide if earlier screening and/or breast MRI are appropriate. Screening should continue as long as a woman is in good health and is expected to live 10 years or longer. Screening mammography may not detect 10-15% of breast cancers. A result letter has been sent to this patient by [facility]. BIRADS CATEGORY 1: NEGATIVE Shelley Ortez APRN IMG MAMMO ORDERABLES documented in this encounter Visit Diagnoses Diagnosis Encounter for screening mammogram for breast cancer documented in this encounter Care Teams First Assistant Manager Relationship Specialty Start Date End Date Shelley Ortez APRN [address] [place] [address] PCP - General Family Medicine 11/21/17 01/26/22 documented as of this encounter
--- OUTSIDE RECORDS SUMMARY | 2024-03-03 09:29 | XMS_ITS | Encounter Summary ---
Author Organization [facility] [place] [address] Care Team Providers Care Labor Custodian Name Role Phone Shelley Ortez APRN Primary Care Provider [phone] Reason for Visit * Reason Comments Skin Check * Consultation (Routine) - Closed Specialty Diagnoses / Procedures Referred By Lisha corbett Referred To Contact Dermatology Diagnoses numerous moles Shelley Ortez APRN [address] [place] [address] [facility] Dermatology [address] [place] [address] Referral ID Status Reason Start Date Expiration Date V isits Requested Visits Authorized [id number] Closed Consult, Test & Treat Connection Center 09/05/2017 09/05/2018 1 1 Encounter Details Date Type Department Care Team (Late st Contact Info) Description 11/21/2017 1:30 PM EDT Office Visit Dermatology at [facility] [address] [place] [address] Joe Carcamo MD [facility] [place] [address] Milia; Buitrago angioma; SK (seborrheic keratosis); Lentigines; Multiple benign nevi; Seborrheic keratoses, inflamed Social History Tobacco Use Types Packs/Day Years Used Date Smoking Tobacco: Never Smokeless Tobacco: Never Sex and Gender Information Value Date Recorded Sex Assigned at Not on file Gender Identity Not on file Sexual Orientation Not on file documented as of this encounter Progress Notes * Joe Carcamo MD - 11/21/2017 1:30 PM EDT DERMATOLOGY ESTABLISHED PATIENT CLINIC NOTE Date of service: 11/21/2017 Nelida Courtney : 1940 Provider: Joe Carcamo MD PROBLEM: Full Skin Exam Skin History: AK's SK's HPI Ms. Roz Neville is a 77 y.o. year old female. Established patient, last seen 02/17/2015. Here today for full skin exam. She has never had a full skin exam. - left lower lip - has gone away after she has been avoiding picking and applying Abreva. . Would like a close look at the area. - mole on left breast that has been previously burned off but came back - dry spot on right nose - very itchy on right shoulder blade - would like to know about cool sculpting ADR: Cis free text allergy MEDS: Current Outpatient Prescriptions on File Prior to Visit Medication Sig Dispense Refill ??? clobetasol (TEMOVATE) 0.05 % Ointment Apply to affected areas as directed 60 g 0 ??? fluorouracil (EFUDEX) 5 % Cream Apply thin layer to the nasal tip bid for 2- 4 weeks as g 0 ??? CIS Free Text Med - Aspirin ??? CIS Free Text Med - Calcium 600 with Vitamin D ??? alendronate (FOSAMAX) 70 mg tablet ??? MULTIVITAMINS W-MINERALS/LUT (CENTRUM SILVER ORAL) ??? Docusate Sodium 100 mg Tab No current facility-administered medications on file prior to visit. ROS General: feeling well Skin: denies other skin complaints EXAM General: NAD, pleasant, cooperative Skin: The patient was asked to disrobe to the level of their comfort. Full skin examination of the scalp, hair, head, face, neck, back, chest, abdomen, right and left upper extremities, right and left lower extremities and buttocks was normal with the exception of the findings listed below. Significant skin findings: A. Unwanted body fat (abdomen) B. Right lower lip: minimal scale with a white papule c/w milia C. Multiple 0.2-0.4cm bright red, well-demarcated papules. D. Multiple 0.4-0.6cm brown papules with waxy, stuck-on appearance. E. 0.3-0.6cm light-brown evenly pigmented, well-demarcated macules. F. Multiple, 0.3-0.5cm, medium-brown, evenly-pigmented macules and papules. No pigmented lesions suspicious for melanoma. G. Chest: inflamed0.4-1 cm, brown-black papules/plaques with waxy stuck on appearance ASSESSMENT/PLAN: A. Cosmetic Concerns (coolscultping) - Discussed coolsculpting and pricing ($1500 for one treatment) - Will call to schedule B. Milia, no concern for SCC - No need for treatment today C. Buitrago Angiomas - Reassured about benign nature and natural history. D. Seborrheic Keratoses - Reassured about benign nature and natural history. E. Solar Lentigines - Reassured about benign nature and natural history. - Sun avoidance, protective clothing and the use of SPF 30 sunscreen is advised. Observe closely for skin changes and call if such occurs F. Benign Appearing Nevi - Reassured about benign nature and natural history. G. Inflamed Seborrheic Keratosis Procedure Note: Procedure: Destruction of lesion(s) with cryotherapy. Number: 1 Location: Chest Discussed procedure and expectations including risks (including risk of hypopigmentation) and benefits. Verbal consent obtained. Frozen with LN2, 15-30 second thaw time, TWICE. There were no complications; the patient tolerated the procedure well. Post-procedure expectations and wound care were reviewed. RTC 1 year Note initiated and routed to physician for review and change by: Lottie Torres RN I, Annmarie Smith, have performed the documentation for this encounter in the presence of and acting as a scribe for JOE CARCAMO MD. I performed the services which were documented by the scribe, and I agree with the accuracy of the documentation in this encounter. JOE CARCAMO MD. Joe Carcamo MD Section of Dermatology [facility] documented in this encounter Plan of Treatment Not on file documented as of this encounter Visit Diagnoses Diagnosis Milia Sebaceous cyst Buitrago angioma Nevus, non-neoplastic SK (seborrheic keratosis) Other seborrheic keratosis Lentigines Other dyschromia Multiple benign nevi Benign neoplasm of skin, site unspecified Seborrheic keratoses, inflamed documented in this encounter Care Teams Labor Custodian Relationship Specialty Start Date End Date Shelley Ortez APRN [address] [place] [address] PCP - General Family Medicine 11/21/17 01/26/22 documented as of this encounter
--- OUTSIDE RECORDS SUMMARY | 2024-03-03 09:29 | XMS_ITS | Encounter Summary ---
Author Organization [facility] [place] [address] Care Team Providers Care Events Administrative Assistant Name Role Phone Karine Garza MD Primary Care Provider [phone] Encounter Details Date Type Department Care Team (Latest Contact Info) Description 11/10/2015 10:40 AM EDT - 11/10/2015 11:59 PM EDT Hospital En[place] [address] Karine Garza MD [address] [place], [place] [id number] Encounter for screening mammogram for breast cancer Discharge Disposition: Home Social History Tobacco Use Types Packs/Day Years Used Date Smoking Tobacco: Never Sex and Gender Information Value Date Recorded Sex Assigned at Not on file Gender Identity Not on file Sexual Orientation Not on file documented as of this encounter Medications at Time of Discharge Medication Sig Dispensed Refills Start Date End Date clobetasol (TEMOVATE) 0.05 % OintmentIndications:Ecze ma Apply to affected areas as directed 60 [...] Associated Diagnosis Comments MAMMO SCREENING CAD AND JUVE BILATERAL Routine 11/10/2015 11:02 AM EDT Encounter for screening mammogram for breast cancer documented in this encounter Results * Mammo Digital Bilateral Screening With CAD and Tomosynthesis (11/10/2015 11:02 AM EDT) Anatomical Region Laterality Modality Breast Bilateral Mammography Narrative 11/10/2015 11:22 AM EDT BILATERAL MAMMOGRAPHY REASON FOR EXAM: [...] CONCLUSION: No mammographic evidence of malignancy. RECOMMENDATION: The [employer] and The Society of Breast Imaging recommend annual screening beginning at age 40 for the general female population. Screening should continue as long as a woman is in good health and is expected to live 10 more years or longer. All women should be familiar with the known benefits, limitations, and potential harms linked to breast cancer screening. They should also know how their breasts normally look and feel and report any breast changes to a health care provider right away. Some women - because of their family history, a genetic tendency, or certain other factors - should be screened with MRIs along with mammograms. (The number of women who fall into this category is very small.) The patient and health care provider should discuss the patient history and decide if earlier screening and breast MRI are appropriate. A result letter has been sent to this patient by the [facility]. BIRADS CATEGORY 1: NEGATIVE Karine Garza MD IMG MAMMO ORDERABLES documented in this encounter Visit Diagnoses Diagnosis Encounter for screening mammogram for breast cancer documented in this encounter Care Teams Events Administrative Assistant Relationship Specialty Start Date End Date Karine Garza MD [address] [place] [address] PCP - General 03/28/10 11/20/17 documented as of this encounter
--- OUTSIDE RECORDS SUMMARY | 2024-03-03 09:29 | XMS_ITS | Encounter Summary ---
[place] [address] Care Team Providers Care Campus Manager Name Role Phone Shelley Ortez APRN Primary Care Provider Reason for Referral * Diagnostic Test (Routine) - Closed Specialty Diagnoses / Procedures Referred By Lisha corbett Referred To Contact Radiology Diagnoses Encounter for screening mammogram for breast cancer Procedures Mammo Screening Cad and Quinton Bilateral Shelley Ortez APRN [address] [place] [address] [facility] [place] [address] Referral ID Status Reason Start Date Expiration Date V isits Requested Visits Authorized [id number] Closed Specialty Service Requested 01/31/2021 07/31/2022 1 1 Reason for Visit * Diagnostic Test (Routine) - Closed Specialty Diagnoses / Procedures Referred By Lisha corbett Referred To Contact Radiology Diagnoses Encounter for screening mammogram for breast cancer Procedures Mammo Screening Cad and Quinton Bilateral Shelley Ortez APRN [address] [place] [address] [facility] [address] Referral ID Status Reason Start Date Expiration Date V isits Requested Visits Authorized [id number] Closed Specialty Service Requested 01/31/2021 07/31/2022 1 1 Encounter Details Date Type Department Care Team (Late st Contact Info) Description 11/01/2021 9:50 AM EDT - 11/01/2021 11:59 PM EDT Hospital Encounter Mammography/[place] [address] Shelley Ortez, TOOL MAINTENANCE TECHNICIAN [address] [place] [address] Encounter for screening mammogram for breast cancer [...] Sig Dispensed Refills Start Date End Date ergocalciferol, vitamin D2, (VITAMIN D ORAL) Take by mouth. acetaminophen/diphenhydra mine (TYLENOL PM ORAL) Take by mouth nightly as needed (~Twice monthly). Calcium Carbonate 600 mg calcium (1,500 mg) [...] MAMMO SCREENING CAD AND QUINTON BILATERAL Routine 11/01/2021 10:25 AM EDT Encounter for screening mammogram for breast cancer documented in this encounter Results * Mammo Screening Cad and Quinton Bilateral (11/01/2021 10:25 AM EDT) Anatomical Region Laterality Modality Breast Bilateral Mammography Narrative 11/01/2021 10:32 AM EDT BILATERAL MAMMOGRAPHY REASON FOR EXAM: [...] [facility] BIRADS CATEGORY 1: NEGATIVE Electronically signed by: DESTINY WATERS MD Shelley Ortez APRN IMG MAMMO ORDERABLES documented in this encounter Visit Diagnoses Diagnosis Encounter for screening mammogram for breast cancer documented in this encounter Care Teams Campus Manager Relationship Specialty Start Date End Date Shelley Ortez APRN [address] [place] [address] PCP - General Family Medicine 11/21/17 01/26/22 documented as of this encounter
--- OUTSIDE RECORDS SUMMARY | 2024-03-03 09:29 | XMS_ITS | Encounter Summary ---
[place] [address] Care Team Providers Care Seismograph Observer Name Role Phone Karine Garza MD Primary Care Provider [phone] Encounter Details Date Type Department Care Team (Late st Contact Info) Description 10/06/2010 [place] [phone] Karine Garza MD [address] [place], [place] [id number] Social History Tobacco Use Types Packs/Day Years Used Date Smoking Tobacco: Never Assessed Sex and Gender Information Value Date Recorded Sex Assigned at Not on file Gender Identity Not on file Sexual Orientation Not on file documented as of this encounter Plan of Treatment Not on file documented as of this encounter Procedures Procedure Name Priority Date/Time Associated Diagnosis Comments MAMMO DIAGNOSTIC CAD BILATERAL Routine 10/06/2010 10:48 AM EDT documented in this encounter Results * MAMMO DIGITAL BILATERAL DIAGNOSTIC WITH CAD (10/06/2010 10:48 AM EDT) Anatomical Region Laterality Modality Breast Bilateral Mammography 10/06/2010 10:4 8 AM EDT Narrative 10/09/2010 6:25 PM EDT BILATERAL MAMMOGRAM AND MAGNIFICATION VIEWS OF THE RIGHT BREAST ON 10/06/10: ?? DIAGNOSTIC IMAGING SUMMARY: ?? RIGHT BREAST LESION 1: PROBABLY BENIGN (BIRADS Category 3). ?? Finding: Group of coarse calcifications. ?? Size: 5mm. ?? Location: 1200, 8cm from the nipple. ?? Recommendation: These benign appearing calcifications have shown stability for one year, since 10/13, which suggests a benign process. A second one year follow-up exam of the Right breast with magnification views is recommended to be performed at the time of the patient's bilateral annual mammogram in 10/15. ? This is a (BIRADS Category 1) NEGATIVE Left mammogram. The next Left mammogram is recommended in one year. ?? Findings discussed with the patient who concurs. ?? Preliminary report E-mailed to Dr. Karine Garza on 10/06/10. ?? NARRATIVE: ?? CLINICAL INDICATION: Six-month follow-up BIRADS Category 3 probably benign Right breast for coarse calcifications. ?? TECHNIQUE: Bilateral CC and MLO, Right mag CC and Right mag ML views obtained with direct digital capture. This exam was evaluated by CAD version 8.3.17. ?? FINDINGS: This is a (BIRADS Category 3) PROBABLY BENIGN Right breast for a stable 5mm group of coarse heterogeneous calcifications at 1200, 8cm from the nipple. These calcifications appear stable, have a coarse benign morphology and a loosely grouped distribution. No worrisome calcifications are seen. No associated mass or architectural distortion is seen. The calcifications have shown stability since 10/13 which suggests a benign process. ?? The remainder of the Right breast is unremarkable. ?? This is a (BIRADS Category 1) NEGATIVE Left mammogram. There is a stable fibroglandular pattern without significant change as compared to prior studies. There is no mammographic evidence of cancer. ?? The breasts are heterogeneously dense which may limit the mammographic sensitivity for the detection of malignancy. Procedure Note Melonie [place] MD - 10/09/2010 BILATERAL MAMMOGRAM AND MAGNIFICATION VIEWS OF THE RIGHT BREAST ON 10/06/10: DIAGNOSTIC IMAGING SUMMARY: RIGHT BREAST LESION 1: PROBABLY BENIGN (BIRADS Category 3). Finding: Group of coarse calcifications. Size: 5mm. Location: 1200, 8cm from the nipple. Recommendation: These benign appearing calcifications have shown stabilityfor one year, since 10/13, which suggests a benign process. A second one year follow-up exam of the Right breast with magnification views is recommendedto be performed at the time of the patient's bilateral annual mammogram in10/15. This is a (BIRADS Category 1) NEGATIVE Left mammogram. The next Leftmammogram is recommended in one year. Findings discussed with the patient who concurs. Preliminary report E-mailed to Dr. Karine Garza on 10/06/10. NARRATIVE: CLINICAL INDICATION: Six-month follow-up BIRADS Category 3 probably benign Right breast for coarse calcifications. TECHNIQUE: Bilateral CC and MLO, Right mag CC and Right mag ML viewsobtained with direct digital capture. This exam was evaluated by CAD version8.3.17. FINDINGS: This is a (BIRADS Category 3) PROBABLY BENIGN Right breast for a stable 5mm group of coarse heterogeneous calcifications at 1200, 8cm fromthe nipple. These calcifications appear stable, have a coarse benignmorphology and a loosely grouped distribution. No worrisome calcifications are seen. No associated mass or architectural distortion is seen. The calcificationshave shown stability since 10/13 which suggests a benign process. The remainder of the Right breast is unremarkable. This is a (BIRADS Category 1) NEGATIVE Left mammogram. There is a stable fibroglandular pattern without significant change as compared to priorstudies. There is no mammographic evidence of cancer. The breasts are heterogeneously dense which may limit the mammographic sensitivity for the detection of malignancy. Karine Garza MD IMG MAMMO ORDERABLES documented in this encounter Visit Diagnoses Not on filedocumented in this encounter Care Teams Seismograph Observer Relationship Specialty Start Date End Date Karine Garza MD [address] [place] [address] PCP - General 03/28/10 11/20/17 documented as of this encounter
--- OUTSIDE RECORDS SUMMARY | 2024-03-03 09:29 | XMS_ITS | Encounter Summary ---
Author Organization [facility] Address [address] [place] [address] Care Team Providers Care Rug Hooker Hand Name Role Phone Shelley Ortez APRN Primary Care Provider Encounter Details Date Type Department Care Team (Late st Contact Info) Description 11/21/2017 10:19 AM EDT - 11/21/2017 11:22 AM EDT Hospital Encounter XRay at [facility] [address] [facility] [place] [address] Shelley Ortez APRN [address] [place], [place] [address] Encounter for screening for osteoporosis Discharge Disposition: Home Social History Tobacco Use Types Packs/Day Years Used Date Smoking Tobacco: Never Smokeless Tobacco: Never Sex and Gender Information Value Date Recorded Sex Assigned at Not on file Gender Identity Not on file Sexual Orientation Not on file documented as of this encounter Medications at Time of Discharge Medication Sig Dispensed Refills Start Date End Date clobetasol (TEMOVATE) 0.05 % OintmentIndications:Eczem a Apply [...] SPINE, HIP, AND/OR WHOLE BODY (GENERIC) Routine 11/21/2017 11:23 AM EDT Encounter for screening for osteoporosis documented in this encounter Results * DXA Central-Spine, Hip, And/Or Whole Body (Generic) (11/21/2017 11:23 AM EDT) Anatomical Region Laterality Modality C-spine, Hip N/A Other Impressions 11/21/2017 12:05 PM EDT Measurements meet WHO criteria for osteoporosis. Bone mineral density measurements are decreased by 7% over 20 years. Estimating Fracture Risk: The relationship between bone [...] BMD measurements and plots are available in [employer] under the imaging tab. Paper copies will be sent to providers without [employer] access. If you have received this report without the data sheet and do not have access to [employer], please contact Radiology Search Coordinator at [phone] Saturday thru Saturday 8am-4pm. Narrative 11/21/2017 12:05 PM EDT EXAMINATION: DXA CENTRAL-SPINE, HIP, AND/OR WHOLE BODY (GENERIC) CLINICAL HISTORY: ??77-year-old female current and past calcium supplement use, past use of this possibility TECHNIQUE: Scans were acquired at the lumbar spine and left hip. FINDINGS: Femoral neck BMD: 0.471 ? g/cm2 Lowest T-score at the diagnostic region of interest: T-score: -3.4, SRI: Lumbar spine, WHO diagnosis: osteoporosis. ......... Comparison......... Previous scan:12/02/2012 Baseline scan:04/12/1998 Total spine: Compared to the previous, 2.8 % decrease. This change is so small that it is unlikely to represent a statistically significant change. Compared to the baseline, 7.3 % decrease. Total hip: Compared to the previous, 4.7 % decrease. Compared to the baseline, 10.2 % decrease. Procedure Note Devi Chavez MD - 11/21/2017 EXAMINATION: DXA CENTRAL-SPINE, HIP, AND/OR WHOLE BODY (GENERIC) CLINICAL HISTORY: 77-year-old female current and past calcium supplementuse, past use of this possibility TECHNIQUE: Scans were acquired at the lumbar spine and left hip. FINDINGS: Femoral neck BMD: 0.471 g/cm2 Lowest T-score at the diagnostic region of interest: T-score: -3.4, SRI: Lumbar spine, WHO diagnosis: osteoporosis. ......... Comparison......... Previous scan:12/02/2012 Baseline scan:04/12/1998 Total spine: Compared to the previous, 2.8 % decrease. This change is so small that itis unlikely to represent a statistically significant change. Compared to the baseline, 7.3 % decrease. Total hip: Compared to the previous, 4.7 % decrease. Compared to the baseline, 10.2 % decrease. IMPRESSION Measurements meet WHO criteria for osteoporosis. Bone mineral density measurements are decreased by 7% over 20 years. Estimating Fracture Risk: The relationship between bone mineral density (BMD) and risk of fractureis well established. As BMD decreases, risk increases. Quantifying risk isdifficult and is usually limited to estimation of the relative risk - a term which mayhave limited value when trying to discuss an individual's risk. Estimatingthe absolute risk for a patient requires an understanding of the incidencerate in a given population and consideration of multiple, partially independent,risk factors in addition to BMD. The World Health Organization (WHO) has developed a fracture riskprediction tool that calculates a ten-year risk of major osteoporotic fracture basedon femoral neck bone density measurements and nine clinical risk factorsfor individuals who have not been treated for osteoporosis. This isavailable through an interactive web-based interface (http://www.shef.ac.uk/FRAX/)and can be used to estimate a given patient's absolute risk of majorosteoporotic fracture or hip fracture over the next 10 years. These estimates mayprove useful when discussing risk with a patient. It is important, however, to understand the tool's limitations and how a given individual's risk mightdiffer from the tool's estimate. The tool does not take into account thedose-response associated with most risk factors. For example, the significant increasein risk associated with multiple prior fractures compared to a single priorfracture is not taken into account. Similarly, the location of a previous fracture,the amount of glucocorticoids and number of cigarettes smoked are notconsidered. These limitations are discussed in a Frequently Asked Questions sectionof the FRAX website which you are encouraged to review. DEXA data sheets with BMD measurements and plots are available in [employer]under the imaging tab. Paper copies will be sent to providers without [employer] access.If you have received this report without the data sheet and do not haveaccess to [employer], please contact Radiology Search Coordinator at [phone] Saturday thr 8am-4pm. Shelley Ortez APRN IMG DEXA ORDERABLES documented in this encounter Visit Diagnoses Diagnosis Encounter for screening for osteoporosis Special screening for osteoporosis documented in this encounter Care Teams Rug Hooker Hand Relationship Specialty Start Date End Date Shelley Ortez APRN [address] [place] [address] PCP - General Family Medicine 11/21/17 01/26/22 documented as of this encounter
--- OUTSIDE RECORDS SUMMARY | 2024-03-03 09:29 | XMS_ITS | Clinical Summary ---
Author Organization [facility] Address [facility] [place] [address] Care Team Providers Care Drying Machine Operator Package Yarns Name Role Phone Woody Puente DNP Primary Care Provider Allergies Active Allergy Reactions Criticality Noted Date Comments Cis Free Text Allergy Environmental. CIS - Allergic Rhinitis Medications Medication Sig Dispensed Refills Start Date End Date Status CIS Free Text Med - Aspirin 02/17/2009 Active Additional Information Patient not taking.Reported on 11/17/2019 alendronate (FOSAMAX) 70 mg tablet 02/17/2009 Active MULTIVITAMINS W-MINERALS/LUT (CENTRUM SILVER ORAL) 02/17/2009 Active Docusate Sodium 100 mg Tab 02/17/2009 Active fluorouracil (EFUDEX) 5 % CreamIndications:Act inic keratosis Apply thin layer to the nasal tip bid for 2-4 weeks as directed 40 g 0 12/09/2014 Active Additional Information Patient not taking.Reported on 11/01/2021 clobetasol (TEMOVATE) 0.05 % OintmentIndications: Eczema Apply to affected areas as directed 60 g 0 02/17/2015 Active Additional Information Patient not taking.Reported on 11/01/2021 calcium-vitamin D3 600 mg calcium- 400 unit Tablet Take by mouth. Active Calcium Carbonate 600 mg calcium (1,500 mg) Tablet Take by mouth daily. Active ergocalciferol, vitamin D2, (VITAMIN D ORAL) Take by mouth. Active acetaminophen/diphen hydramine (TYLENOL PM ORAL) Take by mouth nightly as needed (~Twice monthly). Active divalproex ER (Depakote ER) 250 mg ER 24 hr tablet Take 125 mg by mouth daily. 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 Encounters Date Type Department Care Team Description 12/03/2023 11:15 AM EDT Office Visit Dermatology at [address] [place] [id number] Reyna Goss MD Skin tag; SK (seborrheic keratosis); AK (actinic keratosis); Seborrheic dermatitis; Inflamed seborrheic keratosis 12/03/2023 9:52 AM EDT - 12/03/2023 11:59 PM EDT Hospital Encounter Mammography/[place] [address] Woody Puente, TOLU Encounter for screening mammogram for breast cancer Discharge Disposition: Home 12/03/2023 Travel from Last 3 Months Immunizations Name Administration Dates Next Due Pneumococcal 23-Valent Polysaccharide (Pneumovax 23) 02/25/2003 Td Adult (not absorbed) 10/19/2004 Family History Medical History Relation Comments Breast Cancer Maternal Grandmother Relation Status Comments Maternal Grandmother Social History Tobacco Use Types Packs/Day Years Used Date Smoking Tobacco: Never Smokeless Tobacco: Never Sex and Gender Information Value Date Recorded Sex Assigned at Not on file Gender Identity Not on file Sexual Orientation Not on file Plan of Treatment Health Maintenance Due Date Last Done Comments Zoster vaccine (1 of 2) 02/28/1988 Advance Directive 1993 Pneumoccocal Vaccine: 65+ (2 of 2 - PCV) 02/26/2004 02/25/2003 Tetanus/Diphtheria/Pertussis Vaccines (1 - Tdap) 10/20/2004 10/19/2004 Covid-19 Vaccine (1 - 2022-2 4 season) 2024 Influenza (Flu) vaccine (1 o f 1 - Influenza standard series) 01/05/2024 Bone Density Scan 11/21/2032 11/21/2017, , 10/06/2010 Breast Cancer screening Discontinued 12/03/19 24, 11/01/2021, 11/17/2019, Additional history exists Procedures Procedure Name Priority Date/Time Associated Diagnosis Comments MAMMO SCREENING CAD AND QUINTON BILATERAL Routine 12/03/2023 10:11 AM EDT Encounter for screening mammogram for breast cancer DXA CENTRAL SPINE, HIP, AND/OR WHOLE BODY (GENERIC) Routine 11/21/2017 11:23 AM EDT Encounter for screening for osteoporosis from Last 3 Months or Most Recently Relevant to Health Maintenance Results * Mammo Screening Cad and Quinton Bilateral (12/03/2023 10:11 AM EDT) Prescription Eyewear WORKSTATION ID [employer][id number] DH RAD Anatomical Region Laterality Modality Breast Bilateral Mammography Impressions 12/06/2023 2:24 PM EDT No mammographic evidence of malignancy. Routine screening mammography is recommended. FINAL ASSESSMENT: BI-RADS Category 2: Benign * ??Regular screening mammograms starting at age 40 reduce the risk of from breast cancer. * ??Individuals should discuss the risks and benefits with their provider to determine their preferred breast cancer screening schedule, and at what age screening should stop. * ??Individuals should report any breast changes to a health care provider right away. * ??Some Individuals, because of their family history, a genetic tendency, or other factors, should consider being screened with annual breast MRI as well as with mammograms. * ??Screening mammography may not detect 10-15% of?breast cancers. Thank you for letting us participate in the care of this patient. ??If you are a health care provider and have any questions regarding this report, please contact the number below. ??For patients who have questions please contact the health healthcare advisory services manager that requested your imaging first. ? Narrative 12/06/2023 2:24 PM EDT EXAMINATION: MAMMO SCREENING CAD AND QUINTON BILATERAL REASON FOR EXAM: Screening history of benign bilateral breast biopsies. TECHNIQUE: CC and MLO views were obtained of BOTH breasts. 2D and 3D tomosynthesis images were obtained. Computer aided detection was used. COMPARISON: Comparison was made to the prior relevant examinations. BREAST DENSITY: The breast tissue is heterogeneously dense, which may obscure small masses. FINDINGS: Postbiopsy clips are seen bilaterally, one on the right, 2 on the left. Scattered coarse calcifications are also present bilaterally. There are no suspicious microcalcifications, masses, or areas of distortion. Stable appearance. Woody Shima [facility] IMG MAMMO ORDERABLE S * DXA Central-Spine, Hip, And/Or Whole Body [...] BMD measurements and plots are available in [employer] under the imaging tab. Paper copies will be sent to providers without [employer] access. If you have received this report without the data sheet and do not have access to [employer], please contact Radiology Clinical Analyst at [phone] Saturday thru Saturday 8am-4pm. Narrative 11/21/2017 12:05 [...] BMD measurements and plots are available in [employer]under the imaging tab. Paper copies will be sent to providers without [employer] access.If you have received this report without the data sheet and do not haveaccess to [employer], please contact Radiology Clinical Analyst at [phone] Saturday thruFrid 8am-4pm. Shelley Ortez APRN IMG DEXA ORDERABLES from Last 3 Months or Most Recently Relevant to Health Maintenance Care Teams Drying Machine Operator Package Yarns Relationship Specialty Start Date End Date Woody Puente DNP [address] [place] [id number] PCP - General Family Medicine 05/09/23
--- OUTSIDE RECORDS SUMMARY | 2024-03-03 09:29 | XMS_ITS | Encounter Summary ---
Author Organization [facility] [place] [address] Care Team Providers Care Building Wrecker Name Role Phone Shelley Ortez APRN Primary Care Provider Encounter Details Date Type Department Care Team (Late st Contact Info) Description 11/21/2017 11:23 AM EDT - 11/21/2017 11:59 PM EDT Hospital En[place] [address] Shelley Ortez APRN [address] [place], [place] [id number] Breast screening Discharge Disposition: Home Social History Tobacco Use Types Packs/Day Years Used Date Smoking Tobacco: Never Smokeless Tobacco: Never Sex and Gender Information Value Date Recorded Sex Assigned at Not on file Gender Identity Not on file Sexual Orientation Not on file documented as of this encounter Medications at Time of Discharge Medication Sig Dispensed Refills Start Date End Date calcium-vitamin D3 600 mg calcium- 400 unit [...] Associated Diagnosis Comments MAMMO SCREENING CAD AND QIUNTON BILATERAL Routine 11/21/2017 11:45 AM EDT Breast screening documented in this encounter Results * Mammo Screen CAD and Quinton Bilat (Generic) (11/21/2017 11:45 AM EDT) Anatomical Region Laterality Modality Breast Bilateral Mammography Narrative 11/21/2017 12:16 PM EDT BILATERAL MAMMOGRAPHY REASON FOR EXAM: Screening [...] No mammographic evidence of malignancy. RECOMMENDATION: The [employer] and The Society of [...] documented in this encounter Visit Diagnoses Diagnosis Breast screening Breast screening, unspecified documented in this encounter Care Teams Building Wrecker Relationship Specialty Start Date End Date Shelley Ortez APRN [address] [facility] [address] [place] [address] PCP - General Family Medicine 11/21/17 01/26/22 documented as of this encounter
--- OUTSIDE RECORDS SUMMARY | 2024-03-03 09:29 | XMS_ITS | Encounter Summary ---
Author Organization [facility] [place] [address] Care Team Providers Care Land Measurer Name Role Phone Woody Puente TOLU Primary Care Provider [phone] Encounter Details Date Type Department Care Team (Late st Contact Info) Description 03/26/2005 [place] [address] Vishnu Fox MD [facility] DIAGNOSTIC [place] [address] Social History Tobacco Use Types Packs/Day Years [...] Associated Diagnosis Comments SURGICAL PATHOLOGY REPORT Routine 03/26/2005 1:38 PM EST documented in this encounter Results * Surgical Pathology Report (03/26/2005 1:38 PM EST) Surgical Pathology Report [id number] ? Location: 5L The signing pathologist has (i) examined the relevant preparation(s) for the specimen(s) and (ii) rendered or confirmed the diagnosis(es). . ?Pathology Surgical Pathology Final Report Clinical Information Specimen Submitted: A - Left breast Clinical History: Coarse calcs. Clinical Diagnosis: FAC/fibrosis/DCIS. Report to: Karine Garza MD [facility] [address] [place] [address] Gross Description Specimen: ?Received in two containers. 1 - Labeled/Fixative: ??Left breast with calcifications, formalin. Qty/Size/Weight: ? Three needle core biopsies, ranging from ? 0.5 x 0.3 cm to 5.5 x 0.3 cm. ??Cylindrical cores of ? orr-white and yellow-white, fatty and fibrofatty ? tissue. Sections/Processing : ?? The longest core is bisected. ??Submitted in (A1). 2 - Labeled/Fixative: ??Left breast no calcifications, formalin. Qty/Size/Weight: ? Multiple needle core biopsies, ranging from ? 0.3 x 0.3 cm to 3.0 x 0.3 cm. Sections/Processing : ?? Submitted in (A2-A3). ??(T3) ??aje/SNS Microscopic Description Slides reviewed, microscopic description not recorded. Diagnosis Needle biopsies: ?Left breast. Diagnosis: ?Fibrocystic disease with fibroadenomatous change. Microcalcifications : ??Coarse and clustered, associated with ?fibroadenomatous change. CR-0 03/27/05 WAW 11/22/05 Verified by: ? Simona Orr MD ?Pathologist ?(Electronic Signature) The attending pathologist whose signature appears on this report has reviewed all diagnostic slides and has edited the gross and/or microscopic portion of the report in rendering the final pathologic diagnosis. TRISTAN SHETH 03/26/2005 1:38 PM EST Vishnu Fox MD PATHOLOGY/CYTOLOGY O RDERABLES TRISTAN SHETH documented in this encounter Visit Diagnoses Not on filedocumented in this encounter Care Teams Land Measurer Relationship Specialty Start Date End Date Woody Puente DNP [address] [place] [id number] PCP - General Family Medicine 05/09/23 documented as of this encounter
--- OUTSIDE RECORDS SUMMARY | 2024-03-03 09:29 | XMS_ITS | Encounter Summary ---
Author Organization [facility] [place] [address] Care Team Providers Care Plastic Printer Name Role Phone Karine Garza MD Primary Care Provider [phone] Encounter Details Date Type Department Care Team (Latest Contact Info) Description 11/19/2013 9:49 AM EDT - 11/19/2013 11:59 PM EDT Hospital [place] [id number] CLINIC, Karine Delarosa MD [address] [place], [place] [id number] Discharge Disposition: Home Social History Tobacco Use [...] Date/Time Associated Diagnosis Comments MAMMO SCREENING CAD BILATERAL Routine 11/19/2013 10:13 AM EDT documented in this encounter Results * Mammo digital bilateral Screening with CAD (11/19/2013 10:13 AM EDT) Anatomical Region Laterality Modality Breast Bilateral Mammography 11/19/2013 10:1 3 AM EDT Narrative 11/19/2013 11:49 AM EDT Reason for Exam: Screening ?? Technique: Craniocaudal (CC) and Medio-lateral Oblique (MLO) views of both breasts obtained with direct digital capture. In addition to routine 2-D imaging, this exam was also performed with 3-D Tomographic Imaging (MLO and CC). ?? The exam was evaluated by CAD version 8.3.17. ?? Findings: ?? This is a negative mammogram (ACR Category 1). There is a stable fibroglandular pattern without significant change from prior studies. There is no mammographic evidence of cancer. The breasts are heterogeneously dense which limits mammographic sensitivity for the detection of malignancy. ?? CONCLUSION: This is a NEGATIVE mammogram (ACR Category 1). ?? Routine screening mammography is recommended with the frequency dependent upon the patients age and breast cancer risk factors. A letter has been sent to this patient by the breast imaging center. ?? Procedure Note Vishnu Fox MD - 11/19/2013 Reason for Exam: Screening Technique: Craniocaudal (CC) and Medio-lateral Oblique (MLO) views of both breasts obtained with direct digital capture. In addition to routine 2-D imaging, this exam was also performed with 3-D Tomographic Imaging (MLOand CC). The exam was evaluated by CAD version 8.3.17. Findings: This is a negative mammogram (ACR Category 1). There is a stablefibroglandular pattern without significant change from prior studies. There is no mammographic evidence of cancer. The breasts areheterogeneously dense which limits mammographic sensitivity for the detection ofmalignancy. CONCLUSION: This is a NEGATIVE mammogram (ACR Category 1). Routine screening mammography is recommended with the frequency dependentupon the patients age and breast cancer risk factors. A letter has been sent to this patient by the breast imaging center. Karine Garza MD IMG MAMMO ORDERABLES documented in this encounter Visit Diagnoses Not on filedocumented in this encounter Care Teams Plastic Printer Relationship Specialty Start Date End Date Karine Garza MD [address] [place] [address] PCP - General 03/28/10 11/20/17 documented as of this encounter
--- OUTSIDE RECORDS SUMMARY | 2024-03-03 09:29 | XMS_ITS | Encounter Summary ---
Author Organization [facility] [place] [address] Care Team Providers Care Sales Donor Recruitment Representative Name Role Phone Woody Puente DNP Primary Care Provider Encounter Details Date Type Department Care Team (Late st Contact Info) Description 12/03/2023 9:52 AM EDT - 12/03/2023 11:59 PM EDT Hospital Encounter Mammography[place] [address] Woody Puente DNP [address] [place], [place] [address] Encounter for screening mammogram for breast cancer [...] Sig Dispensed Refills Start Date End Date divalproex ER (Depakote ER) 250 mg ER 24 hr tablet Take 125 mg by mouth daily. ergocalciferol, vitamin D2, (VITAMIN D ORAL) Take [...] and Quinton Bilateral (12/03/2023 10:11 AM EDT) WORKSTATION ID [id number] DH RAD Anatomical Region Laterality Modality [...] who have questions please contact the health senior care specialist that requested your imaging first. ? Electronically signed by: Celena Washington [facility] ([phone]), at 12/06/2023 2:24 PM Narrative 12/06/2023 2:24 PM EDT EXAMINATION: MAMMO [...] or areas of distortion. Stable appearance. Woody Puente DNP IMG MAMMO ORDERABLE S documented in this encounter Visit Diagnoses Diagnosis Encounter for screening mammogram for breast cancer documented in this encounter Care Teams Sales Donor Recruitment Representative Relationship Specialty Start Date End Date Woody Puente DNP [address] [place] [address] [place] [address] PCP - General Family Medicine 05/09/23 documented as of this encounter
--- NOTE | 2024-03-03 10:00 | DI.US_ITS ---
Exam(s) US SOFT TISSUE EXTREMITY EXAM: US SOFT TISSUE EXTREMITY CLINICAL HISTORY: Mass of lt thigh, R22.42, ? lipoma, TTP. TECHNIQUE: Ultrasound was performed using standard protocol. COMPARISON: No exams were available for comparison FINDINGS: Sonographic assessment utilizing grayscale and color Doppler imaging was performed and targeted to th e area of clinical concern in the medial thigh. The area of palpable abnormality corresponds to homogeneous fatty echogenicity area measuring 1.8 x 0 .8 x 1.7 cm. Findings are consistent with a simple lipoma. No evidence of calcifications or cystic components. No vascularity. No adjacent soft tissue swelling. IMPRESSION: Findings consistent with a 1.8 centimeter lipoma corresponding to the palpable abnormality. DATA REPOSITORY:
== END 2024-03-03 09:42 ==
LOC: DI 09:27
PROVIDERS: PCP Nurse Practitioner Family; Visit Provider Nurse Practitioner Family
DX: R22.42 Localized swelling, mass and lump, left lower limb (principal); D17.24 Benign lipomatous neoplasm of skin and subcutaneous tissue of left leg
CPT/HCPCS: 76881

== ENCOUNTER 2024-12-08 01:58 | Outpatient (CLI) | payer MEDICARE, SELFPAY ==
--- NOTE | 2024-12-08 12:30 | DI.US_ITS ---
APPROVED REPORT EXAM: Comprehensive 2D, Doppler, and color-flow Echocardiogram Patient Location: Out-Patient Lead Pastor: Glory Ivory RDCS (AE) Indications: Aortic stenosis Other Information Study Quality: Adequate Conclusion Normal left ventricular wall thickness and chamber size. Ejection fraction is 60%. Wall motion is normal Normal right ventricular size and function Both atria are normal in size Aortic valve is calcified. There is moderate to severe aortic stenosis. Peak gradient is 39, mean 28 mmHg. Calculated aortic valve area 0.7 cm??. There is no aortic regurgitation Mitral annular calcification, trace mitral regurgitation Normal estimated right ventricular systolic pressure 28 mmHg Wall motion Left Ventricle The left ventricle is normal size. The left ventricular systolic function is normal. The left ventricular ejection fraction is within the normal range. There is normal left ventricular wall thickness. There is normal LV segmental wall motion. There is no ventricular septal defect visualized. LVEF is 58%. Right Ventricle The right ventricle is normal size. The right ventricular systolic function is normal. Atria The left atrium size is normal. The right atrium size is normal. The interatrial septum is intact with no evidence for an atrial septal defect. Aortic Valve Aortic valve is calcified. Number of aortic valve leaflets could not be assessed. Moderate aortic stenosis. Highest mean aortic valve gradient is 39.0mmHg. Highest mean aortic valve gradient is 26.84mmHg. No aortic regurgitation is present. Mitral Valve Mild mitral annular calcification. No evidence of mitral valve stenosis. Trace mitral regurgitation. Tricuspid Valve The tricuspid valve is normal in structure. There is no tricuspid valve stenosis. Mild tricuspid regurgitation. The RVSP is 27.8_ mmHg. Pulmonic Valve The pulmonary valve is normal in structure. There is no pulmonic valvular stenosis. Trace pulmonic regurgitation. Great Vessels The aortic root is normal in size. The ascending aorta is normal in size. Aortic arch is normal in caliber. IVC is normal in size and collapses >50% with inspiration. Pericardium There is no pericardial effusion. 2D Dimensions IVSD d PLAX 1.02 cm F: 0.6-1.0 Ao Root d 2.62 cm F: 2.7 - 3.3 LVPW d PLAX 1.02 cm F: 0.6 - 1.0 Ao Asc Diam d 3.22 cm F: 2.3 - 3.1 LVID d PLAX 3.50 cm F: 3.8 - 5.2 LVDs 2.40 cm F: 2.2 - 3.5 LV EF Teichholz 60.1 % FS 31.22 % LV EDV (Teich) 50.3 mL LV ESV (Teich) 20.1 mL M-Mode TAPSE 1.81 cm (M/F) >1.7 Auto EF LV EDV A4C 49.5 mL LV EDV A2C 64.3 mL LV EDV BP 56.4 mL LV ESV A4C 21.9 mL LV ESV A2C 27.9 mL LV ESV BP 24.6 mL LVEF(%) A4C 55.7 % LVEF(%) A2C 56.6 % LVEF(%) BP 56.3 % LV SV A4C 27.6 ml LV SV A2C 36.4 ml LV SV BP 31.8 ml LV CO A4C 2.5 L/min LV CO A2C 3.3 L/min LV CO BP 2.9 L/min HR A4C 91.37 BPM HR A2C 90.00 BPM LV EDV Index (BP) LA Volume LA Length A4C 4.4 cm LA Length A2C 4.5 cm LA Area A4C s 9.98 cm2 LA Area A2C s 13.19 cm2 LA Vol A4C A-L 19.41 mL LA Vol A2C A-L 32.61 mL LA Vol Biplane A-L 25.7 mL LA Vol/BSA A4C A-L LA Vol/BSA A2C A-L LA Vol/BSA BP A-L 16.8 mL/m2 LA Vol A4C MOD 18.1 mL LA Vol A2C MOD 31.0 mL LA Vol BP MOD 24.0 mL RA Volume RA Area A4C 8.3 cm2 RA ESV A4C (A-L) 16.4mL RA Vol/BSA A4C A-L RA Length A4C 3.6 cm RA ESV A4C (MOD) 15.4mL LV Diastology MV E' medial 0.058 (>0.07 m/s) MV E Vmax 1.05 (0.4-1.3 m/s) MV E' lateral 0.082 (>0.1 m/s) Aortic Valve AoV Vmax 3.12 m/s LVOT Vmax 0.79 m/s AoV Peak Grad 39.0 mmHg LVOT Peak Grad 2.5 mmHg AoV Area (Vmax) 0.68 cm2 LVOT VTI 0.163 m AoV VTI 0.709 m LVOT Mean Grad 1.4 mmHg AoV Mean Govind. 2.52 m/s LVOT SV 44.12 mL AoV Mean Grad 26.8 mmHg LVOT Diam s 1.85 cm AoV Area (VTI) 0.62 cm2 AV Regurg Peak Gr. 39.00 mmHg Velocity Ratio 0.25 Mitral Valve MV Vmax TIPS 1.04 m/s MV Mean Grad 1.6 (<2mmHg) MV Area PHT 6.89 cm2 MV VTI 0.193 m Pulmonary Valve PV Vmax 0.92 (0.5-1.5 m/s) RVOT Vmax 0.39 m/s PV Peak Grad 3.4 mmHg RVOT Peak Gr. 0.6 mmHg PV Mean Govind 0.56 m/s RVOT VTI 0.070 m PV Mean Grad 1.5 mmHg RVOT Mean Gr. 0.4 mmHg Tricuspid Valve RA Pressure 3.00 mmHg TR Vmax 2.49 m/s TV S' 0.08 m/s TR Peak Grad 24.7 mmHg RVSP (TR) 27.8 mmHg
== END 2024-12-08 02:18 ==
LOC: DI 01:59
PROVIDERS: PCP Nurse Practitioner Family; Visit Provider Internal Medicine Cardiovascular Disease
DX: I35.0 Nonrheumatic aortic (valve) stenosis (principal)
CPT/HCPCS: 93306

== ENCOUNTER → 2025-01-05 10:47 | Outpatient (BNVA) | payer MEDICARE, SELFPAY | PROVIDERS: PCP Nurse Practitioner Family; Referring Provider Nurse Practitioner Family; Visit Provider Internal Medicine Cardiovascular Disease | DX: I35.0 Nonrheumatic aortic (valve) stenosis (principal) | CPT/HCPCS: 99213 ==

== ENCOUNTER 2025-02-18 05:18 | Outpatient (CLI) | payer MEDICARE, SELFPAY ==
[2025-02-18 09:01] LABS: ALT 22 U/L (14-59); AST 16 U/L (15-37); Albumin 3.8 g/dL (3.4-5.0); Alkaline Phosphatase 101 U/L (46-116); Anion Gap 8.0 mmol/L (3-11); BUN 14 mg/dL (7-18); Bilirubin, Total 0.4 mg/dL (0.2-1.0); CO2 29.0 mmol/L (21.0-32.0); Calcium 9.5 mg/dL (8.5-10.1); Chloride 104 mmol/L (98-107); Estimated GFR 71.71 (mL/min/1.73m2); Glucose 91 mg/dL (74-106); Potassium 4.2 mmol/L (3.5-5.1); Sodium 141 mmol/L (136-145); Total Protein 7.5 g/dL (6.4-8.2)
[2025-02-18 09:50] LABS: Calculated LDL 164 mg/dL (<100); Cholesterol 272 mg/dL (<200); HDL Cholesterol 79 mg/dL (>or=50); Triglyceride 145 mg/dL (<150); Vitamin D 25 Total 53 ng/mL (30-100)
== END 2025-02-18 05:19 | disposition home or self-care (01) ==
PROVIDERS: PCP Nurse Practitioner Family; Visit Provider Nurse Practitioner Family
DX: E78.2 Mixed hyperlipidemia (principal); M81.0 Age-related osteoporosis without current pathological fracture
CPT/HCPCS: 36415; 80053; 80061; 82306